=== PATIENT | male | born 1950 | race Caucasian/White ===

== ENCOUNTER 2017-09-24 10:00 | Outpatient (RCR) | payer MEDICARE, OTHER, SELFPAY ==
--- NOTE | 2017-08-26 12:49 | HP.PTEVAL_ITS ---
Patient's Visit Information AMAYA OSULLIVAN is a 67 year old M referred to Physical Therapy by DO SHAYNE Mart with a diagnosis of R TKA. Date of Evaluation: 08/25/17 Physical Therapist: John Paz - Visit Plan Frequency: 2-3x /Week Duration: 12 weeks Plan: Start with quad control, R knee ROM, pain control modalities including ice /vaso, glute strengthening and HS strengthening. Progress to functional strengthening and gait progression. - Subjective Subjective: Pt. is here today for his initial evaluation with diagnosis of R TKA. Pt. has his surgery on 08/17/17. Pt. is known to this PT as he had his L knee replaced last year. Pt. reports that he is doing okay and is doing his HEP as prescribed by physician. He lives at home with his . Pt. reports having increased R knee pain, currently 8/10. pt. has incerased pain with attempts to bend and straighten his knee. Pt. reports difficulty with walking, but has been getting up every hour to walk in the house. Pt. is also icing as prescribed. He denies N/T in either LE. Pt. does have pain in upper thigh close to where torniquete was placed. Prior to surgery pt. was ambulating without issues, but was having some R knee pain limiting overall mobility. Pt. is hopeful to get back to all recreational activities without issues. - Pain R knee Pain Intensity (Out of 10): 8 Pain Intensity Range: 5, 9 - Objective POSTURE: Pt. has increased L wt. shift in stance, flexed posture with lacking R TKE during stance. Pt. uses FWW for stability. Pt. is able to increase posture, but has difficulty achieving TKE on RLE. PALPATION: Pt. has increased redness around patella and close to incision. Pt. has no seeping/drainage and incision does appear to be intact (no signs of dehiscence), but has increased redness. His knee is warm to the touch and brawny like edema. Pt. has negative homans signs bilaterally and is wearing bilateral knee TEDs. NEUROLOGICAL: Pt. has normal sensation to light and sharp touch of bilateral LEs. Pt. has bilateral 2 + achilles DTR. Pt. is able to rise on heels and toes without visible weakness , but does use AD for stability. ROM: L knee 0-0-124deg. R knee 0-10-73deg in supine. Pt. has increased pain with end ranges of motions. Pt. has normal bilateral hip ROM, tight HS bilaterally. MMT- LLE- ankle 5/5 throughout; knee- ext 5-/5, flexion 5-/5; hip- flexion 4+/5, and 4+/5, ext 4+/5. RLE- ankle 5/5 throughout; knee- ext 3+/5 (no over pressure added), flexion 3+/5; hip- flexion 3/5, abd 4-/5, ext 4/5. GAIT: Pt. was able to ambulate 259ft. with FWW, but has increased use of AD, decreased TKE on R side, decreased R step length and lacks heel strike with initial contact. STAIRS: Pt. was able to negotiate 5 steps with 2HR with step to pattern laoding LLE throughout. - Goals Goal 1:: Pt. to be I with HEP. Goal Time Frame: 8-12 Weeks Goal 2:: Pt. to have increased R knee ROM to 0-0-120deg allowing for increased ability to complete al functional mobility. Goal Time Frame: 4-6 Weeks Goal 3:: Pt. to ambulate without AD with normal gait pattern for 1000+ feet with 0-1/10 pain allowing for increased independence in community. Goal Time Frame: 4-6 Weeks Goal 4:: Pt. to have increased RLE strength by 1/2 grade of all effected musculature. Goal Time Frame: 4-6 Weeks Goal 5:: Pt. to negotiate steps with 1 HR with reciprocal pattern with 0-1/10 pain. Goal Time Frame: 6-8 Weeks Goal 6:: Pt. to sleep throughout the night with 0-1/10 pain allowing for increased quality of life. Goal Time Frame: 4-6 Weeks - Rehabilitation Potential Physical Therapy Diagnosis: Pt. has hypombility, difficulty walking, RLE weakness and increased pain S/P R total knee arthroplasty. Pt. does have increased redness at his anterior knee and was pretty sensitive to light touch. He had negative homans sign. I did recommend that he follow up with his physician soon to rule out an infection. I went and talk to his physician office and was able to get him in this week. Rehabilitation Potential: Excellent - Anticipated Interventions Patient/Client Instruction: Educate patient on: Condition, Plan of Care, Risk Factors, Benefits of Fitness Program For the Purpose of:: To reduce risk of recurrence, To improve safety, To improve health and function, To foster healthy habits, To improve decision making, To facilitate caregiver knowledge, To improve self management, To prevent re-injury, To improve ability to perform tasks related to life management, To improve tolerance to ADL's Therapeutic Exercise to Include: Strength training, Power training, Endurance training, Balance training, Coordination, Agility training, Postural training, Flexibilty training, Gait and locomotor training, Passive ROM, Active ROM For the Purpose of:: To decrease pain, To decrease swelling/inflammation, To increase ROM, To improve nutrient delivery to tissue, To increase oxygenation perfusion, To improve muscle performance and motor function, To improve ability to perform ADL's, To improve ability of physical actions for home/community/work /leisure, To improve gait and locomotor functions, To improve health of tissue, To decrease soft tissue restriction, To increase flexibility/ROM, To improve endurance, To improve balance IF ES: Yes Cryotherapy (ice pack, ice massage): Yes Vasopneumatic device: Yes For the Purpose of:: To decrease pain, To decrease swelling/inflammation, To increase ROM Thank you for the opportunity to evaluate your patient. For Medicare and Medicare HMO plans, please review the plan of care and approve it. It will need to be FAXED BACK to us at [phone] for Medicare purposes. Please let me know if there are questions or concerns regarding this plan of care. Physician Signature: Date:
--- NOTE | 2017-09-28 07:49 | HP.PTREVAL_ITS ---
Sunny Henriquez DO, It has been my pleasure to treat AMAYA OSULLIVAN over the last 12 visits for R TKA. Please see the progress note below for an update on the physical therapy plan of care! Subjective: Pt. reports I am doing pretty well. He reports being 90% better overall. He is to follow up with physician later this date. Pt. is eager to get back to all exercises on own at this point in time. Objective/Function: ROM 0-0-117deg. Pt. reports increased discomfort with end range flexion. Pt. encouraged to increased ROM as tolerated. with strap and with rocking chair. MMT- 5/5 throughout- mild increase in symptoms with knee ext. Pt. is able to negotiate steps with reciprocal pattern without LOB mild increase in symptoms with descending, use of 1 HR. Pt. is able to ambulate unlimited distances but does have increased lateral sway and is methodical with pattern. Pt. is able to ambulate without AD, but does use walking stick on uneven surfaces and outdoors. Pt. reports no pain currently. Plan Plan: Pt. desires to continue on own at this point in time. I stressed to patient importance of increasing motion (maintaining knee ext and progressing flexion as able). Pt. to increase walking routine as tolerated. Pt. consents. Pt. to follow up with physician later this date. Pt. to trial on own at this point in time, but follow up with PT if needed at pt. request. Goals Goal 1:: Pt. to be I with HEP. Goal Time Frame: 8-12 Weeks Goal Progress: Goal Met Goal 2:: Pt. to have increased R knee ROM to 0-0-120deg allowing for increased ability to complete al functional mobility. Goal Time Frame: 4-6 Weeks Goal Progress: Progressing Goal 3:: Pt. to ambulate without AD with normal gait pattern for 1000+ feet with 0-1/10 pain allowing for increased independence in community. Goal Time Frame: 4-6 Weeks Goal Progress: Goal Met Goal 4:: Pt. to have increased RLE strength by 1/2 grade of all effected musculature. Goal Time Frame: 4-6 Weeks Goal Progress: Goal Met Goal 5:: Pt. to negotiate steps with 1 HR with reciprocal pattern with 0-1/10 pain. Goal Time Frame: 6-8 Weeks Goal Progress: Goal Met Goal 6:: Pt. to sleep throughout the night with 0-1/10 pain allowing for increased quality of life. Goal Time Frame: 4-6 Weeks Goal Progress: Goal Met Anticipated Interventions Patient/Client Instruction: Educate patient on: Condition, Plan of Care, Risk Factors, Benefits of Fitness Program For the Purpose of:: To reduce risk of recurrence, To improve safety, To improve health and function, To foster healthy habits, To improve decision making, To facilitate caregiver knowledge, To improve self management, To prevent re-injury, To improve ability to perform tasks related to life management, To improve tolerance to ADL's Therapeutic Exercise to Include: Strength training, Power training, Endurance training, Balance training, Coordination, Agility training, Postural training, Flexibilty training, Gait and locomotor training, Passive ROM, Active ROM For the Purpose of:: To decrease pain, To decrease swelling/inflammation, To increase ROM, To improve nutrient delivery to tissue, To increase oxygenation perfusion, To improve muscle performance and motor function, To improve ability to perform ADL's, To improve ability of physical actions for home/community/work /leisure, To improve gait and locomotor functions, To improve health of tissue, To decrease soft tissue restriction, To increase flexibility/ROM, To improve endurance, To improve balance IF ES: Yes Cryotherapy (ice pack, ice massage): Yes Vasopneumatic device: Yes For the Purpose of:: To decrease pain, To decrease swelling/inflammation, To increase ROM Please do not hesitate to contact me at [phone] by phone or Fax: if you have questions or concerns regarding this new plan of care! Sincerely, John Paz
--- NOTE | 2017-11-05 07:38 | HP.PTDCNRP_ITS ---
HP - Discharge Summary (1) - Patient Information AMAYA OSULLIVAN was seen in my office for initial evaluation on 08/25/17. The following Plan of Care was established for this patient: Initial Frequency: 2-3x /Week Initial Duration: 12 weeks - Anticipated Interventions Patient/Client Instruction: Educate patient on: Condition, Plan of Care, Risk Factors, Benefits of Fitness Program For the Purpose of:: To reduce risk of recurrence, To improve safety, To improve health and function, To foster healthy habits, To improve decision making, To facilitate caregiver knowledge, To improve self management, To prevent re-injury, To improve ability to perform tasks related to life management, To improve tolerance to ADL's Therapeutic Exercise to Include: Strength training, Power training, Endurance training, Balance training, Coordination, Agility training, Postural training, Flexibilty training, Gait and locomotor training, Passive ROM, Active ROM For the Purpose of:: To decrease pain, To decrease swelling/inflammation, To increase ROM, To improve nutrient delivery to tissue, To increase oxygenation perfusion, To improve muscle performance and motor function, To improve ability to perform ADL's, To improve ability of physical actions for home/community/work /leisure, To improve gait and locomotor functions, To improve health of tissue, To decrease soft tissue restriction, To increase flexibility/ROM, To improve endurance, To improve balance IF ES: Yes Cryotherapy (ice pack, ice massage): Yes Vasopneumatic device: Yes For the Purpose of:: To decrease pain, To decrease swelling/inflammation, To increase ROM This patient was last seen in our office 09/24/17. Pertinent comments regarding their Physical therapy will appear below: Pt. was seen for his last visit on 09/24/17 for his TKA. Pt. was progressing as expected at that point in time. He followed up with his physician and was cleared. Pt. has not been back to PT since. Pt. has not been seen in ~6 weeks and will be DC from PT at this point in time. At this point I will be discontinuing this patient from physical therapy. I would be happy to see this patient again in the future if found appropriate by the physician. Thank you! John Paz
== END 2017-09-24 19:00 | disposition home or self-care (01) ==
LOC: PT 10:00
PROVIDERS: Family Provider Family Medicine; PCP Family Medicine; Visit Provider Orthopaedic Surgery
DX: Z96.651 Presence of right artificial knee joint (principal)
CPT/HCPCS: 97016; 97110; 97140; 97161; 97530

== ENCOUNTER → 2017-09-24 13:03 | Outpatient (CLI) | payer MEDICARE, OTHER, SELFPAY ==
--- NOTE | 2017-09-24 13:06 | RAD_ITS ---
STUDY: X-RAY - RIGHT KNEE REASON FOR EXAM: Male, 67 years old. Postop TECHNIQUE: 4 view(s) of the knee. Weight-bearing COMPARISON: 08/27/2017 FINDINGS: Total knee arthroplasty in anatomic alignment with normal bone interface. Mild effusion. Resorption of previous soft postsurgical soft tissue changes. RAD/Knee 4 or More Views IMPRESSION: Total knee arthroplasty in anatomic alignment with residual effusion. Electronically Signed: Ciara Patel MD at 11:57 EST , Service support ,
== END ==
PROVIDERS: Family Provider Family Medicine; PCP Family Medicine; Visit Provider Orthopaedic Surgery
DX: M25.561 Pain in right knee (principal)
CPT/HCPCS: 73564

== ENCOUNTER → 2017-10-15 09:49 | Outpatient (CLI) | payer MEDICARE, OTHER, SELFPAY ==
[2017-10-15 13:04] LABS: PSA,Total - Annual Screen 7.64 ng/mL (0.00-4.00)
[2017-10-15 13:09] LABS: AST(SGOT) 15 U/L (15-37); Alanine Aminotransfer ALT/SGPT 15 U/L (16-61); Albumin, Serum 3.8 g/dL (3.2-5.0); Alkaline Phosphatase 153 U/L (45-117); Bilirubin, Direct 0.21 mg/dL (0.00-0.30); Cholesterol 163 mg/dL (200); Globulin 3.9 g/dL (2.2-4.2); High Density Lipoprotein 42 mg/dL; Protein, Total 7.7 g/dL (6.4-8.2); Triglycerides 105 mg/dL; Very Low Density Lipoprotein 21 mg/dL (5-40)
[2017-10-15 13:14] LABS: Hemoglobin A1c 5.4 % (4.2-6.3)
== END ==
PROVIDERS: Family Provider Family Medicine; PCP Family Medicine; Visit Provider Internal Medicine Cardiovascular Disease
DX: M10.9 Gout, unspecified (principal); R73.01 Impaired fasting glucose; E78.5 Hyperlipidemia, unspecified; Z12.5 Encounter for screening for malignant neoplasm of prostate; Z79.899 Other long term (current) drug therapy
CPT/HCPCS: 36415; 80061; 80076; 83036; 84153; 84550; G0103

== ENCOUNTER → 2017-11-05 12:49 | Outpatient (CLI) | payer MEDICARE, OTHER, SELFPAY ==
--- NOTE | 2017-11-05 12:53 | RAD_ITS ---
STUDY: X-RAY - LEFT KNEE REASON FOR EXAM: Male, 67 years old. Postop TECHNIQUE: 4 view(s) of the knee. COMPARISON: Prior study of 06/23/2017 FINDINGS: Status post total left knee replacement changes are seen with implants appearing in good position. There is no evidence of implant loosening or new associated fracture or dislocation. Findings are stable in the interval. RAD/Knee 4 or More Views IMPRESSION: Status post total left knee replacement changes seen with implants remaining in good position. There is no evidence of implant loosening or new associated fracture or dislocation. Electronically Signed: Keyshawn Méndez MD at 18:05 EDT , Service support ,
== END ==
PROVIDERS: Family Provider Family Medicine; PCP Family Medicine; Visit Provider Orthopaedic Surgery
DX: M17.0 Bilateral primary osteoarthritis of knee (principal)
CPT/HCPCS: 73564

== ENCOUNTER → 2017-11-08 15:19 | Outpatient (CLI) | payer MEDICARE, OTHER, SELFPAY ==
--- NOTE | 2017-11-08 15:23 | RAD_ITS ---
STUDY: X-RAY - LEFT FOOT CLINICAL: Male, 67 years old. Pain TECHNIQUE: Three view(s) of the foot were obtained. COMPARISON: October 30, 2013 FINDINGS: Bones: There are no acute osseous abnormalities. There is a small spur again seen off the inferior calcaneus. Spurring is again seen on the tarsal bones. Joints: There is moderate narrowing of the first through third TMT joints. Soft tissues: There is mild diffuse soft tissue swelling. Foreign body: None RAD/Foot min 3 Views IMPRESSION: There are stable degenerative changes in the midfoot. Electronically Signed: Alexandria Knox MD at 13:05 EDT Tel Direct: [phone], Service support ,
--- NOTE | 2017-11-08 15:23 | RAD_ITS ---
STUDY: X-RAY - RIGHT HAND REASON FOR EXAM: Male, 67 years old. Pain TECHNIQUE: Three view(s) of the hand were obtained. COMPARISON: None. FINDINGS: Bones: There is flattening of the scaphoid. There are minimal subchondral lucencies in the scaphoid and a few carpal bones. There are subchondral lucencies in the ulnar styloid. There is minimal sclerosis along the distal radius. Joints: There is widening of the scapholunate joint. There is mild narrowing of the interphalangeal joints. Soft tissues: There is mild diffuse soft tissue swelling. 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 There are mild degenerative changes in the interphalangeal joints. Electronically Signed: Alexandria Knox MD at 13:01 EDT Tel Direct: [phone], Service support ,
--- NOTE | 2017-11-08 15:23 | RAD_ITS ---
STUDY: X-RAY - LEFT HAND REASON FOR EXAM: Male, 67 years old. Pain. TECHNIQUE: Three view(s) of the hand were obtained. COMPARISON: None. FINDINGS: Bones: There are no acute osseous abnormalities. There are subchondral lucencies scattered in the distal radius and carpal bones, most pronounced in the scaphoid. Joints: There is narrowing of the radiocarpal joint. There is widening of the scapholunate joint. There is mild narrowing of the interphalangeal joints. Soft tissues: There is mild diffuse soft tissue swelling. Foreign body: There is a small radiopaque foreign body in the thenar eminence, likely old. 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 There are mild degenerative changes in the interphalangeal joints. Electronically Signed: Alexandria Knox MD at 12:59 EDT Tel Direct: [phone], Service support ,
--- NOTE | 2017-11-08 15:23 | RAD_ITS ---
STUDY: X-RAY - RIGHT FOOT CLINICAL: Male, 67 years old. Chronic foot pain, which is worse today. TECHNIQUE: 3 view(s) of the foot. COMPARISON: None. FINDINGS: There is a plantar calcaneal spur and there is a posterior calcaneal enthesophyte at the insertion site of the Achilles' tendon. Otherwise normal talus, calcaneus, and tarsal bones. There is degenerative arthrosis of the talonavicular and navicular-medial cuneiform articulations. There is questionably degenerative arthrosis of the second and third tarsal-metatarsal articulations as well. Otherwise normal visualized subtalar, calcaneocuboid, tarsal and tarsometatarsal articulations. Normal metatarsi. Normal metatarsophalangeal joint of the great toe. Normal tibial and fibular sesamoid bones. Normal interphalangeal joint of the great toe. Normal phalanges of the great toe. Normal second through fifth metatarsophalangeal joints. Normal interphalangeal joints and phalanges of the lesser toes. The soft tissue structures are unremarkable. RAD/Foot min 3 Views IMPRESSION: Degenerative changes, as above. No demonstrated fracture, dislocation, or destructive osseous lesion. Electronically Signed: Zak Lopez MD at 7:49 EDT , Service support ,
== END ==
PROVIDERS: Family Provider Family Medicine; PCP Family Medicine; Visit Provider Family Medicine
DX: M79.641 Pain in right hand (principal); M79.642 Pain in left hand; M79.671 Pain in right foot; M79.672 Pain in left foot
CPT/HCPCS: 73130; 73630

== ENCOUNTER → 2018-01-24 08:52 | Outpatient (CLI) | payer MEDICARE, OTHER, SELFPAY ==
--- NOTE | 2018-01-24 08:55 | RAD_ITS ---
STUDY: X-RAY - RIGHT KNEE REASON FOR EXAM: Male, 67 years old. Pain TECHNIQUE: 4 view(s) of the knee. COMPARISON: Right knee 09/24/2017 and 08/17/2017. FINDINGS: Total knee arthroplasty. The prosthetic components appear to be normally seated and articulated. Generalized osteopenia. Osseous structures acutely intact. There is evidence of a small to moderate suprapatellar knee joint effusion. RAD/Knee 4 or More Views IMPRESSION: Knee joint effusion. Appropriately articulated arthroplasty components. Intact bones. Electronically Signed: Aki Duffy, at 9:51 EDT Tel , Service support ,
== END ==
PROVIDERS: Family Provider Family Medicine; PCP Family Medicine; Visit Provider Orthopaedic Surgery
DX: M25.561 Pain in right knee (principal)
CPT/HCPCS: 73564

== ENCOUNTER → 2018-05-17 08:47 | Outpatient (CLI) | payer MEDICARE, OTHER, SELFPAY ==
--- NOTE | 2018-05-17 08:48 | RAD_ITS ---
STUDY: X-RAY - RIGHT WRIST REASON FOR EXAM: Chronic pain. TECHNIQUE: 3 view(s) of the wrist were obtained. COMPARISON: Radiographs 11/08/2017. FINDINGS: Normal visualized distal radius. There are ossicles at the ulnar styloid process and mild cystic change of the ulnar styloid process. Normal distal radioulnar articulation. 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 There is also mild widening of the scapholunate interval. There is moderate joint space narrowing of the triscaphe articulation. Normal carpometacarpal articulation of the thumb. Normal second through fifth carpometacarpal articulations. Normal visualized metacarpal bones. There is joint space narrowing of the first and third metacarpophalangeal joints. The soft tissue structures are unremarkable. RAD/Wrist min 3 Views IMPRESSION: VISI deformity. Mild widening of the scapholunate interval. 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 Electronically Signed: Eyal Souza MD at 9:12 EDT Tel , Service support ,
== END ==
PROVIDERS: Family Provider Family Medicine; PCP Family Medicine; Referring Provider Orthopaedic Surgery; Visit Provider Orthopaedic Surgery
DX: M25.531 Pain in right wrist (principal)
CPT/HCPCS: 73110

== ENCOUNTER → 2018-07-08 09:17 | Outpatient (CLI) | payer MEDICARE, OTHER, SELFPAY ==
[2018-07-08 09:17] VITALS: BMI 32.1
[2018-07-08 11:23] LABS: AST(SGOT) 17 U/L (15-37); Alanine Aminotransfer ALT/SGPT 17 U/L (16-61); Albumin, Serum 3.6 g/dL (3.2-5.0); Alkaline Phosphatase 124 U/L (45-117); Bilirubin, Direct 0.13 mg/dL (0.00-0.30); Cholesterol 180 mg/dL (200); Globulin 3.9 g/dL (2.2-4.2); High Density Lipoprotein 42 mg/dL; Protein, Total 7.5 g/dL (6.4-8.2); Triglycerides 140 mg/dL; Very Low Density Lipoprotein 28 mg/dL (5-40)
--- OUTSIDE RECORDS SUMMARY | 2018-09-02 04:12 | XMS RPT_ITS ---
:1950 Author Organization [place] Support Name Relationship Address Phone R Unavailable Unavailable Unavailable SHIPMICHELE LUZ Unavailable [address] + [place] [address] R Unavailable Unavailable Unavailable SHIPLETT LUZ Unavailable [address] + [place] [address] R Unavailable Unavailable Unavailable SHIPLETTCHARLOTTEA Unavailable [address] + [place] [address] R Unavailable Unavailable Unavailable ABRAN LUZ Unavailable [address] [phone]~330-4 [place] [address] R Unavailable Unavailable Unavailable CHARLOTTE OSULLIVANA Unavailable [address] [phone]~330-4 [place] [address] R Unavailable Unavailable Unavailable JONOLETTCHARLOTTEA Unavailable [address] [phone]~330-4 [place] [address] R Unavailable Unavailable Unavailable CHARLOTTE OSULLIVANA Unavailable [address] [phone]~330-4 [place] [address] R Unavailable Unavailable Unavailable CHARLOTTE OSULLIVANA Unavailable [address] [phone]~330-4 [place] [address] R Unavailable Unavailable Unavailable JONOLETTCHARLOTTEA Unavailable [address] [phone]~330-4 [place] [address] R Unavailable Unavailable Unavailable CHARLOTTE OSULLIVANA Unavailable [address] [phone]~330-4 [place] [address] R Unavailable Unavailable Unavailable JONOLETTCHARLOTTEA Unavailable [address] [phone]~330-4 [place] [address] R Unavailable Unavailable Unavailable CHARLOTTE OSULLIVANA Unavailable [address] [phone]~330-4 [place] [address] R Unavailable Unavailable Unavailable SHIPLETTLUZ Unavailable [address] [phone]~330-4 [place] [address] R Unavailable Unavailable Unavailable SHIPLETTCHARLOTTEA Unavailable [address] [phone]~330-4 [place] [address] R Unavailable Unavailable Unavailable SHIPLETTLUZ Unavailable [address] [phone]~330-4 [place] [address] R Unavailable Unavailable Unavailable SHIPLETT LUZ Unavailable [address] [phone]~330-4 [place] [address] R Unavailable Unavailable Unavailable SHIPLETTCHARLOTTEA Unavailable [address] [phone]~330-4 [place] [address] R Unavailable Unavailable Unavailable SHIPLETTCHARLOTTEA Unavailable [address] [phone]~330-4 [place] [address] R Unavailable Unavailable Unavailable SHIPLETTCHARLOTTEA Unavailable [address] [phone]~330-4 [place] [address] R Unavailable Unavailable Unavailable SHIPLETTCHARLOTTEA Unavailable [address] [phone]~330-4 [place] [address] R Unavailable Unavailable Unavailable SHIPLETTCHARLOTTEA Unavailable [address] [phone]~330-4 [place] [address] Care Team Providers Name Role Phone Sunny Henriquez Attending Unavailable Benjamin Prado Referring Unavailable JohanBenjamin hannon Primary Care Unavailable Sunny Henriquez Admitting Unavailable Sunny Henriquez Attending Unavailable Benjamin Prado Primary Care Unavailable Sunny Henriquez Referring Unavailable Sunny Henriquez Attending Unavailable Sunny Henriquez Attending Unavailable Sunny Henriquez Admitting Unavailable Sunny Henriquez Attending Unavailable Sunny Henriquez Referring Unavailable Benjamin Prado Primary Care Unavailable Sunny Henriquez Consulting Unavailable Sunny Henriquez Attending Unavailable Sunny Henriquez Referring Unavailable Benjamin Prado Primary Care Unavailable Sunny Henriquez Attending Unavailable JohanBenjamin hannon Referring Unavailable JohanBenjamin ivan Primary Care Unavailable Iam Moya Attending Unavailable Johan, Benjamin Referring Unavailable Johan, Benjamin Primary Care Unavailable Sunny Henriquez Attending Unavailable Johan, Benjamin Referring Unavailable Johan, Benjamin Primary Care Unavailable Martinez, Sunny Attending Unavailable Johan, Benjamin Primary Care Unavailable Moodispacandy, Baljinder Attending Unavailable Johan, Benjamin Primary Care Unavailable Awilda Heard Attending Unavailable Martinez, Sunny Attending Unavailable Johan, Benjamin Referring Unavailable Johan, Benjamin Primary Care Unavailable Martinez, Sunny Attending Unavailable Martinez, Sunny Referring Unavailable Johan, Benjamin Primary Care Unavailable Johan, Benjamin Attending Unavailable Johan, Benjamin Referring Unavailable Johan, Benjamin Primary Care Unavailable Moodispacandy, Baljinder Attending Unavailable Johan, Benjamin Referring Unavailable Johan, Benjamin Primary Care Unavailable Martinez, Sunny Attending Unavailable Johan, Benjamin Referring Unavailable Johan, Benjamin Primary Care Unavailable Martinez, Sunny Attending Unavailable Martinez, Sunny Referring Unavailable Johan, Benjamin Primary Care Unavailable Chicjesse, Elyse Attending Unavailable Johan, Benjamin Referring Unavailable Chicorelelana, Elyse Attending Unavailable Chicorelli, Elyse Referring Unavailable Johan, Benjamin Primary Care Unavailable Moodispacandy, Baljinder Attending Unavailable Moodispaw, Baljinder Referring Unavailable Johan, Benjamin Primary Care Unavailable PROBLEMS PROBLEMS DATE TYPE CONDITION / CODE ATTENDING STATUS SOURCE 07/08/2018 Unknown E78.5 - Baljinder Meneses Active [place] Hyperlipidemia, Community unspecified / Hospital E78.5(ICD-10) Repository 07/08/2018 Unknown I25.10 - Baljinder Meneses Active [place] Atherosclerotic heart Community disease of [facility] coronary artery Repository without angina pectoris / I25.10(ICD-10) 05/17/2018 Unknown M25.531 - Pain in Annyrocaelelana, Active [facility] right wrist / [place] Community M25.531(ICD-10) Hospital Repository 01/24/2018 Unknown M25.561 - Pain in Martinez Sunny Active [facility] right knee / Community M25.561(ICD-10) Hospital Repository 11/08/2017 Unknown M79.641 - Pain in Johan, Benjamin Active [place] right hand / Community M79.641(ICD-10) Hospital Repository 11/08/2017 Unknown M79.642 - Pain in Johan, Benjamin Active [place] left hand / Community M79.642(ICD-10) Hospital Repository 11/08/2017 Unknown M79.671 - Pain in Johan, Benjamin Active [facility] right foot / Community M79.671(ICD-10) Hospital Repository 11/08/2017 Unknown M79.672 - Pain in Benjamin Prado Active [facility] left foot / Community M79.672(ICD-10) Hospital Repository 11/05/2017 Unknown M17.0 - Bilateral Sunny Henriquez Active [facility] primary Community osteoarthritis of Hospital knee / M17.0(ICD-10) Repository 10/15/2017 Unknown M10.9 - Gout, Baljinder Meneses Active [place] unspecified / Community M10.9(ICD-10) Hospital Repository 10/15/2017 Unknown R73.01 - Impaired MoodisBaljinder calvert Active [place] fasting glucose / Community R73.01(ICD-10) Hospital Repository 10/15/2017 Unknown Z12.5 - Encounter for Baljinder Meneses Active [place] screening for [facility] malignant neoplasm of Hospital prostate / Repository Z12.5(ICD-10) 10/15/2017 Unknown Z79.899 - Other long Baljinder eMneses Active [place] term (current) drug [facility] therapy / Hospital Z79.899(ICD-10) Repository 11/05/2017 Unknown Z96.651 - Presence of Sunny Henriquez Active [place] right artificial knee [facility] joint / Hospital Z96.651(ICD-10) Repository 08/20/2017 Unknown G89.29 - Other Sunny Henriquez Active [place] chronic pain / Community G89.29(ICD-10) Hospital Repository PROCEDURES PROCEDURES No Procedure Records FoundRESULTS RESULTS LIVER PROFILE Collected: 07/08/2018 Status: F Source: [place] [facility] TYPE CODE TESTS RESULT OUT OF RANGE REFERENCE UNITS LAB L501.1500 6.4-8.2 g/dL Normal T PROT 7.5 LAB L501.1800 3.2-5.0 g/dL Normal ALB 3.6 LAB L501.1950 2.2-4.2 g/dL Normal GLOB 3.9 LAB L501.4100 15-37 U/L Normal AST 17 LAB L501.4305 45-117 U/L High ALK P 124 LAB L501.4405 16-61 U/L Normal ALT 17 LAB L501.4600 0.20-1.00 mg/dL Normal T BILI 0.50 LAB L501.4700 0.00-0.30 mg/dL Normal D BILI 0.13 Performed By: #### L500.3400, L500.4100 #### [facility] [address] [place], [address] LIPID PROFILE Collected: 07/08/2018 Status: F Source: [place] 9:30 AM [facility] TYPE CODE TESTS RESULT OUT OF RANGE REFERENCE UNITS LAB L501.4900 200 mg/dL Normal CHOL 180 Result Comment: <200 mg/dL Desirable 200-240 mg/dL Borderline >240 mg/dL High Risk LAB L501.5000 mg/dL Normal TRIG 140 Result Comment: The drugs N-Acetylcysteine and Metamizole may falsely depress this assay. Serum Triglycerides Reference Interval Normal <150 mg/dL Borderline high 150 - 199 mg/dL High 200 - 499 mg/dL Very High > or = 500 mg/dL LAB L501.6400 mg/dL Normal HDL 42 Result Comment: The drugs N-Acetylcysteine and Metamizole may falsely depress this assay. Reference Range HDL <40 mg/dL Low HDL Cholesterol HDL >or= 60 mg/dL High HDL Cholesterol LAB L501.6500 0-130 mg/dL Normal LDL 110 LAB L501.6600 5-40 mg/dL Normal VLDL 28 Performed By: #### L500.3400, L500.4100 #### [facility] [address] [place], [address] ORTHOPEDIC VISIT Observed: 05/17/2018 Status: F Source: [place] REPORT 5:00 PM [facility] Orthopaedics AND Sports Medicine [address] [place] [address] 5 [place] [address] OFFICE VISIT Date of Service: 05/17/18 MR#: [id number] Acct: [id number] Name: AMAYA OSULLIVAN Rep #: [id number] : 1950 Provider: Elyse Krueger DO Age/Sex: 67/M Location: [place] Status: Signed Intake Intake Visit Reasons: RIGHT WRIST Is patient in pain?: Yes Pain scale (1-10): 5 Allergies acetaminophen [From Percocet] Allergy (Mild, Verified 12/06/17 09:18) hallunications atorvastatin [From Lipitor] Allergy (Mild, Verified 12/06/17 09:18) unknown lovastatin [From Mevacor] Allergy (Mild, Verified 12/06/17 09:18) unknown oxycodone [From Percocet] Allergy (Mild, Verified 12/06/17 09:18) hallunications pravastatin [From Pravachol] Allergy (Mild, Verified 12/06/17 09:18) unknown morphine Allergy (Verified 12/06/17 09:18) Hives hydromorphone [From Dilaudid] Adverse Reaction (Verified 12/06/17 09:18) Itching Medications Niacin SA [Niaspan] 2,000 mg PO QHS 05/18/13 [History Confirmed 12/06/17] Allopurinol [Zyloprim] 300 mg PO DAILY 05/04/17 [History Confirmed 12/06/17] Amlodipine [Norvasc] 5 mg PO DAILY 08/06/17 [History Confirmed 12/06/17] aspirin 325 mg tablet 325 mg PO QDAY 09/16/17 [History Confirmed 12/06/17] ezetimibe 10 mg tablet 10 mg PO DAILY #30 tab 09/27/17 [Rx Confirmed 12/06/17] colchicine 0.6 mg tablet 0.6 mg PO QDAY PRN 10/22/17 [History Confirmed 12/06/17] lisinopril 20 mg tablet 20 mg PO QDAY 10/22/17 [History Confirmed 12/06/17] meloxicam 15 mg tablet 15 mg PO QDAY 10/22/17 [History Confirmed 12/06/17] nitroglycerin 0.4 mg sublingual tablet 0.4 mg SUBLINGUAL Q5M PRN 10/22/17 [History Confirmed 12/06/17] acetaminophen 500 mg capsule 500 mg PO Q6H PRN 12/06/17 [History Confirmed 12/06/17] gemfibrozil 600 mg tablet 600 mg PO BIDAC #180 tab 04/14/18 [Rx] PFSH Medical History Old myocardial infarction (Acute) Bilateral carotid bruits (Chronic) 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) Hyperlipidemia (Chronic) Hypertension (Chronic) Arthritis (Chronic) Gout (Chronic) Osteoarthritis of knees, bilateral (Chronic) Myocardial infarction (Inactive) Surgical History Presence of stent in coronary artery (Chronic) Postsurgical percutaneous transluminal coronary angioplasty (PTCA) status (Chronic) History of arthroplasty of right knee (Acute) History of carpal tunnel surgery (Chronic) History of total left knee replacement (Chronic) History of arthroscopy of right knee (Resolved) Carpal tunnel syndrome (Inactive) S/P coronary artery stent placement (Inactive) S/P right knee arthroscopy (Inactive) S/P total knee arthroplasty (Inactive) Trigger finger (Inactive) Family History Father COPD (chronic obstructive pulmonary disease) Mother Cancer Brother Myocardial infarction CVA (cerebral vascular accident) CAD (coronary artery disease) Diabetes Hyperlipidemia Sister COPD (chronic obstructive pulmonary disease) Ovarian cancer Social History Smoking Status: Former smoker alcohol intake: never substance use type: does not use HPI RIGHT WRIST: Details: AMAYA OSULLIVAN is a 67 year old M here today for right wrist pain in the ulnar aspect with all rom. He denies any injury and Denies numbness, tingling or other associated symptoms. He has pain to touch as well. Minimal swelling and no deformity. Denies any bracing. 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 Ortho Exam Right Wrist/Hand Skin/Wound: Yes CDI Contralateral Normal: Yes Right Wrist: Yes ROM-Pronation 0-80, ROM-Supination 0-90, ROM-Extension 0-60 (40) and ROM-Flexion 0-80 (40) Sensation: Radial: I, Ulnar: I, Median: I Office Procedures Ortho Injections Injections Details: Obtained consent for injection. Under sterile conditions, injected the patients right ECU/TFCC area with 1cc bupivacaine and 1/2 cc kenalog. The patient tolerated the injection well without any noted complication. Patient should call our office if redness develops, pain worsens or if they have any concerns. Office Meds Kenalog Performing Provider: Elyse Krueger DO Administered by: Elyse Krueger DO on 05/17/18 09:07 Dose Route Admin Location Lot Number Expiration DateNDC [employer] Operator 20 mg Tendon Sheath IECU [id number] 07/09/19 7659-7616-25 [facility]. SQUIBB Assessment AND Plan 1. Right wrist pain M25.531 Plan xrays reviewed which show what appears to be chronic VISI deformity with ulna shortening. patient had difficult but pos clunk on shucking of lunate ulnar sided pain worse with pronation and ulnar deviation discussed treatment option of LT fusion by hand surgeon and patient given hand surgeon info for further evaluation/treatment. patient elected to proceed with injection into ulna tfcc region. Discussed with patient options for bracing etc. to decrease pain. Patient will purchase an [id number] wrist brace. Again discussed that this needs to be further evaluated by hand surgeon but patient deferred single at this time but we did give him information of hand surgeons in the area Dr. Iverson and Dr. Mann. X-rays were reviewed. There is no obvious fracture, dislocation, or lucency noted. Explained that he has ulnar shortening with a visi deformity, volar intercalated segmental instability. He is tender at the wrist and palpable shift with rom, and explained there are surgeries by hand specialist he can try or we can do an injection today for relief. He ca try an otc brace as well. Follow up or sooner if pain, swelling, numbness or associated symptoms, or concerns develop. All questions answered. Patient in agreement of plan. Orders Orders: Medications Discontinued: Kenalog (triamcinolone acetonide) [id number] mg (0.5 mL) Tendon Sheath Inj. ONCE 0.5 mL nued Reason: Office Medication has been Docu 0RF NS mented as given 2. 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 Laterality: right 05/17/18 1700 <Electronically signed by Elyse Krueger DO> Date Elyse Krueger DO Cosignfannie Signature: Date (if applicable) CC: WRIST MIN 3 VIEWS Observed: 05/17/2018 Status: F Source: [place] 8:48 AM [facility] Imaging Services [address] [place] [address] Wrist min 3 Views MR#: [id number] Acct: [id number] Name: AMAYA OSULLIVAN Rep #: [id number] : 1950 M 67 From: Eyal Souza MD PCP: Benjamin Prado DO Status: REG CLI Study: Wrist min 3 Views Date of Exam: 05/17/18 Exam# [id number] Ordering Dr: Elyse Krueger DO STUDY: X-RAY - RIGHT WRIST REASON FOR EXAM: Chronic pain. TECHNIQUE: 3 view(s) of the wrist were obtained. COMPARISON: Radiographs 11/08/2017. FINDINGS: Normal visualized distal radius. There are ossicles at the ulnar styloid process and mild cystic change of the ulnar styloid process. Normal distal radioulnar articulation. 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 There is also mild widening of the scapholunate interval. There is moderate joint space narrowing of the triscaphe articulation. Normal carpometacarpal articulation of the thumb. Normal second through fifth carpometacarpal articulations. Normal visualized metacarpal bones. There is joint space narrowing of the first and third metacarpophalangeal joints. The soft tissue structures are unremarkable. RAD/Wrist min 3 Views IMPRESSION: VISI deformity. Mild widening of the scapholunate interval. 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 Electronically Signed: Eyal Souza MD at 9:12 EDT Tel , Service support , CC: Elyse Krueger DO; Benjamin Prado DO Manager Game: Signed ORTHOPEDIC VISIT Observed: 02/03/2018 Status: F Source: [place] REPORT 10:01 AM [facility] Orthopaedics AND Sports Medicine [address] [place] [address] OFFICE VISIT Date of Service: 01/24/18 MR#: [id number] Acct: [id number] Name: AMAYA OSULLIVAN Rep #: [id number] : 1950 Provider: Sunny Henriquez DO Age/Sex: 67/M Location: [facility] Status: Signed Intake Intake Visit Reasons: RIGHT KNEE Is patient in pain?: Yes Pain scale (1-10): 3 Allergies acetaminophen [From Percocet] Allergy (Mild, Verified 12/06/17 09:18) hallunications atorvastatin [From Lipitor] Allergy (Mild, Verified 12/06/17 09:18) unknown lovastatin [From Mevacor] Allergy (Mild, Verified 12/06/17 09:18) unknown oxycodone [From Percocet] Allergy (Mild, Verified 12/06/17 09:18) hallunications pravastatin [From Pravachol] Allergy (Mild, Verified 12/06/17 09:18) unknown morphine Allergy (Verified 12/06/17 09:18) Hives hydromorphone [From Dilaudid] Adverse Reaction (Verified 12/06/17 09:18) Itching Medications Gemfibrozil [Lopid] 600 mg PO BIDAC 05/18/13 [History Confirmed 12/06/17] Niacin SA [Niaspan] 2,000 mg PO QHS 05/18/13 [History Confirmed 12/06/17] Allopurinol [Zyloprim] 300 mg PO DAILY 05/04/17 [History Confirmed 12/06/17] Amlodipine [Norvasc] 5 mg PO DAILY 08/06/17 [History Confirmed 12/06/17] aspirin 325 mg tablet 325 mg PO QDAY 09/16/17 [History Confirmed 12/06/17] ezetimibe 10 mg tablet 10 mg PO DAILY #30 tab 09/27/17 [Rx Confirmed 12/06/17] colchicine 0.6 mg tablet 0.6 mg PO QDAY PRN 10/22/17 [History Confirmed 12/06/17] lisinopril 20 mg tablet 20 mg PO QDAY 10/22/17 [History Confirmed 12/06/17] meloxicam 15 mg tablet 15 mg PO QDAY 10/22/17 [History Confirmed 12/06/17] nitroglycerin 0.4 mg sublingual tablet 0.4 mg SUBLINGUAL Q5M PRN 10/22/17 [History Confirmed 12/06/17] acetaminophen 500 mg capsule 500 mg PO Q6H PRN 12/06/17 [History Confirmed 12/06/17] PFSH Medical History Presence of stent in coronary artery (Chronic) Old myocardial infarction (Acute) Bilateral carotid bruits (Chronic) 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) Hyperlipidemia (Chronic) Hypertension (Chronic) Arthritis (Chronic) Gout (Chronic) Osteoarthritis of knees, bilateral (Chronic) Myocardial infarction (Inactive) Surgical History Postsurgical percutaneous transluminal coronary angioplasty (PTCA) status (Chronic) History of arthroplasty of right knee (Acute) History of carpal tunnel surgery (Chronic) History of total left knee replacement (Chronic) History of arthroscopy of right knee (Resolved) Carpal tunnel syndrome (Inactive) S/P coronary artery stent placement (Inactive) S/P right knee arthroscopy (Inactive) S/P total knee arthroplasty (Inactive) Trigger finger (Inactive) Family History Father COPD (chronic obstructive pulmonary disease) Mother Cancer Brother Myocardial infarction CVA (cerebral vascular accident) CAD (coronary artery disease) Diabetes Hyperlipidemia Sister COPD (chronic obstructive pulmonary disease) Ovarian cancer Social History Smoking Status: Former smoker alcohol intake: never substance use type: does not use HPI RIGHT KNEE: Details: AMAYA OSULLIVAN is a 67 year old M here today for right knee f/u on 08/2017 TKA, he has no complaints of pain and has full ROM. He does complain of left knee pain, with a palable knot just above the patella. He has pain with flexion, with palpation and has changed his gait to make the right knee his lead leg due to the pain associated with those activities on the left side. He has intermittent swelling of bilateral knees. Rarely using tylenol for pain relief. He is also having increased stiffness in the mornings. Normal lateral knee/lower leg sensation changes from surgery. ROS Musc Reports joint pain, Reports muscle weakness, Reports stiffness, Reports limited joint movement, Reports as per HPI Ortho Exam Right Knee Contralateral Normal: Yes Swelling: No Homans Sign: No Stability: NML: Posterior Drawer, NML: Valgus 0, NML: Valgus 30, NML: Varus 0, NML: Varus 30, NML: Dial 90, NML: Dial 30 Popliteal Adenopathy: No Patella Translation: 1 Apprehension with Lateral Translation: No Patellar Tilt Normal: Yes Patella Grind: No KNEE: Patient is alert oriented 3 no acute distress. Appropriate eye contact and affect. Walks a nonantalgic gait. Remains intact from L1-S1 distributions. He has positive pulses. Gross motor strength 5 out of 5 in all planes. Perform straight leg raise without lag. Right knee examination shows range of motion from 0-130. His incision clean dry and intact he is ligamentously stable all planes. No calf pain negative Homans no adenopathy. Left knee examination shows equivalent range of motion he is a bit tender palpation across the dorsal aspect of the incision where appears to be either a suture versus a possibility of a small pieces cement and or small avulsion fracture off the superior pole the patella was identified on this plain films. Otherwise no effusion range of motion looks very good on aspirin which is point tenderness on that left side really equivalent to the right knee. X-rays: Evaluated by myself patient of the right knee-hardware otherwise well-seated well-placed status post right total knee arthroplasty press fit. Left Knee Patella Translation: 1 Assessment AND Plan Problems 1. History of total bilateral knee replacement Z96.653 2. Primary osteoarthritis of both knees M17.0 Plan Assessment: Bilateral osteoarthritis of the knees status post bilateral total knee arthroplasties doing well. Plan: At this point time patient's range of motion of bilateral knees is really doing very well. Patient is pleased overall symptoms and continues to make progress. He does have an issue on the left side where again it may be either a small piece of cement from a small avulsion type fracture of the superior pole patella for symptomatic suture. I discussed with the patient surgical options for that would be to be opening the wound up which never really my favorite thing to do with a total knee in place especially if there may be a small amount of extensor mechanism disruption which are probably just be a delayed closure. However I would recommend follow-up with Dr. Hart at [facility] if this remains symptomatic. For now just continued observation and follow-up in 6 months for bilateral radiographs for serial follow-up. Patient can follow-up here for those radiographs but is aware if there is any technical issues wrong with the prosthesis he will be referred out to my partner does not do knee replacements. Patient family agrees with plan. Any major issues return. Orders Orders: Coding Level of Care Code Off vis,est,level 4 Diagnoses History of total bilateral knee replacement Z96.653 Primary osteoarthritis of both knees M17.0 Osteoarthritis type: primary 02/03/18 1001 <Electronically signed by Sunny Henriquez DO> Date Sunny Henriquez DO Cosigner Signature: Date (if applicable) CC: KNEE 4 OR MORE Observed: 01/24/2018 Status: F Source: [facility] 8:56 AM [facility] [facility] [address] [facility] [place] [address] Knee 4 or More Views MR#: [id number] Acct: [id number] Name: AMAYA OSULLIVAN Rep #: [id number] : 1950 M 67 From: Aki Duffy MD PCP: Benjamin Prado DO Status: REG CLI Study: Knee 4 or More Views Date of Exam: 01/24/18 Exam# [id number] Ordering Dr: Sunny Henriquez DO STUDY: X-RAY - RIGHT KNEE REASON FOR EXAM: Male, 67 years old. Pain TECHNIQUE: 4 view(s) of the knee. COMPARISON: Right knee 09/24/2017 and 08/17/2017. FINDINGS: Total knee arthroplasty. The prosthetic components appear to be normally seated and articulated. Generalized osteopenia. Osseous structures acutely intact. There is evidence of a small to moderate suprapatellar knee joint effusion. RAD/Knee 4 or More Views IMPRESSION: Knee joint effusion. Appropriately articulated arthroplasty components. Intact bones. Electronically Signed: Aki Duffy, at 9:51 EDT Tel , Service support , CC: Benjamin Prado DO; Sunny Henriquez DO Manager Game: Signed CARDIOLOGY VISIT Observed: 12/06/2017 Status: F Source: [place] REPORT 10:05 AM [facility] [address] [place] [address] OFFICE VISIT Date of Service: 12/06/17 MR#: [id number] Acct: [id number] Name: AMAYA OSULLIVAN Rep #: [id number] : 1950 Provider: Baljinder Meneses MD Age/Sex: 67/M Location: [facility] Status: Signed HPI HPI Details: AMAYA OSULLIVAN, is a 67 M who presents to the office today for for outpatient cardiovascular follow-up. Since his last visit of April 132016 he states overall he has been doing well from a cardiac standpoint. He has had no ongoing issues with classic angina pectoris nor has he had use nitroglycerin sublingual. There has been no issues with CHF or pulmonary edema. There has been no near syncope or syncope. He has not required any additional cardiovascular testing other than his lipid profile which was performed on 10/15/2017. At that time his total cholesterol was 163 with an LDL of 100 and an HDL of 42 and a triglyceride level of 105. His AST and ALT were within acceptable limits. Intake Vital Signs12/06/17 Height 5 ft 7 in 12/06/17 Weight: 212 lb 12/06/17 Body Mass Index (BMI) 33.2 12/06/17 Blood Pressure 148/70 Intake Visit Reasons: 6 M FU Allergies acetaminophen [From Percocet] Allergy (Mild, Verified 12/06/17 09:18) hallunications atorvastatin [From Lipitor] Allergy (Mild, Verified 12/06/17 09:18) unknown lovastatin [From Mevacor] Allergy (Mild, Verified 12/06/17 09:18) unknown oxycodone [From Percocet] Allergy (Mild, Verified 12/06/17 09:18) hallunications pravastatin [From Pravachol] Allergy (Mild, Verified 12/06/17 09:18) unknown morphine Allergy (Verified 12/06/17 09:18) Hives hydromorphone [From Dilaudid] Adverse Reaction (Verified 12/06/17 09:18) Itching Medications Gemfibrozil [Lopid] 600 mg PO BIDAC 05/18/13 [History Confirmed 12/06/17] Niacin SA [Niaspan] 2,000 mg PO QHS 05/18/13 [History Confirmed 12/06/17] Allopurinol [Zyloprim] 300 mg PO DAILY 05/04/17 [History Confirmed 12/06/17] Amlodipine [Norvasc] 5 mg PO DAILY 08/06/17 [History Confirmed 12/06/17] aspirin 325 mg tablet 325 mg PO QDAY 09/16/17 [History Confirmed 12/06/17] ezetimibe 10 mg tablet 10 mg PO DAILY #30 tab 09/27/17 [Rx Confirmed 12/06/17] colchicine 0.6 mg tablet 0.6 mg PO QDAY PRN 10/22/17 [History Confirmed 12/06/17] lisinopril 20 mg tablet 20 mg PO QDAY 10/22/17 [History Confirmed 12/06/17] meloxicam 15 mg tablet 15 mg PO QDAY 10/22/17 [History Confirmed 12/06/17] nitroglycerin 0.4 mg sublingual tablet 0.4 mg SUBLINGUAL Q5M PRN 10/22/17 [History Confirmed 12/06/17] acetaminophen 500 mg capsule 500 mg PO Q6H PRN 12/06/17 [History Confirmed 12/06/17] PFSH Medical History Presence of stent in coronary artery (Chronic) Old myocardial infarction (Acute) Bilateral carotid bruits (Chronic) 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) Hyperlipidemia (Chronic) Hypertension (Chronic) Arthritis (Chronic) Gout (Chronic) Osteoarthritis of knees, bilateral (Chronic) Myocardial infarction (Inactive) Surgical History Postsurgical percutaneous transluminal coronary angioplasty (PTCA) status (Chronic) History of arthroplasty of right knee (Acute) History of carpal tunnel surgery (Chronic) History of total left knee replacement (Chronic) History of arthroscopy of right knee (Resolved) Carpal tunnel syndrome (Inactive) S/P coronary artery stent placement (Inactive) S/P right knee arthroscopy (Inactive) S/P total knee arthroplasty (Inactive) Trigger finger (Inactive) Family History Father COPD (chronic obstructive pulmonary disease) Mother Cancer Brother Myocardial infarction CVA (cerebral vascular accident) CAD (coronary artery disease) Diabetes Hyperlipidemia Sister COPD (chronic obstructive pulmonary disease) Ovarian cancer Social History Smoking Status: Former smoker alcohol intake: never substance use type: does not use ROS Const Const: Negative for fatigue, weakness, weight gain, weight loss, frequent falls or excessive sweating Eyes Eyes: Negative for change in vision, blurry vision or transient loss of vision ENT ENT: Negative for dizziness or balance problems Cardio Chest Pain: No Edema: None Muscle aches with walking: None Resp Respiratory: Positive for SOB with activity (slight); negative for SOB at rest GI GI: Negative vomiting or vomiting blood/hematemesis : Negative for hematuria Musc Musc: Positive for muscle aches/ myalgia (bilateral knee pain) and joint pain (HX osteoarthritis); negative for balance problems or muscle weakness Skin Skin: Negative non-healing lesions or rash Neuro Neuro: Negative for weakness, blurry vision, dizziness, lightheadedness, frequent falls or orthostatic symptoms Mitch Hematologic/Lymphatic: Negative for easy bleeding Endo Endo: Negative for fatigue or excessive sweating Psych Psych: Negative for anxiety or depression Allergy Allergy/Immunology: Negative for hives, Negative for rash Supplemental Info He had a transthoracic echocardiogram performed on 06/28/2004 at [facility]. The results are as noted below. FINDINGS: Normal mitral valve Normal aortic \alve Aortic root size upper normal Normal tricuspid valve Normal pulmonic Normal left ventricular systolic function EF 60-65% Mildly dilated left ventricle Normal left atrium Normal right ventricle Normal right atrium Normal pericardium AORTIC VALVE: -- MITRAL VALVE Grade of mitral regurgitation Trace PULMOMC VALVE: Grade of PI: Trace TRICUSPID VALVE Grade of tricuspid valve regurgitation Trace DOPPLER CONCLUSIONS: Trace mitral, tricuspid and pulmonic regurgitation Pharmacologic stress nuclear study was performed on 04/20/2017. The results are as noted below. Impression: 1. Rest and stress SPECT Cardiolite nuclear imaging demonstrating relative uniform tracer uptake and myocardial perfusion appearing within normal limits. 2. The gated Cardiolite study reports an LVEF of 70%. A diagnostic cardiac catheterization was performed at [facility] on 12/28/2006. The results are as noted below. CONCLUSIONS: Normal filling pressures Normaal LV Function. Nonobstructive coronary artery disease Patent Stent distal RCA His previous PCI was performed on 06/28/2004 at [facility]. The results are as noted below. CONCLUSIONS Good overall LV function with EF of 55% and mild inferior hypokinesis Two vessel coronary artery disease Sucuessful bare metal stealing of the distal RCA. Successful drug eluting stenting of the ostial first obtuse marginal coronary artery Assessment AND Plan 1. Atherosclerosis of barrow coronary artery of barrow heart without angina pectoris I25.10 PTCA of Lt CX 1996; PTCA/FIZT to OM and PTCA/BMS 06/12 Plan At the present time he appears to be doing well with no ongoing concerning symptoms or adverse events. He will continue risk factor modification and medical management. Orders Orders: 2. S/P PTCA (percutaneous transluminal coronary angioplasty) Z98.61 PTCA of Lt CX 1996; PTCA/FITZ to OM and PTCA/BMS 06/12 Plan His previous PCI procedure is as noted above. Again he will continue medical management and follow-up. 3. Bilateral carotid bruits R09.89 Plan He does have a history of carotid artery disease. Her his carotid artery duplex study performed in April 2017 he was reported as having moderate stenosis on the right and mild stenosis on the left. He will need to continue to follow peripheral vascular surgery as deemed appropriate. 4. Hyperlipidemia, unspecified hyperlipidemia type E78.5 Plan His lipid profile is as noted above. He will be scheduled for future outpatient fasting lipid and hepatic profile as deemed appropriate. Orders Orders: 5. Essential hypertension I10 Plan His systolic blood pressure is mildly elevated today. However his overall trends have been acceptable. He will continue to monitor his blood pressures for any significant change in his trends that would warrant further evaluation and care. Plan Detail Additional Comments Otherwise he will be scheduled for future outpatient cardiovascular follow-up reassessment as needed in the interim. Thank you for allowing me to participate in the care of your patient. Please don't hesitate to call if any issues arise. This note was generated using a voice recognition system and there may be incorrect words, spelling or punctuation that were not noted when reviewing the office note prior to saving. Follow Up 9 Months (PFM) Coding Level of Care Code Off vis,est,level 4 Diagnoses Atherosclerosis of barrow coronary artery of barrow heart without angina pectoris I25.10 [place] vs. transplanted heart: barrow heart S/P PTCA (percutaneous transluminal coronary angioplasty) Z98.61 Bilateral carotid bruits R09.89 Hyperlipidemia, unspecified hyperlipidemia type E78.5 Hyperlipidemia type: unspecified Essential hypertension I10 Hypertension type: essential hypertension Coding Level of Care Code Off vis,est,level 4 Diagnoses Atherosclerosis of barrow coronary artery of barrow heart without angina pectoris I25.10 [place] vs. transplanted heart: barrow heart S/P PTCA (percutaneous transluminal coronary angioplasty) Z98.61 Bilateral carotid bruits R09.89 Hyperlipidemia, unspecified hyperlipidemia type E78.5 Hyperlipidemia type: unspecified Essential hypertension I10 Hypertension type: essential hypertension 12/06/17 1005 <Electronically signed by Baljinder Meneses MD> Date Baljinder Meneses MD Cosigner Signature: Date (if applicable) CC: Benjamin Prado DO FOOT MIN 3 VIEWS Observed: 11/08/2017 Status: F Source: [place] 3:23 PM [facility] [address] [place] [id number] Foot min 3 Views MR#: [id number] Acct: [id number] Name: AMAYA OSULLIVAN Rep #: [id number] : 1950 M 67 From: Zak Lopez MD PCP: Benjamin Prado DO Status: REG CLI Study: Foot min 3 Views Date of Exam: 11/08/17 Exam# [id number] Ordering Dr: Benjamin Prado DO STUDY: X-RAY - RIGHT FOOT CLINICAL: Male, 67 years old. Chronic foot pain, which is worse today. TECHNIQUE: 3 view(s) of the foot. COMPARISON: None. FINDINGS: There is a plantar calcaneal spur and there is a posterior calcaneal enthesophyte at the insertion site of the Achilles' tendon. Otherwise normal talus, calcaneus, and tarsal bones. There is degenerative arthrosis of the talonavicular and navicular-medial cuneiform articulations. There is questionably degenerative arthrosis of the second and third tarsal-metatarsal articulations as well. Otherwise normal visualized subtalar, calcaneocuboid, tarsal and tarsometatarsal articulations. Normal metatarsi. Normal metatarsophalangeal joint of the great toe. Normal tibial and fibular sesamoid bones. Normal interphalangeal joint of the great toe. Normal phalanges of the great toe. Normal second through fifth metatarsophalangeal joints. Normal interphalangeal joints and phalanges of the lesser toes. The soft tissue structures are unremarkable. RAD/Foot min 3 Views IMPRESSION: Degenerative changes, as above. No demonstrated fracture, dislocation, or destructive osseous lesion. Electronically Signed: Zak Lopez MD at 7:49 EDT , Service support , CC: Benjamin Prado DO Manager Game: Signed HAND MIN 3 VIEWS Observed: 11/08/2017 Status: F Source: [place] 3:23 PM [facility] [address] [place] [address] Hand Min 3 Views MR#: [id number] Acct: [id number] Name: AMAYA OSULLIVAN Rep #: [id number] : 1950 M 67 From: Alexandria Knox MD PCP: Benjamin Prado DO Status: REG CLI Study: Hand Min 3 Views Date of Exam: 11/08/17 Exam# [id number] Ordering Dr: Benjamin Prado DO STUDY: X-RAY - LEFT HAND REASON FOR EXAM: Male, 67 years old. Pain. TECHNIQUE: Three view(s) of the hand were obtained. COMPARISON: None. FINDINGS: Bones: There are no acute osseous abnormalities. There are subchondral lucencies scattered in the distal radius and carpal bones, most pronounced in the scaphoid. Joints: There is narrowing of the radiocarpal joint. There is widening of the scapholunate joint. There is mild narrowing of the interphalangeal joints. Soft tissues: There is mild diffuse soft tissue swelling. Foreign body: There is a small radiopaque foreign body in the thenar eminence, likely old. 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 There are mild degenerative changes in the interphalangeal joints. Electronically Signed: Alexandria Knox MD at 12:59 EDT Tel Direct: [phone], Service support , CC: Benjamin Prado DO Manager Game: Signed HAND MIN 3 VIEWS Observed: 11/08/2017 Status: F Source: [place] 3:23 PM [facility] [address] [place] [address] Hand Min 3 Views MR#: [id number] Acct: [id number] Name: AMAYA OSULLIVAN Rep #: [id number] : 1950 M 67 From: Alexandria Knox MD PCP: Benjamin Prado DO Status: REG CLI Study: Hand Min 3 Views Date of Exam: 11/08/17 Exam# [id number] Ordering Dr: Benjamin Prado DO STUDY: X-RAY - RIGHT HAND REASON FOR EXAM: Male, 67 years old. Pain TECHNIQUE: Three view(s) of the hand were obtained. COMPARISON: None. FINDINGS: Bones: There is flattening of the scaphoid. There are minimal subchondral lucencies in the scaphoid and a few carpal bones. There are subchondral lucencies in the ulnar styloid. There is minimal sclerosis along the distal radius. Joints: There is widening of the scapholunate joint. There is mild narrowing of the interphalangeal joints. Soft tissues: There is mild diffuse soft tissue swelling. 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 There are mild degenerative changes in the interphalangeal joints. Electronically Signed: Alexandria Knox MD at 13:01 EDT Tel Direct: [phone], Service support , CC: Benjamin Prado DO Manager Game: Signed FOOT MIN 3 VIEWS Observed: 11/08/2017 Status: F Source: [place] 3:23 PM [facility] [address] [place] [address] Foot min 3 Views MR#: [id number] Acct: [id number] Name: AMAYA OSULLIVAN Rep #: [id number] : 1950 M 67 From: Alexandria Knox MD PCP: Benjamin Prado DO Status: REG CLI Study: Foot min 3 Views Date of Exam: 11/08/17 Exam# [id number] Ordering Dr: Benjamin Prado DO STUDY: X-RAY - LEFT FOOT CLINICAL: Male, 67 years old. Pain TECHNIQUE: Three view(s) of the foot were obtained. COMPARISON: October 30, 2013 FINDINGS: Bones: There are no acute osseous abnormalities. There is a small spur again seen off the inferior calcaneus. Spurring is again seen on the tarsal bones. Joints: There is moderate narrowing of the first through third TMT joints. Soft tissues: There is mild diffuse soft tissue swelling. Foreign body: None RAD/Foot min 3 Views IMPRESSION: There are stable degenerative changes in the midfoot. Electronically Signed: Alexandria Knox MD at 13:05 EDT Tel Direct: [phone], Service support , CC: Benjamin Prado DO Manager Game: Signed ORTHOPEDIC VISIT Observed: 11/08/2017 Status: F Source: [place] REPORT 8:07 AM [facility] [address] [place] [address] OFFICE VISIT Date of Service: 11/05/17 MR#: [id number] Acct: [id number] Name: AMAYA OSULLIVAN Rep #: [id number] : 1950 Provider: Sunny Henriquez DO Age/Sex: 67/M Location: [facility] [place] [place] Status: Signed Intake Intake Visit Reasons: RIGHT KNEE Chief Complaint: Nasal congestion and cough Allergies acetaminophen [From Percocet] Allergy (Mild, Verified 09/24/17 13:21) hallunications atorvastatin [From Lipitor] Allergy (Mild, Verified 09/24/17 13:21) unknown lovastatin [From Mevacor] Allergy (Mild, Verified 09/24/17 13:21) unknown oxycodone [From Percocet] Allergy (Mild, Verified 09/24/17 13:21) hallunications pravastatin [From Pravachol] Allergy (Mild, Verified 09/24/17 13:21) unknown morphine Allergy (Verified 09/24/17 13:21) Hives hydromorphone [From Dilaudid] Adverse Reaction (Verified 09/24/17 13:21) Itching Medications Gemfibrozil [Lopid] 600 mg PO BIDAC 05/18/13 [History Confirmed 10/22/17] Niacin SA [Niaspan] 2,000 mg PO QHS 05/18/13 [History Confirmed 10/22/17] Allopurinol [Zyloprim] 300 mg PO DAILY 05/04/17 [History Confirmed 10/22/17] Amlodipine [Norvasc] 5 mg PO DAILY 08/06/17 [History Confirmed 10/22/17] aspirin 325 mg tablet 325 mg PO QDAY 09/16/17 [History Confirmed 10/22/17] ezetimibe 10 mg tablet 10 mg PO DAILY #30 tab 09/27/17 [Rx Confirmed 10/22/17] albuterol sulfate HFA 90 mcg/actuation aerosol inhaler 1 puff INHALATION Q6H 10/22/17 [History Confirmed 10/22/17] colchicine 0.6 mg tablet 0.6 mg PO QDAY PRN 10/22/17 [History Confirmed 10/22/17] lisinopril 20 mg tablet 20 mg PO QDAY 10/22/17 [History Confirmed 10/22/17] meloxicam 15 mg tablet 15 mg PO QDAY 10/22/17 [History Confirmed 10/22/17] nitroglycerin 0.4 mg sublingual tablet 0.4 mg SUBLINGUAL Q5M PRN 10/22/17 [History Confirmed 10/22/17] PFSH Medical History Presence of stent in coronary artery (Chronic) Old myocardial infarction (Acute) Bilateral carotid bruits (Chronic) 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) Hyperlipidemia (Chronic) Hypertension (Chronic) Arthritis (Chronic) Gout (Chronic) Osteoarthritis of knees, bilateral (Chronic) Myocardial infarction (Inactive) Surgical History Postsurgical percutaneous transluminal coronary angioplasty (PTCA) status (Chronic) History of arthroplasty of right knee (Acute) History of carpal tunnel surgery (Chronic) History of total left knee replacement (Chronic) History of arthroscopy of right knee (Resolved) Carpal tunnel syndrome (Inactive) S/P coronary artery stent placement (Inactive) S/P right knee arthroscopy (Inactive) S/P total knee arthroplasty (Inactive) Trigger finger (Inactive) Family History Father COPD (chronic obstructive pulmonary disease) Mother Cancer Brother Myocardial infarction CVA (cerebral vascular accident) CAD (coronary artery disease) Diabetes Hyperlipidemia Sister COPD (chronic obstructive pulmonary disease) Ovarian cancer Social History Smoking Status: Former smoker alcohol intake: never substance use type: does not use HPI RIGHT KNEE: Details: AMAYA OSULLIVAN is a 67 year old M here today for Ortho Exam Right Knee Skin/Wound: Yes CDI, Yes healed Contralateral Normal: No Swelling: No Homans Sign: No Knee ROM: Yes ROM-Flexion 0-140 (0 115) Examination: No Med jt line tenderness, No Lat jt line tenderness, No TTP inf pole patella, No Crepitus, No Pain with flexion, No Pain with extention, No Ilana's Test, No Dial at 90, No Dial at 60, No Duck Walk Quad Atrophy: No Stability: NML: Posterior Drawer, NML: Valgus 0, NML: Valgus 30, NML: Varus 0, NML: Varus 30, NML: Dial 90, NML: Dial 30 Popliteal Adenopathy: No Patella Translation: 1 Apprehension with Lateral Translation: No Patellar Tilt Normal: Yes Patella Grind: No KNEE: Alert oriented 3 no acute distress. I contact affect. Otherwise intact from L1-S1 distributions. He has positive pulses. He has no calf pain negative Homans. Incision is clean dry and intact no signs of erythema able straight leg raise bilaterally without lag. Strength 5 out of 5. X-rays:-Left knee-no signs of any radiographic loosening to the left knee which the patient is roughly 6 months out from his total knee arthroplasty. Left Knee Skin/Wound: Yes CDI Contralateral Normal: No Swelling: No Homans Sign: No 1+: Effusion Knee ROM: Yes ROM-Flexion 0-140 (0 120) Examination: No med jt line tenderness, No Lat jt line tenderness, No TTP inf pole patella, No Crepitus, No Pain with flexion, No Ilana's Test, No Dial at 90, No Dial at 60, No Duck Walk Quad Atrophy: No Stability: NML: Posterior Drawer, NML: Valgus 0, NML: Valgus 30, NML: Varus 0, NML: Varus 30, NML: Dial 90, NML: Dial 30 Popliteal Adenopathy: No Patella Translation: 1 Apprehension with Lateral Translation: No Patellar Tilt Normal: Yes Patella Grind: No Assessment AND Plan Problems 1. Orthopedic aftercare Z47.89 Plan Assessment: After orthopedics for his right knee when she is roughly 3 months out from a total knee, patient is 6 months out from his left knee both knees are doing well. Plan: This point time patient continues to do well. I informed the patient I will be leaving the practice in February and I will see him one additional time for his right knee to get him roughly to the six-month benjamin postop. At which point time we will get new radiographs of the right knee no x-rays of the left. Patient has any issues with his knees at that point time I will refer him over to the [facility] and Dr. Hart Orders Orders: Coding Level of Care Code Global Post Op Diagnoses Orthopedic aftercare Z47.89 11/08/17 0807 <Electronically signed by Sunny Henriquez DO> Date Sunny Henriquez DO Cosigner Signature: Date (if applicable) CC: KNEE 4 OR MORE Observed: 11/05/2017 Status: F Source: [place] [employer] 12:53 PM [facility] Imaging Services [address] [place] [id number] Knee 4 or More Views MR#: [id number] Acct: [id number] Name: AMAYA OSULLIVAN Konrad Rep #: [id number] : 1950 M 67 From: Keyshawn Méndez MD PCP: Benjamin Prado DO Status: REG CLI Study: Knee 4 or More Views Date of Exam: 11/05/17 Exam# [id number] Ordering Dr: Sunny Henriquez DO STUDY: X-RAY - LEFT KNEE REASON FOR EXAM: Male, 67 years old. Postop TECHNIQUE: 4 view(s) of the knee. COMPARISON: Prior study of 06/23/2017 FINDINGS: Status post total left knee replacement changes are seen with implants appearing in good position. There is no evidence of implant loosening or new associated fracture or dislocation. Findings are stable in the interval. RAD/Knee 4 or More Views IMPRESSION: Status post total left knee replacement changes seen with implants remaining in good position. There is no evidence of implant loosening or new associated fracture or dislocation. Electronically Signed: Keyshawn Méndez MD at 18:05 EDT , Service support , CC: Benjamin Prado DO; Sunny Henriquez DO Manager Game: Signed URIC ACID Collected: 10/15/2017 Status: F Source: [place] 9:50 AM [facility] Order Comment: DR. PRADO ORDERED URIC ACID, PSA, A1C. DR. MENESES ORDERED LIVER AND LIPID TYPE CODE TESTS RESULT OUT OF RANGE REFERENCE UNITS LAB L501.1400 3.5-7.2 mg/dL Normal URIC 6.0 Result Comment: The drugs N-Acetylcysteine and Metamizole may falsely depress this assay. Performed By: #### L501.1400, L501.9910 #### [facility] [address] [place], [address] PSA,TOTAL - ANNUAL Collected: 10/15/2017 Status: F Source: [place] SCREEN 9:50 AM [facility] Order Comment: DR. PRADO ORDERED URIC ACID, PSA, A1C. DR. MENESES ORDERED LIVER AND LIPID TYPE CODE TESTS RESULT OUT OF REFERENCE UNITS RANGE LAB L501.9910 0.00-4.00 ng/mL High PSA,TOT 7.64 SCREEN Result Comment: This test was performed using the TPSA assay method for the [employer] chemistry system. Values obtained with different assay methods cannot be used interchangably. When changing PSA assays in the course of monitoring a patient, additional sequential testing should be carried out to confirm baseline values. Performed By: #### L501.1400, L501.9910 #### [facility] [address] [place], [place], [address] LIVER PROFILE Collected: 10/15/2017 Status: F Source: [place] 9:50 AM [facility] Order Comment: Order Date: 04/09/17 Order Info: [id number] - *Hepatic Function Panel Order Info: [id number] - *Lipid Profile CC PCP Comments: 12 hours fasting, may have water. TYPE CODE TESTS RESULT OUT OF RANGE REFERENCE UNITS LAB L501.1500 6.4-8.2 g/dL Normal T PROT 7.7 LAB L501.1800 3.2-5.0 g/dL Normal ALB 3.8 LAB L501.1950 2.2-4.2 g/dL Normal GLOB 3.9 LAB L501.4100 15-37 U/L Normal AST 15 LAB L501.4305 45-117 U/L High ALK P 153 LAB L501.4405 16-61 U/L Low ALT 15 Result Comment: Please note revised ALT reference range effective 2017. LAB L501.4600 0.20-1.00 mg/dL High T BILI 1.20 LAB L501.4700 0.00-0.30 mg/dL Normal D BILI 0.21 Performed By: #### L500.3400 #### [facility] [address] [place], [place], [address] LIPID PROFILE Collected: 10/15/2017 Status: F Source: [place] 9:50 AM [facility] Order Comment: Order Date: 04/09/17 Order Info: [id number] - *Hepatic Function Panel Order Info: [id number] - *Lipid Profile CC PCP Comments: 12 hours fasting, may have water. TYPE CODE TESTS RESULT OUT OF RANGE REFERENCE UNITS LAB L501.4900 200 mg/dL Normal CHOL 163 Result Comment: <200 mg/dL Desirable 200-240 mg/dL Borderline >240 mg/dL High Risk LAB L501.5000 mg/dL Normal TRIG 105 Result Comment: The drugs N-Acetylcysteine and Metamizole may falsely depress this assay. Serum Triglycerides Reference Interval Normal <150 mg/dL Borderline high 150 - 199 mg/dL High 200 - 499 mg/dL Very High > or = 500 mg/dL LAB L501.6400 mg/dL Normal HDL 42 Result Comment: The drugs N-Acetylcysteine and Metamizole may falsely depress this assay. Reference Range HDL <40 mg/dL Low HDL Cholesterol HDL >or= 60 mg/dL High HDL Cholesterol LAB L501.6500 0-130 mg/dL Normal LDL 100 LAB L501.6600 5-40 mg/dL Normal VLDL 21 Performed By: #### L500.4100 #### [facility] [address] [place], [address] HEMOGLOBIN A1C Collected: 10/15/2017 Status: F Source: [place] 9:50 AM [facility] Order Comment: DR. PRADO ORDERED URIC ACID, PSA, A1C. DR. MENESES ORDERED LIVER AND LIPID TYPE CODE TESTS RESULT OUT OF RANGE REFERENCE UNITS LAB L501.9985 4.2-6.3 % Normal HGB A1C 5.4 Performed By: #### L501.9985 #### [facility] [address] [place], [address] RE-EVALUATION - PT (1) Observed: 09/28/2017 Status: F Source: [place] 7:49 AM [facility] [address] [place] [address]. [address] [place] [address] Fax REEVALUATION / MEDICARE RECERTIFICATION PHYSICAL THERAPY MR#: [id number] Acct: [id number] Name: AMAYA OSULLIVAN Rep #: [id number] : 1950 67 From: John Paz DPT Referring DrLuciana: Sunny Henriquez DO Status: REG RCR Insurance: MEDICARE PART A B AARP Sunny Henriquez DO, It has been my pleasure to treat AMAYA OSULLIVAN over the last 12 visits for R TKA. Please see the progress note below for an update on the physical therapy plan of care! Subjective: Pt. reports I am doing pretty well. He reports being 90% better overall. He is to follow up with physician later this date. Pt. is eager to get back to all exercises on own at this point in time. Objective/Function: ROM 0-0-117deg. Pt. reports increased discomfort with end range flexion. Pt. encouraged to increased ROM as tolerated. with strap and with rocking chair. MMT- 5/5 throughout- mild increase in symptoms with knee ext. Pt. is able to negotiate steps with reciprocal pattern without LOB mild increase in symptoms with descending, use of 1 HR. Pt. is able to ambulate unlimited distances but does have increased lateral sway and is methodical with pattern. Pt. is able to ambulate without AD, but does use walking stick on uneven surfaces and outdoors. Pt. reports no pain currently. Plan Plan: Pt. desires to continue on own at this point in time. I stressed to patient importance of increasing motion (maintaining knee ext and progressing flexion as able). Pt. to increase walking routine as tolerated. Pt. consents. Pt. to follow up with physician later this date. Pt. to trial on own at this point in time, but follow up with PT if needed at pt. request. Goals Goal 1:: Pt. to be I with HEP. Goal Time Frame: 8-12 Weeks Goal Progress: Goal Met Goal 2:: Pt. to have increased R knee ROM to 0-0-120deg allowing for increased ability to complete al functional mobility. Goal Time Frame: 4-6 Weeks Goal Progress: Progressing Goal 3:: Pt. to ambulate without AD with normal gait pattern for 1000+ feet with 0-1/10 pain allowing for increased independence in community. Goal Time Frame: 4-6 Weeks Goal Progress: Goal Met Goal 4:: Pt. to have increased RLE strength by 1/2 grade of all effected musculature. Goal Time Frame: 4-6 Weeks Goal Progress: Goal Met Goal 5:: Pt. to negotiate steps with 1 HR with reciprocal pattern with 0-1/10 pain. Goal Time Frame: 6-8 Weeks Goal Progress: Goal Met Goal 6:: Pt. to sleep throughout the night with 0-1/10 pain allowing for increased quality of life. Goal Time Frame: 4-6 Weeks Goal Progress: Goal Met Anticipated Interventions Patient/Client Instruction: Educate patient on: Condition, Plan of Care, Risk Factors, Benefits of Fitness Program For the Purpose of:: To reduce risk of recurrence, To improve safety, To improve health and function, To foster healthy habits, To improve decision making, To facilitate caregiver knowledge, To improve self management, To prevent re-injury, To improve ability to perform tasks related to life management, To improve tolerance to ADL's Therapeutic Exercise to Include: Strength training, Power training, Endurance training, Balance training, Coordination, Agility training, Postural training, Flexibilty training, Gait and locomotor training, Passive ROM, Active ROM For the Purpose of:: To decrease pain, To decrease swelling/inflammation, To increase ROM, To improve nutrient delivery to tissue, To increase oxygenation perfusion, To improve muscle performance and motor function, To improve ability to perform ADL's, To improve ability of physical actions for home/community/work/leisure, To improve gait and locomotor functions, To improve health of tissue, To decrease soft tissue restriction, To increase flexibility/ROM, To improve endurance, To improve balance IF ES: Yes Cryotherapy (ice pack, ice massage): Yes Vasopneumatic device: Yes For the Purpose of:: To decrease pain, To decrease swelling/inflammation, To increase ROM Please do not hesitate to contact me at [phone] by phone or if you have questions or concerns regarding this new plan of care! Sincerely, John Paz <Electronically signed by John Paz DPT> 09/28/17 0749 CC: Benjamin Prado DO; Sunny Henriquez DO CLS Signed For Medicare only, by signing this I certify the plan of care. Physicians Signature Date ORTHOPEDIC VISIT Observed: 09/24/2017 Status: F Source: [place] REPORT 2:39 PM [facility] Orthopaedics AND Sports Medicine [address] [place] [address] OFFICE VISIT Date of Service: 09/24/17 MR#: [id number] Acct: [id number] Name: AMAYA OSULLIVAN Rep #: [id number] : 1950 Provider: Sunny Henriquez DO Age/Sex: 67/M Location: [facility] Status: Signed Intake Intake Visit Reasons: RIGHT KNEE Chief Complaint: Nasal congestion and cough Accompanied by: Is patient in pain?: Yes Allergies acetaminophen [From Percocet] Allergy (Mild, Verified 09/24/17 13:21) hallunications atorvastatin [From Lipitor] Allergy (Mild, Verified 09/24/17 13:21) unknown lovastatin [From Mevacor] Allergy (Mild, Verified 09/24/17 13:21) unknown oxycodone [From Percocet] Allergy (Mild, Verified 09/24/17 13:21) hallunications pravastatin [From Pravachol] Allergy (Mild, Verified 09/24/17 13:21) unknown morphine Allergy (Verified 09/24/17 13:21) Hives hydromorphone [From Dilaudid] Adverse Reaction (Verified 09/24/17 13:21) Itching Medications Colcrys 0.6 mg PO PRN PRN 05/18/13 [History Confirmed 09/24/17] Ezetimibe [Zetia] 10 mg PO DAILY 05/18/13 [History Confirmed 09/24/17] Gemfibrozil [Lopid] 600 mg PO BIDAC 05/18/13 [History Confirmed 09/24/17] Lisinopril [Zestril] 20 mg PO DAILY 05/18/13 [History Confirmed 09/24/17] Niacin SA [Niaspan] 2,000 mg PO QHS 05/18/13 [History Confirmed 09/24/17] Allopurinol [Zyloprim] 300 mg PO DAILY 05/04/17 [History Confirmed 09/24/17] Amlodipine [Norvasc] 5 mg PO DAILY 08/06/17 [History Confirmed 09/24/17] aspirin 325 mg tablet 325 mg PO QDAY 09/16/17 [History Confirmed 09/24/17] [facility] Medical History Arthritis (Chronic) Coronary artery disease (Chronic) Gout (Chronic) Hyperlipidemia (Chronic) Hypertension (Chronic) Myocardial infarction (Inactive) Surgical History History of arthroplasty of right knee (Acute) Carpal tunnel syndrome (Inactive) S/P coronary artery stent placement (Inactive) S/P right knee arthroscopy (Inactive) S/P total knee arthroplasty (Inactive) Trigger finger (Inactive) Family History Father COPD (chronic obstructive pulmonary disease) Mother Cancer Brother Myocardial infarction CVA (cerebral vascular accident) CAD (coronary artery disease) Diabetes Hyperlipidemia Sister COPD (chronic obstructive pulmonary disease) Ovarian cancer Social History Smoking Status: Never smoker HPI RIGHT KNEE: Details: AMAYA OSULLIVAN is a 67 year old M here today s/p right knee TKA DOS 08/17/17. He complains of minimal intermittent anterior knee pain. Minimal swelling. Tingling/numbness laterally and medially. No radiation. ROS Const Reports system reviewed and no additional complaints, except as docu Eyes Reports system reviewed and no additional complaints, except as docu ENT Reports system reviewed and no additional complaints, except as docu Card Reports system reviewed and no additional complaints, except as docu Resp Reports system reviewed and no additional complaints, except as docu GI Reports system reviewed and no additional complaints, except as docu Reports system reviewed and no additional complaints, except as docu Musc Reports joint pain, Reports joint swelling, Reports tingling, Reports numbness Skin/Breast Reports system reviewed and no additional complaints, except as docu Neuro Yes tingling, Yes numbness Psych Reports system reviewed and no additional complaints, except as docu Endo Reports system reviewed and no additional complaints, except as docu Mitch/Lymph Reports system reviewed and no additional complaints, except as docu Aller/Immun Reports system reviewed and no additional complaints, except as docu Ortho Exam Right Knee Swelling: No Homans Sign: No KNEE: Alert and oriented 3 in no acute distress. From an eye contact and affect. Otherwise intact from L1 S1 distributions. He has +2 pulses. Negative Homans no calf pain. Range of motion 0-115. X-rays: Evaluated myself patient-hardware well seated and well placed again centered patella status post press-fit total knee arthroplasty Assessment AND Plan Problems 1. Orthopedic aftercare Z47.89 Plan a/p: Patient will follow up with me in 6 weeks for range of motion check to his right knee at which point time we will get left knee x-rays as he will be 6 months out from that total knee. Any issues return. Patient agrees with plan. Orders Orders: Coding Level of Care Code Global Post Op Diagnoses Orthopedic aftercare Z47.89 09/24/17 1439 <Electronically signed by Sunny Henriquez DO> Date Sunny Henriquez DO Cosigner Signature: Date (if applicable) CC: KNEE 4 OR MORE Observed: 09/24/2017 Status: F Source: [place] VIEWS 1:06 PM [facility] Imaging Services [address] [place] [address] Knee 4 or More Views MR#: [id number] Acct: [id number] Name: AMAYA OSULLIVAN Rep #: [id number] : 1950 M 67 From: Ciara Patel MD PCP: Benjamin Prado DO Status: REG CLI Study: Knee 4 or More Views Date of Exam: 09/24/17 Exam# [id number] Ordering Dr: Sunny Henriquez DO STUDY: X-RAY - RIGHT KNEE REASON FOR EXAM: Male, 67 years old. Postop TECHNIQUE: 4 view(s) of the knee. Weight-bearing COMPARISON: 08/27/2017 FINDINGS: Total knee arthroplasty in anatomic alignment with normal bone interface. Mild effusion. Resorption of previous soft postsurgical soft tissue changes. RAD/Knee 4 or More Views IMPRESSION: Total knee arthroplasty in anatomic alignment with residual effusion. Electronically Signed: Ciara Patel MD at 11:57 EST , Service support , CC: Benjamin Prado DO; Sunny Henriquez DO Manager Game: Signed URGENT CARE VISIT Observed: 09/16/2017 Status: F Source: [place] REPORT 9:52 AM [facility] [address] [place] [address] [address] [place] [address] OFFICE VISIT Date of Service: 09/16/17 MR#: [id number] Acct: [id number] Name: AMAYA OSULLIVAN Rep #: [id number] : 1950 Provider: Iam SY Age/Sex: 67/M Location: [facility] [place] Status: Signed Intake Vital Signs09/16/17 Height 5 ft 7 in 09/16/17 Weight: 205 lb 09/16/17 Body Mass Index (BMI) 32.1 09/16/17 Blood Pressure 134/74 09/16/17 Blood Pressure Location Lt brachial 09/16/17 Blood Pressure Position Sitting Intake Visit Reasons: CONGESTION/URI Chief Complaint: Nasal congestion and cough Allergies acetaminophen [From Percocet] Allergy (Mild, Verified 08/27/17 13:39) hallunications atorvastatin [From Lipitor] Allergy (Mild, Verified 08/27/17 13:39) unknown lovastatin [From Mevacor] Allergy (Mild, Verified 08/27/17 13:39) unknown oxycodone [From Percocet] Allergy (Mild, Verified 08/27/17 13:39) hallunications pravastatin [From Pravachol] Allergy (Mild, Verified 08/27/17 13:39) unknown morphine Allergy (Verified 08/27/17 13:39) Hives hydromorphone [From Dilaudid] Adverse Reaction (Verified 08/27/17 13:39) Itching Medications Colcrys 0.6 mg PO PRN PRN 05/18/13 [History Confirmed 09/16/17] Ezetimibe [Zetia] 10 mg PO DAILY 05/18/13 [History Confirmed 09/16/17] Gemfibrozil [Lopid] 600 mg PO BIDAC 05/18/13 [History Confirmed 09/16/17] Lisinopril [Zestril] 20 mg PO DAILY 05/18/13 [History Confirmed 09/16/17] Niacin SA [Niaspan] 2,000 mg PO QHS 10/10/13 [History Confirmed 09/16/17] Allopurinol [Zyloprim] 300 mg PO DAILY 05/04/17 [History Confirmed 09/16/17] Amlodipine [Norvasc] 5 mg PO DAILY 08/06/17 [History Confirmed 09/16/17] Docusate Sodium [Colace] 100 mg PO BID PRN PRN 7 Days #20 cap 08/19/17 [Rx Confirmed 09/16/17] Enoxaparin [Lovenox] 30 mg SC DAILY@0600 #12 syringe 08/19/17 [Rx Confirmed 09/16/17] ProMETHAzine [Phenergan] 25 mg PO Q4H PRN PRN 5 Days #10 tab 08/19/17 [Rx Confirmed 09/16/17] aspirin 325 mg tablet 325 mg PO QDAY 09/16/17 [History Confirmed 09/16/17] PFSH Medical History Arthritis (Chronic) Coronary artery disease (Chronic) Gout (Chronic) Hyperlipidemia (Chronic) Hypertension (Chronic) Myocardial infarction (Inactive) Surgical History History of arthroplasty of right knee (Acute) Carpal tunnel syndrome (Inactive) S/P coronary artery stent placement (Inactive) S/P right knee arthroscopy (Inactive) S/P total knee arthroplasty (Inactive) Trigger finger (Inactive) Family History Father COPD (chronic obstructive pulmonary disease) Mother Cancer Brother Myocardial infarction CVA (cerebral vascular accident) CAD (coronary artery disease) Diabetes Hyperlipidemia Sister COPD (chronic obstructive pulmonary disease) Ovarian cancer Social History Smoking Status: Never smoker HPI HPI Chief Complaint: Nasal congestion and cough Details: AMAYA OSULLIVAN, is a 67 M who presents to the office today for 3 day history of nasal congestion and cough and sneezing, requesting influenza screen. Patient has no complaints of fever, chills, sweats, rash, chest pain/shortness of breath. He is a non-smoker. No other associated symptoms no other alleviating or aggravating factors. ROS Const Constitutional: No excessive sweating, abnormal sleep pattern, fever(s), night sweats, chills or body ache Eyes Eyes: No change in vision ENT ENT: Positive for nasal congestion; no abnormal hearing, ear pain, ear discharge, ear pressure, hearing loss, post nasal drip, sinus pressure or sore throat Resp Respiratory: Positive for cough; no chest congestion Cardio Cardiology: No excessive sweating, chest pain at rest, chest pain with exertion, shortness of breath, dyspnea on exertion, irregular heart rhythm, generalized swelling or leg pain with exertion Gastro GI: No abdominal pain, change in stool character or change in bowel habits Musc Musculoskeletal: No joint pain, back pain or limited range of motion Skin Skin: No change in hair, sores or rash Neuro Neurology: No abnormal hearing, abnormal speech or abnormal movements Psych Psychiatric: No abnormal sleep pattern Endo Endocrine: No excessive sweating, change in body appearance, cold intolerance or heat intolerance Aller/Imm Allergy/Immunologic: No food intolerance Mitch/Lymp Hematologic/Lymphatic: No easy bruising Exam Const General: cooperative, healthy appearing, no acute distress, comfortable Nutritional Appearance: average body habitus Orientation: alert, awake, oriented x3 HENMT Head: normal to inspection Ears: hearing grossly normal bilaterally, external ears normal, TM's normal bilaterally, EAC's normal Nose: external nose normal, nares normal, septum normal, nasal discharge clear Face and sinus: normal facial exam, sinuses nontender, face symmetric Mouth: oral mucosae normal, lip normal, oropharynx normal, tongue normal Teeth and gingiva: dentition normal, gingiva normal Throat: posterior oropharynx normal, tonsils normal, uvula midline Eyes General: appearance normal, both eyes and all related structures Neck Neck: normal visual inspection, full ROM, no lymphadenopathy, no meningeal signs, supple Neck mass: No Thyroid: thyroid normal Lymphatic: no lymphadenopathy noted Chest Chest palpation AND inspection: normal inspection of the chest Resp Effort AND Inspection: normal respiratory effort, able to speak in complete sentences, cough Quality of cough: dry, symmetric chest movement Auscultation: Bilateral: Clear to Auscultation Cardio Palpation: normal PMI Rate: regular rate Rhythm: regular rhythm Heart Sounds: S1 normal, S2 normal, no gallops, no murmurs, no rubs Pulses: radial pulses present GI Inspection: normal to inspection Palpation: soft, no hepatosplenomegaly Skin General: no rashes or lesions noted Neuro General: alert, awake, oriented x3, gait normal Cognition: normal cognition Speech: speech normal Gait: normal gait Motor: muscle tone normal throughout Sensory Exam: no sensory deficits noted Extrem General: normal to inspection Psych Appearance: grossly normal Mental Status: mental status grossly normal Mood: congruent mood Affect: normal affect Speech and Movement: speech and movement normal Attitude: cooperative Thought Process: normal Thought Content: normal Judgment: judgment good Assessment AND Plan Problems 1. URI (upper respiratory infection) J06.9 Plan Patient aware today's rapid flu test was negative therefore clear fluids, rest, Tylenol Robitussin, as needed for symptomatic relief. Patient refused benzonatate prescription upon offering. Follow-up with PCP in 5-7 days should symptoms not improve, sooner should symptoms worsen or any other concerns develop. Patient states knowledge and understanding all the above. This note was generated with [employer] software. It may contain incorrect words, spelling, and punctuation that were not noted in checking the note before signing. Coding Level of Care Code Off vis,est,level 3 Diagnoses URI (upper respiratory infection) J06.9 09/16/17 0952 <Electronically signed by Iam SY> Date [facility] Signature: Date (if applicable) CC: ORTHOPEDIC VISIT Observed: 08/29/2017 Status: F Source: [place] REPORT 8:46 AM [facility] Orthopaedics AND Sports Medicine [address] [place] [address] OFFICE VISIT Date of Service: 08/27/17 MR#: [id number] Acct: [id number] Name: AMAYA OSULLIVAN Konrad Rep #: [id number] : 1950 Provider: Sunny Henriquez DO Age/Sex: 67/M Location: [facility] [place] Status: Signed Intake Intake Visit Reasons: RIGHT KNEE Accompanied by: Is patient in pain?: Yes Pain scale (1-10): 7 Allergies acetaminophen [From Percocet] Allergy (Mild, Verified 08/27/17 13:39) hallunications atorvastatin [From Lipitor] Allergy (Mild, Verified 08/27/17 13:39) unknown lovastatin [From Mevacor] Allergy (Mild, Verified 08/27/17 13:39) unknown oxycodone [From Percocet] Allergy (Mild, Verified 08/27/17 13:39) hallunications pravastatin [From Pravachol] Allergy (Mild, Verified 08/27/17 13:39) unknown morphine Allergy (Verified 08/27/17 13:39) Hives hydromorphone [From Dilaudid] Adverse Reaction (Verified 08/27/17 13:39) Itching Medications Colcrys 0.6 mg PO PRN PRN 05/18/13 [History Confirmed 08/27/17] Ezetimibe [Zetia] 10 mg PO DAILY 05/18/13 [History Confirmed 08/27/17] Gemfibrozil [Lopid] 600 mg PO BIDAC 05/18/13 [History Confirmed 08/27/17] Lisinopril [Zestril] 20 mg PO DAILY 05/18/13 [History Confirmed 08/27/17] Niacin SA [Niaspan] 2,000 mg PO QHS 05/18/13 [History Confirmed 08/27/17] Allopurinol [Zyloprim] 300 mg PO DAILY 05/04/17 [History Confirmed 08/27/17] Amlodipine [Norvasc] 5 mg PO DAILY 08/06/17 [History Confirmed 08/27/17] Docusate Sodium [Colace] 100 mg PO BID PRN PRN 7 Days #20 cap 08/19/17 [Rx Confirmed 08/27/17] Enoxaparin [Lovenox] 30 mg SC DAILY@0600 #12 syringe 08/19/17 [Rx Confirmed 08/27/17] ProMETHAzine [Phenergan] 25 mg PO Q4H PRN PRN 5 Days #10 tab 08/19/17 [Rx Confirmed 08/27/17] PFSH Medical History Arthritis (Chronic) Coronary artery disease (Chronic) Gout (Chronic) Hyperlipidemia (Chronic) Hypertension (Chronic) Myocardial infarction (Inactive) Surgical History History of arthroplasty of right knee (Acute) Carpal tunnel syndrome (Inactive) S/P coronary artery stent placement (Inactive) S/P right knee arthroscopy (Inactive) S/P total knee arthroplasty (Inactive) Trigger finger (Inactive) Family History Father COPD (chronic obstructive pulmonary disease) Mother Cancer Brother Myocardial infarction CVA (cerebral vascular accident) CAD (coronary artery disease) Diabetes Hyperlipidemia Sister COPD (chronic obstructive pulmonary disease) Ovarian cancer Social History Smoking Status: Never smoker HPI RIGHT KNEE: Details: AMAYA OSULLIVAN is a 67 year old M here today s/p right knee replacement DOS 08/17/17. He complains of anterior knee pain that radiates down his barragan. He denies calf pain. Patient has been going to PT and PT recommended patient follow-up today. The anterior knee is red and very warm to the touch. He has checked his temperature which has reached to 99.4. He does have swelling at the knee and ankle. No tingling/numbness. He continues to take [place] for pain which does help. He ambulates today with a walker. ROS Const Reports system reviewed and no additional complaints, except as docu Eyes Reports system reviewed and no additional complaints, except as docu ENT Reports system reviewed and no additional complaints, except as docu Card Reports system reviewed and no additional complaints, except as docu Resp Reports system reviewed and no additional complaints, except as docu GI Reports system reviewed and no additional complaints, except as docu Reports system reviewed and no additional complaints, except as docu Musc Reports joint pain, Reports joint swelling Skin/Breast Reports system reviewed and no additional complaints, except as docu Neuro Yes system reviewed and no additional complaints, except as docu Psych Reports system reviewed and no additional complaints, except as docu Endo Reports system reviewed and no additional complaints, except as docu Mitch/Lymph Reports system reviewed and no additional complaints, except as docu Aller/Immun Reports system reviewed and no additional complaints, except as docu Ortho Exam Right Knee Skin/Wound: Yes CDI Contralateral Normal: Yes Swelling: Yes Homans Sign: No 1+: Effusion Quad Atrophy: No Popliteal Adenopathy: No KNEE: Distally neurovascular intact. Incision clean dry and intact. No signs of erythema. Simple ecchymosis. Range of motion 0-90. Assessment AND Plan Problems 1. Orthopedic aftercare Z47.89 Plan Assessment: After orthopedic status post right total knee arthroplasty. Doing well. Plan: At this point I would have the patient stop his Lovenox think is probably contributing to it he can just use some aspirin for the next couple of weeks. Continue work on aggressive range of motion. There is any new changes to return. We will see how he does once he is finished or stops taking his Lovenox. By now simple postoperative changes in my opinion. But will follow. Coding Level of Care Code Global Post Op Diagnoses Orthopedic aftercare Z47.89 08/29/17 0846 <Electronically signed by Sunny Henriquez DO> Date Sunny Henriquez DO Cosigner Signature: Date (if applicable) CC: INITAL EVALUATION (1) Observed: 08/26/2017 Status: F Source: [place] - PT 12:49 PM [facility] [place] [address] [place] [address]. [address] [place] [address] Fax REHABILITATION SERVICES INITIAL EVALUATION MR#: [id number] Acct: [id number] Name: AMAYA OSULLIVAN Rep #: [id number] : 1950 67 From: John Paz DPT Referring Dr.: Sunny Henriquez DO Status: REG RCR Insurance: MEDICARE PART A B AARP Patient's Visit Information AMAYA OSULLIVAN is a 67 year old M referred to Physical Therapy by Sunny Henriquez DO DR.MTODD with a diagnosis of R TKA. Date of Evaluation: 08/25/17 Physical Therapist: John Paz - Visit Plan Frequency: 2-3x /Week Duration: 12 weeks Plan: Start with quad control, R knee ROM, pain control modalities including ice/vaso, glute strengthening and HS strengthening. Progress to functional strengthening and gait progression. - Subjective Subjective: Pt. is here today for his initial evaluation with diagnosis of R TKA. Pt. has his surgery on 08/17/17. Pt. is known to this PT as he had his L knee replaced last year. Pt. reports that he is doing okay and is doing his HEP as prescribed by physician. He lives at home with his . Pt. reports having increased R knee pain, currently 03/18. pt. has incerased pain with attempts to bend and straighten his knee. Pt. reports difficulty with walking, but has been getting up every hour to walk in the house. Pt. is also icing as prescribed. He denies N/T in either LE. Pt. does have pain in upper thigh close to where torniquete was placed. Prior to surgery pt. was ambulating without issues, but was having some R knee pain limiting overall mobility. Pt. is hopeful to get back to all recreational activities without issues. - Pain R knee Pain Intensity (Out of 10): 8 Pain Intensity Range: 5, 9 - Objective POSTURE: Pt. has increased L wt. shift in stance, flexed posture with lacking R TKE during stance. Pt. uses FWW for stability. Pt. is able to increase posture, but has difficulty achieving TKE on RLE. PALPATION: Pt. has increased redness around patella and close to incision. Pt. has no seeping/drainage and incision does appear to be intact (no signs of dehiscence), but has increased redness. His knee is warm to the touch and brawny like edema. Pt. has negative homans signs bilaterally and is wearing bilateral knee TEDs. NEUROLOGICAL: Pt. has normal sensation to light and sharp touch of bilateral LEs. Pt. has bilateral 2+ achilles DTR. Pt. is able to rise on heels and toes without visible weakness, but does use AD for stability. ROM: L knee 0-0-124deg. R knee 0-10-73deg in supine. Pt. has increased pain with end ranges of motions. Pt. has normal bilateral hip ROM, tight HS bilaterally. MMT- LLE- ankle 5/5 throughout; knee- ext 5-/5, flexion 5-/5; hip- flexion 4+/5, and 4+/5, ext 4+/5. RLE- ankle 5/5 throughout; knee- ext 3+/5 (no over pressure added), flexion 3+/5; hip- flexion 3/5, abd 4-/5, ext 4/5. GAIT: Pt. was able to ambulate 259ft. with FWW, but has increased use of AD, decreased TKE on R side, decreased R step length and lacks heel strike with initial contact. STAIRS: Pt. was able to negotiate 5 steps with 2HR with step to pattern laoding LLE throughout. - Goals Goal 1:: Pt. to be I with HEP. Goal Time Frame: 8-12 Weeks Goal 2:: Pt. to have increased R knee ROM to 0-0-120deg allowing for increased ability to complete al functional mobility. Goal Time Frame: 4-6 Weeks Goal 3:: Pt. to ambulate without AD with normal gait pattern for 1000+ feet with 0-1/10 pain allowing for increased independence in community. Goal Time Frame: 4-6 Weeks Goal 4:: Pt. to have increased RLE strength by 1/2 grade of all effected musculature. Goal Time Frame: 4-6 Weeks Goal 5:: Pt. to negotiate steps with 1 HR with reciprocal pattern with 0-1/10 pain. Goal Time Frame: 6-8 Weeks Goal 6:: Pt. to sleep throughout the night with 0-1/10 pain allowing for increased quality of life. Goal Time Frame: 4-6 Weeks - Rehabilitation Potential Physical Therapy Diagnosis: Pt. has hypombility, difficulty walking, RLE weakness and increased pain S/P R total knee arthroplasty. Pt. does have increased redness at his anterior knee and was pretty sensitive to light touch. He had negative homans sign. I did recommend that he follow up with his physician soon to rule out an infection. I went and talk to his physician office and was able to get him in this week. Rehabilitation Potential: Excellent - Anticipated Interventions Patient/Client Instruction: Educate patient on: Condition, Plan of Care, Risk Factors, Benefits of Fitness Program For the Purpose of:: To reduce risk of recurrence, To improve safety, To improve health and function, To foster healthy habits, To improve decision making, To facilitate caregiver knowledge, To improve self management, To prevent re-injury, To improve ability to perform tasks related to life management, To improve tolerance to ADL's Therapeutic Exercise to Include: Strength training, Power training, Endurance training, Balance training, Coordination, Agility training, Postural training, Flexibilty training, Gait and locomotor training, Passive ROM, Active ROM For the Purpose of:: To decrease pain, To decrease swelling/inflammation, To increase ROM, To improve nutrient delivery to tissue, To increase oxygenation perfusion, To improve muscle performance and motor function, To improve ability to perform ADL's, To improve ability of physical actions for home/community/work/leisure, To improve gait and locomotor functions, To improve health of tissue, To decrease soft tissue restriction, To increase flexibility/ROM, To improve endurance, To improve balance IF ES: Yes Cryotherapy (ice pack, ice massage): Yes Vasopneumatic device: Yes For the Purpose of:: To decrease pain, To decrease swelling/inflammation, To increase ROM Thank you for the opportunity to evaluate your patient. For Medicare and Medicare HMO plans, please review the plan of care and approve it. It will need to be FAXED BACK to us at [phone] for Medicare purposes. Please let me know if there are questions or concerns regarding this plan of care. Physician Signature: Date: <Electronically signed by John Paz DPT> 08/26/17 1249 CC: Benjamin Prado DO; Sunny Henriquez DO CLS Signed For Medicare only, by signing this I certify the plan of care. Physicians Signature Date DISCHARGE SUMMARY Observed: 08/19/2017 Status: F Source: [place] 7:40 AM [facility] [place] [place] Medical Records Department [address] [place] [address] Discharge Summary 08/19/17 0739 MR#: [id number] Acct: [id number] Name: AMAYA OSULLIVAN Rep #: [id number] : 1950 66 From: Sunny Henriquez DO PCP: Benjamin Prado DO Status: ADM IN Y Location: WI3 [id number] Discharge Summary Date of Admission: 08/17/17 Date of Discharge: 08/19/17 Summary: 66-year-old male postop day 2 status post right total knee arthroplasty. No major issues overnight. Patient admitted to floor for 24 hours of IV antibiotics appropriate IV and p.o. pain medication DVT prophylaxis to include SCDs teds and 30 mg subcu Lovenox daily. Patient at this time is been amatory physical therapy. Patient tolerated regular diet. Pain is controlled p.o. pain medication. Patient be safely discharged home later today when meets criteria start outpatient physical therapy as he did with his left total knee arthroplasty. Assessment: Aftercare orthopedics status post right total knee arthroplasty for bilateral osteoarthritis. Plan: Discharge home. Medications have been sent electronically. Patient will start outpatient physical therapy. Continue with DVT prophylaxis to include early aggressive range of motion, VANESSA hose and 30 mg subcu Lovenox for the next 12 days. Patient will follow-up with me in 2 weeks. Any major issues return. Patient may shower at this time. 08/19/17 0740 <Electronically signed by Sunny Henriquez DO> Date Sunny Henriquez DO Cosigner Signature (if applicable): Date CC: Benjamin Prado DO; Sunny Henriquez DO Signed DISCHARGE INSTRUCTION Observed: 08/19/2017 Status: F Source: [place] 7:33 AM [facility] [place] Medical Records Department [address] [place] [address] Instructions for Home/Discharge Instructions 08/19/17 0731 MR#: [id number] Acct: [id number] Name: AMAYA OSULLIVAN Konrad Rep #: [id number] : 1950 66 From: Sunny Henriquez DO PCP: Benjamin Prado DO Status: ADM IN Discharge Activity: Return to Normal Activity, May not drive while taking narcotic pain medications., May Shower, Use Walker May shower in (days): 1 May resume sexual activity in: 6 weeks Ice area for (Minutes): 20 Weight Bearing Status: Weight bearing as tolerated Elevate: Right Leg Call your doctor if your incision/area has: Continuous Slow Oozing, Sudden Increased Bleeding, Increased Pain/ Swelling, Increased Redness, Foul Smelling Discharge, Swelling at the incision site Call your doctor if you observe: Fever of 101 or Higher, Coldness, Increased Pain, Numbness or Tingling, Change in Color, Inability to urinate, Inability to have a bowel movement, Using more than one pad per hour, Shortness of breath, Dizziness, Fainting spells, Swelling in the ankles, Chest pain, Prolonged hiccoughing, Increased palpitations (irregular heartbeat), Calf discomfort, Uncontrolled pain Suture Line Care: Avoid Pulling/Pushing, Avoid Pinching/Bending Change Dressing in (Days):: 2 Remove Dressing in (days):: 2 Cleanse incision/area with: Soap AND Water Additional Dressing/Incision Instructions:: Keep wound covered at all time. May shower. Do not touch wound unless you have wash her hands. Allergies/Adverse Reactions: Allergies atorvastatin [From Lipitor] Allergy (Mild, Verified 08/06/17 10:07) unknown lovastatin [From Mevacor] Allergy (Mild, Verified 08/06/17 10:07) unknown pravastatin [From Pravachol] Allergy (Mild, Verified 08/06/17 10:07) unknown morphine Allergy (Verified 08/06/17 10:07) Hives hydromorphone [From Dilaudid] Adverse Reaction (Verified 08/06/17 10:07) Itching Medications to take at Discharge Aspirin 325 mg PO DAILY@0800 05/18/13 Colcrys 0.6 mg PO PRN PRN 05/18/13 Ezetimibe [Zetia] 10 mg PO DAILY 05/18/13 Gemfibrozil [Lopid] 600 mg PO BIDAC 05/18/13 Lisinopril [Zestril] 20 mg PO DAILY 05/18/13 Niacin SA [Niaspan] 2,000 mg PO QHS 05/18/13 Acetaminophen [Tylenol Extra Strength] 500 mg PO Q6H PRN PRN 05/04/17 Allopurinol [Zyloprim] 300 mg PO DAILY 05/04/17 Meloxicam [Mobic] 15 mg PO DAILY 05/04/17 Amlodipine [Norvasc] 5 mg PO DAILY 08/06/17 Docusate Sodium [Colace] 100 mg PO BID PRN PRN 7 Days #20 cap 08/19/17 Oxycodone HCl/Acetaminophen [Percocet 5/325] 1 - 2 tablet PO Q4H PRN PRN 5 Days #60 tablet 08/19/17 ProMETHAzine [Phenergan] 25 mg PO Q4H PRN PRN 5 Days #10 tab 08/19/17 The following prescriptions were given: Oxycodone HCl/Acetaminophen [Percocet 5/325] 1 - 2 tablet PO Q4H PRN PRN 5 Days #60 tablet PRN Reason: Pain ProMETHAzine [Phenergan] 25 mg PO Q4H PRN PRN 5 Days #10 tab PRN Reason: Nausea Docusate Sodium [Colace] 100 mg PO BID PRN PRN 7 Days #20 cap PRN Reason: Constipation Primary Care Physician: Benjamin Prado DO [Primary Care Provider] - Please Follow Up With: Sunny Henriquez DO When: call [facility] for appt for 2 weeks Proposed Discharge Date: 08/19/17 08/19/17 0733 <Electronically signed by Sunny Henriquez DO> Date Sunny Henriquez DO CC: Benjamin Prado DO BASIC METABOLIC Collected: 08/19/2017 Status: F Source: [place] PROFILE ([facility]) 6:04 AM [facility] [place] TYPE CODE TESTS RESULT OUT OF RANGE REFERENCE UNITS LAB L501.0100 70-110 mg/dL High GLU 125 Result Comment: Fasting Glucose result from 110 to <126 mg/dL suggests IMPAIRED HOMEOSTASIS per A.D.A. criteria. LAB L501.1000 7-18 mg/dL Normal BUN 15 LAB L501.1100 0.70-1.30 mg/dL Normal CREAT,SERUM 1.09 Result Comment: The validity of the calculated GFR AND GFRAA in patients over 70 years has not been determined. Clinical correlation is essential. LAB L501.1110 >60 mL/min Normal EST GFR 71 Result Comment: Non- GFR Calc LAB L501.1115 >60 mL/min Normal EST GFR - AA 86 Result Comment: GFR Calc LAB L501.1255 ml/min Normal Estimated CRCL 58.53 LAB L501.1300 10-20 RATIO Normal BUN/CRE 13.8 LAB L501.2200 8.5-10 mg/dL Normal .1 CA 9.3 LAB L501.5300 136-14 mmol/L Low 5 NA 134 LAB L501.5600 3.5-5. mmol/L Normal 1 K 3.8 LAB L501.5900 98-107 mmol/L Normal CL 99 LAB L501.6100 21.0-3 mmol/L Normal 2.0 CO2 26.0 LAB L501.6200 5-15 Normal GAP 9 Performed By: #### L500.2500 #### [facility] [address] [place], [place], [id number] CBC-COMPLETE BLOOD CNT Collected: 08/19/2017 Status: F Source: [place] NO DIFF 6:04 AM [facility] [place] TYPE CODE TESTS RESULT OUT OF RANGE REFERENCE UNITS LAB L100.1000 4.4-11.0 K/mm3 High WBC 12.0 LAB L100.1200 4.6-6.2 M/mm3 Low RBC 3.96 LAB L100.1300 13.0-16.5 g/dl Low HGB 11.9 LAB L100.1400 40-54 % Low HCT 35.5 LAB L100.1500 80-94 fL Normal MCV 89.6 LAB L100.1600 27.0-32.0 pg Normal MCH 30.1 LAB L100.1700 32-36 g/gl Normal MCHC 33.5 LAB L100.1810 11.6-14.6 % High RDW CV 15.0 LAB L100.1820 35.1-43.9 fl High RDW SD 48.7 LAB L100.1900 150-450 K/mm3 Normal PLT 170 LAB L100.2000 6.2-12.0 fl Normal MPV 10.0 Performed By: #### L100.0500 #### [facility] [address] [place], [place], [address] CBC-COMPLETE BLOOD CNT Collected: 08/18/2017 Status: F Source: [place] NO DIFF 5:44 AM [facility] [place] TYPE CODE TESTS RESULT OUT OF RANGE REFERENCE UNITS LAB L100.1000 4.4-11.0 K/mm3 Normal WBC 10.1 LAB L100.1200 4.6-6.2 M/mm3 Low RBC 3.65 LAB L100.1300 13.0-16.5 g/dl Low HGB 11.2 LAB L100.1400 40-54 % Low HCT 33.2 LAB L100.1500 80-94 fL Normal MCV 91.0 LAB L100.1600 27.0-32.0 pg Normal MCH 30.7 LAB L100.1700 32-36 g/gl Normal MCHC 33.7 LAB L100.1810 11.6-14.6 % High RDW CV 15.4 LAB L100.1820 35.1-43.9 fl High RDW SD 49.5 LAB L100.1900 150-450 K/mm3 Low PLT 148 LAB L100.2000 6.2-12.0 fl Normal MPV 10.3 Performed By: #### L100.0500 #### [facility] [address] [place], [address] BASIC METABOLIC Collected: 08/18/2017 Status: F Source: [place] PROFILE ([facility]) 5:44 AM [facility] [place] [place] TYPE CODE TESTS RESULT OUT OF RANGE REFERENCE UNITS LAB L501.0100 70-110 mg/dL High GLU 127 Result Comment: Fasting Glucose result greater than or equal to 126 mg/dL suggests DIABETES MELLITUS per A.D.A. criteria. LAB L501.1000 7-18 mg/dL Normal BUN 18 LAB L501.1100 0.70-1.30 mg/dL High CREAT,SERUM 1.35 Result Comment: The validity of the calculated GFR AND GFRAA in patients over 70 years has not been determined. Clinical correlation is essential. LAB L501.1110 >60 mL/min Low EST GFR 56 Result Comment: Non- GFR Calc LAB L501.1115 >60 mL/min Normal EST GFR - AA 67 Result Comment: GFR Calc LAB L501.1255 ml/min Normal Estimated CRCL 47.26 LAB L501.1300 10-20 RATIO Normal BUN/CRE 13.3 LAB L501.2200 8.5-10 mg/dL Normal .1 CA 8.6 LAB L501.5300 136-14 mmol/L Normal 5 NA 136 LAB L501.5600 3.5-5. mmol/L Normal 1 K 4.1 LAB L501.5900 98-107 mmol/L Normal CL 102 LAB L501.6100 21.0-3 mmol/L Normal 2.0 CO2 25.0 LAB L501.6200 5-15 Normal GAP 9 Performed By: #### L500.2500 #### [facility] [address] [place], [address] OPERATIVE REPORT Observed: 08/17/2017 Status: F Source: [place] 12:12 PM [facility] [place] Medical Records Department [address] [place] [address] Operative Report 08/17/17 1207 MR#: [id number] Acct: [id number] Name: AMAYA OSULLIVAN Rep #: [id number] : 1950 66 From: Sunny Henriquez DO PCP: Benjamin Prado DO Status: ADM IN Y Location: [facility] [id number]-[id number] Report of Operation Date of Procedure: 08/17/17 Pre-Operative Diagnosis: right knee osteoarthritis Post-Operative Diagnosis: Same as above Surgery/Procedure Performed:: Right total knee arthroplasty using the Clear [employer] system Description of Surgical Findings:: 66-year-old male with bilateral osteoarthritis status post left total knee arthroplasty requested right total knee arthroplasty. Patient failed conservative measures to include NSAIDs and modifications physical therapy and injections. Patient felt his activities of daily living continue to be difficult due to his right knee pain. Having failed conservative measures patient was counseled and consented for the aforementioned procedure. Patient was met in the holding area where his right lower extremity was marked and identified by the with surgeon. Taken to the operating room in satisfactory condition with somewhat to place to identify patient operative procedure and limb. Patient received 2 g Ancef and 1 g of TXA. He underwent a successful spinal anesthesia and then had a well- placed tourniquet the right proximal thigh. He was then prepped and draped in usual fashion. Right lower extremity was elevated Esmarch used for exsanguination and tourniquet was increased to 250 mmHg for roughly 60 minutes. Patient had a standard midline incision made 2 fingerbreadths above the patella down to the tibial tubercle. He then underwent a standard medial parapatellar approach. Patient had a large return effusion as expected. Patient had global tricompartmental arthrosis. At that point time standard anterior fat pad resection was undertaken and a posterior medial release. We then placed our reamer guide just above the PCL placed our intramedullary guide for our distal femoral cut. We did 6 of valgus and an 8 mm resection. This was done using standard technique. We subsequently sized up to a size 3 femur. Standard cutting block was placed and the cuts were performed using standard technique. We then turned our attention to the tibia tibial guide was placed using standard technique for a CR component. We took off 4 mm from the medial side. This was done using standard technique. Popliteus and PCL were preserved. At that point time remnant menisci were removed and the posterior medial and posterior lateral corners were cauterized. Trial components were placed to include a 3 femur and a 3 tibial tray and a 9 mm spacer which gave us good mechanical alignment of both 0 30 and 90 of varus valgus load. We had no flexion extension gaps. Trial femur was removed and the tibia was then prepared for a press- fit tibial component. Keel holes been placed for the femoral component as well. We then turned our attention to the patella. Patella measured roughly 35 in overall diameter. It was 22 mm in overall thickness we took off 10. Again a 35-sized button was prepared using standard technique. Wound was then copiously irrigated remove the excess debris and any synovitis. Components then were brought from the back table tibial press-fit component was then impacted again a size 3. 3 femoral component was impacted again press-fit. In the 35 patellar button seated. With excellent patellar tracking no lateral release was needed. The wounds then copious irrigated and we tried retrial. I elected to go up to a 11 mm CS Brenda. Final CS Brenda was impacted. With excellent flexion-extension gaps and stability. His wound was then copiously irrigated and he was injected with roughly 60 cc of the Hailey cocktail around the soft tissues. Wound was then closed using #1 Vicryl in [id number] technique. 2-0 Vicryl running subicular Monocryl. Patient was then dressed with Xeroform 4 x 4's ABDs and compressive wrap from his toes up. Chart was let down during final closure of roughly 60 minutes. Please note the Dermabond was applied to the incisional site. I was scrubbed and available time during our procedure. There is no drains or complications. Implants included the Liz triathlon press-fit 3 femur 3 tibia and a 35 patella button with a 11 mm CS Brenda. She will be admitted to floor for 24 hours of IV antibiotics appropriate IV and p.o. pain medication and DVT prophylaxis to include early aggressive range of motion SCDs teds and 30 mg subcu Lovenox next 14 days. baby nurse: Pavan Matthew Type of Anesthesia:: Spinal Specimen's removed: Bone cuts Estimated Blood Loss (mL): 50 Grafts/Implants Used: Striker triathlon press-fit 3, 3, 11 CS, 35 patella button - Complications None - Admit VTE Documentation VTE Present on Admission: No VTE Mechan Device Prophylaxis: SCD's, Knee High VANESSA Hose VTE Pharm Prophylaxis ordered?: Yes 08/17/17 1212 <Electronically signed by Sunny Henriquez DO> Date Sunny Henriquez DO CC: Benjamin Prado DO; Sunny Henriquez DO Signed KNEE 1 OR 2 VIEWS Observed: 08/17/2017 Status: F Source: [place] 9:34 AM [facility] [place] [place] Imaging Services [address] [place] [id number] Knee 1 or 2 Views MR#: [id number] Acct: [id number] Name: AMAYA OSULLIVAN Rep #: [id number] : 1950 M 66 From: Taurus Davis MD PCP: Benjamin Prado DO Status: ADM IN Study: Knee 1 or 2 Views Date of Exam: 08/17/17 Exam# [id number] Ordering Dr: Sunny Henriquez DO STUDY: X-RAY - RIGHT KNEE REASON FOR EXAM: Male, 66 years old. Total knee replacement. TECHNIQUE: AP and lateral view(s) of the knee. COMPARISON: Comparison is made with prior study dated April 08, 2017. FINDINGS: Normal visualized distal femur. Normal visualized proximal tibia and fibula. Normal proximal tibiofibular articulation. The patient is status post total knee replacement. There is good alignment. Postoperative soft tissue changes. RAD/Knee 1 or 2 Views IMPRESSION: Status post total knee replacement. There is good alignment. Electronically Signed: Taurus Davis MD at 13:06 EST Tel [phone], Service support , CC: Benjamin Prado DO; Sunny Henriquez DO Manager Game: Signed TOTAL KNEE REPLACEMENT Observed: 08/17/2017 Status: F Source: [place] 12:00 AM [facility] [place] Patient: AMAYA OSULLIVAN : 1950 (66/M) Acct Num: [id number] Phys: Sunny Henriquez DO Unit Num: [id number] Loc: MS3 [id number] Specimen: [id number] Received: 08/17/171421 Spec Type: TOTAL KNEE TISSUES TISSUES: Knee, NOS GROSS DESCRIPTION Received is one container designated bone and soft tissue right knee. The specimen consists of multiple fragments of ma-yellow bone measuring in aggregate 11 x 8 x 3 cm. Also in the specimen container are multiple fragments of yellow-white soft tissue measuring in aggregate 8 x 5 x 3 cm. A number of bony fragments contain articular surfaces consistent with tibial plateau and femoral condyle and displaying prominent osteophyte formation, eburnation, and bone erosion. Counseling Aide sections are submitted in two cassettes as follows : 1 - soft tissue, 2 - bone after decalcification. / SJ:suhas 08/17/17 TC:5 CPT: 92612, 32861 HEADER OPERATION: Total knee replacement PRE-OP DIAGNOSIS: Osteoarthritis and chronic pain of right knee TISSUE SUBMITTED: Right knee bone and soft tissue MICROSCOPIC DESCRIPTION Slides are reviewed. MICROSCOPIC DIAGNOSIS Bone and soft tissue of right knee, total knee resection: Severe degenerative joint disease. AM:suhas 08/23/17 Signed Salomón Rhonda 08/23/17 <signature on file> Performed By: #### PKNEE #### [facility] [address] [place], [address] ORTHOPEDIC VISIT Observed: 08/08/2017 Status: F Source: [place] REPORT 11:09 AM [facility] [address] [place] [address] 5 [place] [address] OFFICE VISIT Date of Service: 08/04/17 MR#: [id number] Acct: [id number] Name: AMAYA OSULLIVAN Rep #: [id number] : 1950 Provider: Sunny Henriquez DO Age/Sex: 66/M Location: [facility] [place] [place] Status: Signed Intake Intake Visit Reasons: RIGHT KNEE Accompanied by: Is patient in pain?: Yes Pain scale (1-10): 8 Allergies atorvastatin [From Lipitor] Allergy (Mild, Verified 08/06/17 10:07) unknown lovastatin [From Mevacor] Allergy (Mild, Verified 08/06/17 10:07) unknown pravastatin [From Pravachol] Allergy (Mild, Verified 08/06/17 10:07) unknown morphine Allergy (Verified 08/06/17 10:07) Hives hydromorphone [From Dilaudid] Adverse Reaction (Verified 08/06/17 10:07) Itching Medications Aspirin 325 mg PO DAILY@0800 05/18/13 [History Confirmed 08/06/17] Colcrys 0.6 mg PO PRN PRN 05/18/13 [History Confirmed 08/06/17] Ezetimibe [Zetia] 10 mg PO DAILY 05/18/13 [History Confirmed 08/06/17] Gemfibrozil [Lopid] 600 mg PO BIDAC 05/18/13 [History Confirmed 08/06/17] Lisinopril [Zestril] 20 mg PO DAILY 05/18/13 [History Confirmed 08/06/17] Niacin SA [Niaspan] 2,000 mg PO QHS 05/18/13 [History Confirmed 08/06/17] Acetaminophen [Tylenol Extra Strength] 500 mg PO Q6H PRN PRN 05/04/17 [History Confirmed 08/06/17] Allopurinol [Zyloprim] 300 mg PO DAILY 05/04/17 [History Confirmed 08/06/17] Meloxicam [Mobic] 15 mg PO DAILY 05/04/17 [History Confirmed 08/06/17] Amlodipine [Norvasc] 5 mg PO DAILY 08/06/17 [History Confirmed 08/06/17] [facility] Medical History Osteoarthritis of knees, bilateral (Acute) Arthritis (Chronic) Coronary artery disease (Chronic) Gout (Chronic) Hyperlipidemia (Chronic) Hypertension (Chronic) Myocardial infarction (Inactive) Surgical History Carpal tunnel syndrome (Inactive) S/P coronary artery stent placement (Inactive) S/P right knee arthroscopy (Inactive) S/P total knee arthroplasty (Inactive) Trigger finger (Inactive) Family History Father COPD (chronic obstructive pulmonary disease) Mother Cancer Brother Myocardial infarction CVA (cerebral vascular accident) CAD (coronary artery disease) Diabetes Hyperlipidemia Sister COPD (chronic obstructive pulmonary disease) Ovarian cancer Social History Smoking Status: Never smoker HPI RIGHT KNEE: Details: AMAYA OSULLIVAN is a 66 year old M here today for increased right knee pain. He states that he has sharp locking pain with uneven surfaces and it aches all day long. Stair are difficult, though since the left knee TKA has improved the function and pain of left knee he can use that one more with stairs than before. He is ambulating with no assistive device today. He has some lateral numbness on the left but none on the right. ROS Const Reports system reviewed and no additional complaints, except as docu Eyes Reports system reviewed and no additional complaints, except as docu ENT Reports system reviewed and no additional complaints, except as docu Card Reports system reviewed and no additional complaints, except as docu Resp Reports system reviewed and no additional complaints, except as docu GI Reports system reviewed and no additional complaints, except as docu Musc Reports joint pain, Reports limited joint movement, Reports stiffness, Reports abnormal walking Skin/Breast Reports system reviewed and no additional complaints, except as docu Neuro Yes system reviewed and no additional complaints, except as docu, Yes abnormal walking Psych Reports system reviewed and no additional complaints, except as docu Endo Reports system reviewed and no additional complaints, except as docu Ortho Exam Right Knee Contralateral Normal: Yes Swelling: Yes Homans Sign: No 1+: Effusion Knee ROM: Yes ROM-Extension -20 to 0, Yes ROM-Flexion 0-140 (125) Quad Atrophy: No Examination: Med jt line tenderness, Lat jt line tenderness, Pain with flexion, Pain with extension, Crepitus, Duck Walk Stability: NML: Anterior Drawer, NML: Perla, NML: Posterior Drawer, NML: Valgus 0, NML: Valgus 30, NML: Varus 0, NML: Varus 30, NML: Dial 90, NML: Dial 30 Popliteal Adenopathy: No Patella Translation: 1 Apprehension with Lateral Translation: No Patellar Tilt Normal: Yes Patella Grind: Yes KNEE: Patient is alert and oriented 3 no distress with eye contact affect. Otherwise intact from L1 S1 distributions. He has +2 pulses. His right knee examination shows varus deformity tenderness palpation across the medial lateral joint line. Positive Apley's and Ilana's maneuver. Compression pain with patellofemoral joint compression no adenopathy. Range of motion 0-125 with pain. Ligamentously stable. General: well developed, well nourished in no acute distress. Head: normocephalic and atraumatic Pulses: pulses normal in all 4 extremities. Neurologic: no focal deficits, cranial nerves II-XII grossly intact with normal sensation, reflexed, coordination, muscle strength and tone. Axillary Nodes: no significant adenopathy. Psych: alert and cooperative, normal mood and affect, normal attention span and concentration. Heart regular with S1-S2 lungs clear to auscultation bilaterally abdomen soft nontender nondistended. In no adenopathy. X-rays of the knees had previously performed shows tricompartmental arthrosis greatest cross patellofemoral joint and medial compartment. Left Knee Patella Translation: 1 Assessment AND Plan Problems 1. Primary osteoarthritis of both knees M17.0; M17.0 2. Chronic pain of right knee M25.561; M25.561; G89.29; G89.29 Plan Assessment: Bilateral osteoarthritis bilateral knee pain. History of left total knee arthroplasty. Plan: At this point time the patient is roughly 3 months status post his left total knee arthroplasty and doing very well. The patient at this point time would like to proceed with his right total knee arthroplasty as he feels his left knee is doing well enough for him to be able to tolerate loading onto that side while he is protected weightbearing until he gains better motion. Again patient feels that his knee pain is affecting his activities of daily living to include sleep requiring pain medications at time and limited distance. Patient would like to proceed with intervention. Reviewed the pre-operative plans with the patient. Risks and benefits of the procedure were fully explained, including but not limited to infection, neurovascular injury, continued pain, arthritis, stiffness, need for further surgery, re-injury, DVT, PE, general risks of anesthesia, and loss of limb or life. The patient understands all the risks and does wish to proceed with written consent. Going to get him scheduled for right total knee arthroplasty. Any major issues please contact me. Medications Discontinued: amlodipine Discontinued Reason: Order edited - Discontinuing original o5 mg PO DAILY rder 08/08/17 1109 <Electronically signed by Sunny Henriquez DO> Date Sunny Henriquez DO Cosigner Signature: Date (if applicable) CC: CBC-COMPLETE BLOOD CNT Collected: 08/06/2017 Status: F Source: [place] NO DIFF 11:00 AM [facility] TYPE CODE TESTS RESULT OUT OF RANGE REFERENCE UNITS LAB L100.1000 4.4-11.0 K/mm3 Normal WBC 6.7 LAB L100.1200 4.6-6.2 M/mm3 Low RBC 4.17 LAB L100.1300 13.0-16.5 g/dl Low HGB 12.6 LAB L100.1400 40-54 % Low HCT 37.6 LAB L100.1500 80-94 fL Normal MCV 90.2 LAB L100.1600 27.0-32.0 pg Normal MCH 30.2 LAB L100.1700 32-36 g/gl Normal MCHC 33.5 LAB L100.1810 11.6-14.6 % High RDW CV 15.9 LAB L100.1820 35.1-43.9 fl High RDW SD 51.4 LAB L100.1900 150-450 K/mm3 Normal PLT 165 LAB L100.2000 6.2-12.0 fl Normal MPV 9.6 Performed By: #### L100.0500 #### [facility] [address] [place], [address] BASIC METABOLIC Collected: 08/06/2017 Status: F Source: [place] PROFILE (BMP) 11:00 AM [facility] TYPE CODE TESTS RESULT OUT OF RANGE REFERENCE UNITS LAB L501.0100 70-110 mg/dL High GLU 157 Result Comment: Fasting Glucose result greater than or equal to 126 mg/dL suggests DIABETES MELLITUS per A.D.A. criteria. LAB L501.1000 7-18 mg/dL High BUN 20 LAB L501.1100 0.70-1.30 mg/dL Normal CREAT,SERUM 1.12 Result Comment: The validity of the calculated GFR AND GFRAA in patients over 70 years has not been determined. Clinical correlation is essential. LAB L501.1110 >60 mL/min Normal EST GFR 69 Result Comment: Non- GFR Calc LAB L501.1115 >60 mL/min Normal EST GFR - AA 84 Result Comment: GFR Calc LAB L501.1255 ml/min Normal Estimated CRCL 59.02 LAB L501.1300 10-20 RATIO Normal BUN/CRE 17.9 LAB L501.2200 8.5-10 mg/dL Normal .1 CA 9.3 LAB L501.5300 136-14 mmol/L Normal 5 NA 141 LAB L501.5600 3.5-5. mmol/L Normal 1 K 3.7 LAB L501.5900 98-107 mmol/L High CL 108 LAB L501.6100 21.0-3 mmol/L Normal 2.0 CO2 24.0 LAB L501.6200 5-15 Normal GAP 9 Performed By: #### L500.2500 #### [facility] [address] [place], [address] Observed: 08/06/2017 Status: F Source: [place] MRSA/SAID SCREEN 11:00 AM [facility] MRSA/SAID SCRN S. AUREUS S. aureus Negative MRSA MRSA Negative Performed By: #### M100.651 #### [facility] [address] [place], [address] ALLERGIES ALLERGIES DATE TYPE / CODE NAME / CODE REACTION SEVERITY SOURCE 12/06/2017 Drug morphine/F0 Hives Unknown [place] Allergy/416 [id number](RX [facility] 884600([facility] ED CT) Repository 12/06/2017 Drug lovastatin/ Unknown [place] Allergy/416 [id number]( [facility] 579789([facility] Repository 12/06/2017 Drug pravastatin Unknown [place] Allergy/416 /[id number] [facility] 797765([facility] ([facility]) Repository 12/06/2017 Drug hydromorpho Itching Unknown [place] Allergy/416 ne/[id number] [facility] 271034([facility] 22([facility]) Repository 12/06/2017 Drug atorvastati Unknown [place] Allergy/416 n/[id number] [facility] 534740([facility] 1([facility]) Repository 12/06/2017 Drug oxycodone/F hallunications [place] Allergy/416 [id number](R Community 862113([facility] Repository 12/06/2017 Drug acetaminoph hallunications [place] Allergy/416 en/[id number] Community 715517([facility] 05([facility]) Repository ENCOUNTERS ENCOUNTERS ADMIT/DISCHARGE ACCOUNT ADMITTING ENCOUNTER LOCATION SOURCE NUMBER CLASS 07/08/2018 [id number] Ambulatory [place] [facility] ing:LAB Repository 05/17/2018 [id number] Amb[place] [facility] ing:HPRAD Repository 05/17/2018/ [id number] Ambulatory BMS[facility]:B [place] 8 [facility] 01/24/2018 [id number] [facility] [place] [facility]HPRAD Repository 01/24/2018/ [id number] Ambulatory BMSBuilding:B [place] 8 4 [place] Repository 12/06/2017/ [id number] Ambulatory BMSBuilding:B [place] 8 9 [facility] Repository 11/08/2017 [id number] [facility]ulatory [place] 6 [facility] ing:MTRAD Repository 11/05/2017 [id number] Ambulatory [place] 5 [facility] ing:HPRAD Repository 11/05/2017/ [id number] Ambulatory BMSBuilding:B [place] 8 0 [facility] Repository 10/22/2017 [id number] Ambulatory BMSBuilding:B [place] 1 [place].[facility] Repository 10/15/2017 [id number] Ambulatory [place] 9 [facility] ing:BFHLAB Repository 09/24/2017 [id number] Ambulatory [place] 8 [facility] ing:HPRAD Repository 09/24/2017/ [id number] Ambulatory BMSBuilding:B [place] 8 7 [facility] Repository 09/24/2017/ [id number] Ambulatory [place] 8 0 [facility] ing:PT Repository 09/16/2017/ [id number] Ambulatory BMSBuilding:B [place] 8 2 [facility] Repository 08/27/2017/ [id number] Ambulatory BMSBuilding:B [place] 8 2 [facility] Repository 08/17/2017/ [id number] Sunny Henriquez Inpatient [place] 8 5 [facility] Hospital ing:LF6Uwec: Repository LV838Tdf: 1 08/17/2017 [id number] Ambulatory BMSBuilding:W [place] 9 [facility] Repository 08/17/2017 [id number] Ambulatory BMSBuilding:W [place] 8 [facility] Repository 08/17/2017 [id number] Sunny Henriquez Ambulatory BMSBuilding:W [place] 6 [facility] Repository 08/04/2017/ [id number] Ambulatory BMSBuilding:B [place] 7 3 [facility] Repository PAYERS PAYERS ENCOUNTER GUARANTOR PAYER SUBSCRIBER SOURCE 07/08/2018 AMAYA Silvestre Primary AMAYA Whit[place]oster [id number] Insurance:MEDICARE SHIPLETTDOB: Community [place] PART A [facility] [id number] Number: Repository [address]Hbm: [phone] [id number] [phone] () Date:2018-07-08 07/08/2018 Secondary AMAYA L [place] Insurance:AARPPolicy SHIPLETTDOB: [facility] Number: [id number] Hospital [id number] Repository Date:2092-73-40[address], [place] [address]YU: 07/08/2018 Tertiary NOT GIVENUNK [place] Insurance:SELF PAY [facility] Number: Effective Repository Date:2018-07-08 05/17/2018 AMAYA Silvestre Primary AMAYA L [place] [id number] Insurance:MEDICARE SHIPLETTDOB: Community CROSSWIND PART A [facility] [id number], [place] Number: Repository [address]Ojh: 330 [id number] [phone] () Date:2018-05-17 05/17/2018 Secondary AMAYA Konrad [place] Insurance:AARPPolicy SHIPLETTDOB: [facility] Number: [id number] Hospital [id number] Repository Date:5438-96-37[address], [place] [address]OT: 05/17/2018 Tertiary NOT GIVENUNK [place] Insurance:SELF PAY [facility] Number: Effective Repository Date:2018-05-17 05/17/2018 AMAYA L Primary AMAYA L [place] [id number] Insurance:MEDICARE SHIPLETTDOB: Community [place] PART A [facility] [id number], [place] Number: Repository [address]Jpk: [phone] [id number] [phone] () Date:2018-05-12 05/17/2018 Secondary AMAYA L [place] Insurance:AARPPolicy SHIPLETTDOB: Community Number: [id number] Hospital [id number] Repository Date:3585-72-56KQ [facility] [address]FV[place]BP, [place] [address]ND: 05/17/2018 Tertiary NOT GIVENUNK [place] Insurance:SELF PAY [facility] Number: Effective Repository Date:2018-05-17 01/24/2018 AMAYA L Primary AMAYA L [place] [id number] Insurance:MEDICARE SHIPLETTDOB: Community [place] PART A [facility] [id number], [place] Number: Repository [address]Nqg: [phone] [id number] [phone] () Date:2018-01-24 01/24/2018 Secondary AMAYA L [place] Insurance:AARPPolicy SHIPLETTDOB: Community Number: [id number] Hospital [id number] Repository Date:4010-53-53[address]PGTVF, [place] [address]MC: 01/24/2018 Tertiary NOT GIVENUNK [place] Insurance:SELF PAY [facility] Number: Effective Repository Date:2018-01-24 01/24/2018 AMAYA L Primary AMAYA L [place] [id number] Insurance:MEDICARE SHIPLETTDOB: Community [place] PART A [facility] [id number], [place] Number: Repository 85[address]Xvt: [phone] [id number] [phone] () Date:2017-11-05 01/24/2018 Secondary AMAYA L [place] Insurance:AARPPolicy SHIPLETTDOB: Community Number: [id number] [facility] [id number] Repository Date:1085-24-66YI [facility] [address]WBK[place], [place] [address]TL: 01/24/2018 Tertiary NOT GIVENUNK [place] Insurance:SELF PAY [facility] Number: Effective Repository Date:2018-01-24 12/06/2017 AMAYA L Primary AMAYA L [place] [id number] Insurance:MEDICARE SHIPLETTDOB: Community [place] PART A [facility] [id number], [place] Number: Repository [address]Bzq: 330 [id number] [phone] (HP) Date:2017-07-27 12/06/2017 Secondary AMAYA L [place] Insurance:AARPPolicy SHIPLETTDOB: Community Number: [id number] [place] [address] [id number] Repository Date:9943-37-92VQ [address]XFT[address], [place] [address]EP: 12/06/2017 Tertiary NOT GIVENUNK [place] Insurance:SELF PAY [facility] Number: Effective Repository Date:2017-12-06 11/08/2017 AMAYA L Primary AMAYA L [place] [id number] Insurance:MEDICARE SHIPLETTDOB: Community [place] PART A [id number] [place] Number[facility] Repository [address]Eso: 330 [id number] [phone] (HP) Date:2017-11-08 11/08/2017 Secondary AMAYA L [place] Insurance:AARPPolicy SHIPLETTDOB: Community Number: [id number] Hospital [id number] Repository Date:7426-36-86[address], [place] [address]SO: 11/08/2017 Tertiary NOT GIVENUNK [place] Insurance:SELF PAY [facility] Number: Effective Repository Date:2017-11-08 11/05/2017 AMAYA L Primary AMAYA L [place] [id number] Insurance:MEDICARE SHIPLETTDOB: Community [place] PART A [facility] [id number], [place] Number: Repository [address]Yst: 330 [id number] [phone] (HP) Date:2017-11-05 11/05/2017 Secondary AMAYA L [place] Insurance:AARPPolicy SHIPLETTDOB: Community Number: [id number] [place] [address] [id number] Repository Date:1504-98-93EI [address]CG, [place] [address]EQ: 11/05/2017 Tertiary NOT GIVENUNK [place] Insurance:SELF PAY [facility] Number: Effective Repository Date:2017-11-05 11/05/2017 AMAYA L Primary AMAYA L [place] [id number] Insurance:MEDICARE SHIPLETTDOB: Community [place]IND PART A [facility] [id number] [place] Number: Repository [address]Yzl: (365) [id number] [phone] () Date:2017-09-24 11/05/2017 Secondary AMAYA L [place] Insurance:AARPPolicy SHIPLETTDOB: Community Number: [id number] Hospital [id number] Repository Date:1166-15-70[address]SAAN, [place] [address]NJ: 11/05/2017 Tertiary NOT GIVENUNK [place] Insurance:SELF PAY [facility] Number: Effective Repository Date:2017-11-05 10/22/2017 AMAYA L Primary AMAYA L [place] [id number] Insurance:MEDICARE SHIPLETTDOB: Community [place] PART A [facility] [id number] [place] Number: Repository [address]Xpf: [phone]) [id number] [phone] () Date:2017-10-22 10/22/2017 Secondary AMAYA L [place] Insurance:AARPPolicy SHIPLETTDOB: Community Number: [id number] [id number] Repository Date:6084-46-70[address]NXFLSGC, [place] [address]RX: 10/22/2017 Tertiary NOT GIVENUNK [place] Insurance:SELF PAY [facility] Number: Effective Repository Date:2017-10-22 10/15/2017 AMAYA L Primary AMAYA L [place] [id number] Insurance:MEDICARE SHIPLETTDOB: Community [place] PART A [facility] [id number] [facility] [place] Number: Repository [address]Uct: 330 [id number] [phone] (HP) Date:2017-10-15 10/15/2017 Secondary AMAYA L [place] Insurance:AARPPolicy SHIPLETTDOB: Community Number: [id number] Hospital [id number] Repository Date:1360-03-05VH [address]VWGQV, [place] [address]AE: 10/15/2017 Tertiary NOT GIVENUNK [place] Insurance:SELF PAY Community [facility] Number: Effective Repository Date:2017-10-15 09/24/2017 AMAYA L Primary AMAYA L [place] [id number] Insurance:MEDICARE SHIPLETTDOB: Community CROSSWIND PART A [facility] [id number], [place] Number: Repository [address]Kgh: 330 [id number] [phone] () Date:2017-09-24 09/24/2017 Secondary AMAYA L [place] Insurance:AARPPolicy SHIPLETTDOB: Community Number: [id number] Hospital [id number] Repository Date:3729-58-73QN [address]YFDAVHE, [place] [address]UD: 09/24/2017 Tertiary NOT GIVENUNK [place] Insurance:SELF PAY [facility] Number: Effective Repository Date:2017-09-24 09/24/2017 AMAYA L Primary AMAYA L [place] [id number] Insurance:MEDICARE SHIPLETTDOB: Community [place]OSSWIND PART A [facility] [id number], [place] Number: Repository [address]Tvj: 330 [id number] [phone] (HP) Date:2017-08-10 09/24/2017 Secondary AMAYA L [place] Insurance:AARPPolicy SHIPLETTDOB: Community Number: [id number] Hospital [id number] Repository Date:3918-60-46FS [address]ZWUWL[place], [place] [address]ME: 09/24/2017 Tertiary NOT GIVENUNK [place] Insurance:SELF PAY Community [facility] Number: Effective Repository Date:2017-08-10 09/24/2017 AMAYA L Primary AMAYA L [place] [id number] Insurance:MEDICARE SHIPLETTDOB: Community CROSSWIND PART A [facility] [id number], [place] Number: Repository [address]Lzo: 330 [id number] [phone] (HP) Date:2013-08-09 09/24/2017 Secondary AMAYA L [place] Insurance:AARPPolicy SHIPLETTDOB: Community Number: [id number] Hospital [id number] Repository Date:3919-64-37[address]HMLGTUA, [place] [address]DR: 09/24/2017 Tertiary NOT GIVENUNK [place] Insurance:SELF PAY [facility] Number: Effective Repository Date:2017-08-23 09/16/2017 AMAYA L Primary AMAYA L [place] [id number] Insurance:MEDICARE SHIPLETTDOB: Community CROSSWIND PART A [facility] [id number] Number: Repository [address]Nez: 330 [id number] [phone] (HP) Date:2017-09-16 09/16/2017 Secondary AMAYA L [place] Insurance:AARPPolicy SHIPLETTDOB: Community Number: [id number] Hospital [id number] Repository Date:6490-66-92CT [address]GBHVLLS, [place] [address]XP: 09/16/2017 Tertiary NOT GIVENUNK [place] Insurance:SELF PAY [facility] Number: Effective Repository Date:2017-09-16 08/27/2017 AMAYA L Primary AMAYA L [place] [id number] Insurance:MEDICARE SHIPLETTDOB: Community CROSSWIND PART A [facility] [id number] [place] Number: Repository [address]Qkk: 330 [id number] [phone] (HP) Date:2017 08/27/2017 Secondary AMAYA L [place] Insurance:AARPPolicy SHIPLETTDOB: Community Number: [id number] [facility] [id number] Repository Date:8439-67-51[address], [place] [address]FE: 08/27/2017 Tertiary NOT GIVENUNK [place] Insurance:SELF PAY [facility] Number: Effective Repository Date:2017 08/17/2017 AMAYA L Primary AMAYA L [place] [id number] Insurance:MEDICARE SHIPLETTDOB: Community CROSSWIND PART A [facility] [id number] Number: Repository [address]Iyw: [phone] [id number] [phone] () Date:2017-08-04 08/17/2017 Secondary AMAYA L [place] Insurance:AARPPolicy SHIPLETTDOB: Community Number: [id number] [facility] [id number] Repository Date:8999-04-67[address]HJCKMD, [place] [address]VZ: 08/17/2017 Tertiary NOT GIVENUNK [place] Insurance:SELF PAY [facility] Number: Effective Repository Date:2017-08-04 08/17/2017 AMAYA L Primary AMAYA L [place] [id number] Insurance:MEDICARE SHIPLETTDOB: Community CROSSWIND PART A [facility] [id number] Number: Repository [id number]: [phone] [id number] [phone] () Date:2017-08-04 08/17/2017 Secondary AMAYA L [place] Insurance:AARPPolicy SHIPLETTDOB: Community Number: [id number] [facility] [id number] Repository Date:6551-25-76[address]JQXSVWF, [place] [address]WE: 08/17/2017 Tertiary NOT GIVENUNK [place] Insurance:SELF PAY [facility] Number: Effective Repository Date:2017-08-17 08/17/2017 AMAYA L Primary AMAYA L [place] [id number] Insurance:MEDICARE SHIPLETTDOB: Community CROSSWIND PART A [facility] [id number] Number: Repository [id number]: 330 [id number] [phone] () Date:2017-08-04 08/17/2017 Secondary AMAYA L [place] Insurance:AARPPolicy SHIPLETTDOB: Community Number: [id number] Hospital [id number] Repository Date:6204-12-68[address]U [address], [place] [address]ZM: 08/17/2017 Tertiary NOT GIVENUNK [place] Insurance:SELF PAY [facility] Number: Effective Repository Date:2017-08-17 08/17/2017 AMAYA L Primary AMAYA L [place] [id number] Insurance:MEDICARE SHIPLETTDOB: Community CROSSWIND PART A [id number] Number[place] Repository [address]Lkn: 330 [id number] [phone] () Date:2017-08-04 08/17/2017 Secondary AMAYA L [place] Insurance:AARPPolicy SHIPLETTDOB: Community Number: [id number] Hospital [id number] Repository Date:2729-45-51CZ [address]OF[place], [place] [address]WC: 08/17/2017 Tertiary NOT GIVENUNK [place] Insurance:SELF PAY [facility] Number: Effective Repository Date:2017-08-17 08/04/2017 AMAYA L Primary AMAYA L [place] [id number] Insurance:MEDICARE SHIPLETTDOB: Community CROSSWIND PART A [id number] [place] [facility] Repository [address]Nof: [phone] [id number] [phone] () Date:2017-07-12 08/04/2017 Secondary AMAYA L [place] Insurance:AARPPolicy SHIPLETTDOB: Community Number: [id number] [facility] [id number] Repository Date:7840-85-48KF [address]PBWUQSM, [place] [address]IC: 08/04/2017 Tertiary NOT GIVENUNK [place] Insurance:SELF PAY [facility] Number: Effective Repository Date:2017-07-12
== END ==
PROVIDERS: Family Provider Family Medicine; PCP Family Medicine; Referring Provider Internal Medicine Cardiovascular Disease; Visit Provider Internal Medicine Cardiovascular Disease
DX: E78.5 Hyperlipidemia, unspecified (principal); I25.10 Atherosclerotic heart disease of native coronary artery without angina pectoris
CPT/HCPCS: 36415; 80061; 80076

== ENCOUNTER → 2018-08-18 11:07 | Outpatient (CLI) | payer MEDICARE, OTHER, SELFPAY ==
[2018-08-18 11:04] VITALS: BMI 33.8
--- NOTE | 2018-08-18 11:10 | RAD_ITS ---
STUDY: X-RAY CHEST REASON FOR EXAM: Male, 67 years old. Cough. TECHNIQUE: PA and lateral views of the chest. COMPARISON: Comparison is made with prior study dated December 25, 2006. FINDINGS: The lungs are clear and expanded. There is no demonstrated pleural abnormality. Normal size heart. Normal mediastinum and yahaira. Normal visualized pulmonary arteries. Normal visualized aortic arch and descending thoracic aorta. There are degenerative changes of the visualized thoracic spine. Normal visualized ribs, clavicles, and shoulders. There is no demonstrated abnormality of the visualized soft tissue structures of the upper abdomen. RAD/Chest PA and Lateral IMPRESSION: Normal x-ray examination of the chest. Electronically Signed: Taurus Davis MD at 11:28 EST Tel [phone], Service support ,
== END ==
PROVIDERS: Family Provider Family Medicine; PCP Family Medicine; Referring Provider Physician Assistant; Visit Provider Physician Assistant
DX: R05 Cough (principal); R53.83 Other fatigue
CPT/HCPCS: 71046

== ENCOUNTER → 2018-09-01 13:43 | Outpatient (CLI) | payer MEDICARE, OTHER, SELFPAY ==
[2018-08-27 08:54] VITALS: BMI 33.8
--- NOTE | 2018-09-01 13:45 | RAD_ITS ---
STUDY: X-RAY - LEFT KNEE REASON FOR EXAM: Male, 68 years old. Pain TECHNIQUE: 4 view(s) of the knee. COMPARISON: None. FINDINGS: There is a total left knee replacement with a metallic hardware in good position. The quadriceps and patellar tendons are normal. There is no knee joint effusion. Small areas of heterotopic ossifications are seen superior to the patella. RAD/Knee 4 or More Views IMPRESSION: The total left knee replacement with a metallic hardware in good position. Electronically Signed: Zhen Wilkes MD at 4:45 EST Tel , Service support ,
--- NOTE | 2018-09-01 13:45 | RAD_ITS ---
STUDY: X-RAY - RIGHT KNEE REASON FOR EXAM: Male, 68 years old. Pain TECHNIQUE: 4 view(s) of the knee. COMPARISON: January 24, 2018 FINDINGS: There is evidence of a total right knee replacement with a metallic hardware in good position. The quadriceps and patellar normal. There is no knee joint effusion. There are no acute fractures or dislocations. RAD/Knee 4 or More Views IMPRESSION: A total knee replacement with the metallic hardware in good position. Electronically Signed: Zhen Wilkes MD at 5:38 EST Tel , Service support ,
== END ==
PROVIDERS: Family Provider Family Medicine; PCP Family Medicine; Referring Provider Orthopaedic Surgery; Visit Provider Orthopaedic Surgery
DX: M25.561 Pain in right knee (principal); M25.562 Pain in left knee
CPT/HCPCS: 73564

== ENCOUNTER → 2018-12-16 09:52 | Outpatient (CLI) | payer MEDICARE, OTHER, SELFPAY ==
[2018-12-05 14:43] VITALS: BMI 35.2
[2018-12-16 12:15] LABS: Absolute Lymphocyte Count 1.24 X10^3/ul (0.83-4.51); Absolute Neutrophil Count 5.5 X10^3/uL (2.0-7.7); Basophil# 0.02 X10^3/uL; Basophil% 0.3 % (0-1); Eosinophil# 0.55 X10^3/uL; Hematocrit 37.8 % (40-54); Lymphocyte # 1.24 X10^3/ul (4.0); Lymphocyte % 15.7 % (19-41); Mean Corp Hgb Conc 34.4 g/gl (32-36); Mean Corpuscular Hgb 32.3 pg (27.0-32.0); Mean Platelet Vol. 10.6 fl (6.2-12.0); Monocyte% 7.6 % (0-10); Neutrophil # 5.47 X10^3/uL (2.7-7.7); Neutrophil % 69.3 % (47-70); Platelet Count 162 K/mm3 (150-450); RBC Distribution Width CV 14.1 % (11.6-14.6); RBC Distribution Width SD 48.1 fl (35.1-43.9); Red Blood Count 4.02 M/mm3 (4.6-6.2); White Blood Count 7.9 K/mm3 (4.4-11.0)
[2018-12-16 12:16] LABS: POSITIVE COUNT NO; POSITIVE DIFFERENTIAL NO; POSITIVE MORPHOLOGY NO
[2018-12-16 13:19] LABS: AST(SGOT) 18 U/L (15-37); Alanine Aminotransfer ALT/SGPT 23 U/L (16-61); Albumin, Serum 3.8 g/dL (3.2-5.0); Alkaline Phosphatase 124 U/L (45-117); Anion Gap 11 (5-15); BUN 23 mg/dL (7-18); BUN/Creat Ratio 18.5 RATIO (10-20); Calcium,Total 9.3 mg/dL (8.5-10.1); Chloride 113 mmol/L (98-107); Cholesterol 160 mg/dL (200); Creatinine, Serum 1.24 mg/dL (0.70-1.30); EST Glomerular Filtration Rate 61 mL/min (>60); Est Glom Filt Rate - Afr Amer 74 mL/min (>60); Globulin 3.8 g/dL (2.2-4.2); Glucose 112 mg/dL (74-106); High Density Lipoprotein 44 mg/dL; PSA,Total - Annual Screen 9.37 ng/mL (0.00-4.00); Potassium 3.9 mmol/L (3.5-5.1); Protein, Total 7.6 g/dL (6.4-8.2); Sodium Level 145 mmol/L (136-145); Triglycerides 122 mg/dL; Uric Acid 5.7 mg/dL (3.5-7.2); Very Low Density Lipoprotein 24 mg/dL (5-40)
== END ==
PROVIDERS: Family Provider Family Medicine; PCP Family Medicine; Visit Provider Internal Medicine Cardiovascular Disease
DX: I25.10 Atherosclerotic heart disease of native coronary artery without angina pectoris (principal); I77.9 Disorder of arteries and arterioles, unspecified; I10 Essential (primary) hypertension; E78.5 Hyperlipidemia, unspecified; M10.9 Gout, unspecified; Z12.5 Encounter for screening for malignant neoplasm of prostate
CPT/HCPCS: 36415; 80053; 80061; 84153; 84550; 85025; G0103

== ENCOUNTER → 2019-02-21 16:57 | Outpatient (CLI) | payer MEDICARE, OTHER, SELFPAY ==
[2018-12-05 14:43] VITALS: BMI 35.2
--- NOTE | 2019-02-21 | IMM_PTH ---
PATIENT: AMAYA OSULLIVAN LOC: [facility] U#:[id number] AGE/SX: 74/M ROOM: RE02/21/[address]: Dr. Mp Mtz MD : 1950 BED: DIS: SPEC #: [id number] RECD: 02/23/19 11:31 STATUS: ARY REFredy #: [id number] SARABJIT: 02/21/19 00:[address]: Mp Mtz DEPT: IMMUNOHISTOCHEMISTRY RECD BY: Mana Garcia ENTERED: 02/23/19 11:32 SP TYPE: IMMUNO OTHR DR: Dr. Benjamin Prado, Tissues: B - PROSTATE RIGHT Procedures: P40 (add) 34BE12 (initial) PHYSICIAN & [place] [id number] SPECIMEN INFORMATION: Tissue Source: B - Right prostate, mid, core biopsy Clinical Info: Elevated PSA Specimen Number: [id number] CPT code: 59829, 14600 METHODOLOGY: Deparaffinized sections of prefer/formalin-fixed tissue or PAP/DQ stained slides are incubated with monoclonal/polyclonal antibodies/oligonucleotide probes. Localization is made via biotin free immunoperoxidase method. Appropriate controls are performed and reacted as expected. Results on target cell population are indicated in the following table: RESULTS: ANTIBODY / CLONE RESULT Block B 34BE12 (34BE12) positive P40 (BC28) positive These tests were developed and their performance characteristics determined by [facility]. They may not have been cleared or approved by the U.S. Food and Drug Administration. The FDA has determined that such clearance or approval is not necessary. INTERPRETATION: B. Right prostate, mid, core biopsy: Negative for malignancy. KARMA:suhas 02/23/19
--- NOTE | 2019-02-21 08:00 | PROSBIL_PTH ---
PATIENT: AMAYA OSULLIVAN LOC: [facility] U#:[id number] AGE/SX: 74/M ROOM: RE02/21/[address]: Dr. Mp Mtz MD : 1950 BED: DIS: SPEC #: [id number] RECD: 02/21/19 16:30 STATUS: ARY TOMAS #: [id number] SARABJIT: 02/21/19 08:[address]: Mp Mtz DEPT: SURGICAL PATHOLOGY RECD BY: Buck Mcgill ENTERED: 02/22/19 10:56 SP TYPE: PROST BX LUCIANA DR: Dr. Benjamin Prado DO Tissues: A - PROSTATE RIGHT B - PROSTATE RIGHT C - PROSTATE RIGHT D - PROSTATE LEFT E - PROSTATE LEFT F - PROSTATE LEFT Procedures: PROSTATE BX HEADER OPERATION: Prostate biopsy PRE-OP DIAGNOSIS: Elevated PSA TISSUE SUBMITTED: A - Right apex, B - Right mid, C - Right base, D - Left apex, E - Left mid, F - Left base MICROSCOPIC DIAGNOSIS A. Right prostate, apex, core biopsy: Prostatic tissue, negative for malignancy. Focal chronic inflammation. B. Right prostate, mid, core biopsy: Prostatic tissue, negative for malignancy. See comment. C. Right prostate, base, core biopsy: Prostatic tissue, negative for malignancy. Focal atrophy and acute and chronic inflammation. D. Left prostate, apex, core biopsy: Prostatic tissue, negative for malignancy. E. Left prostate, mid, core biopsy: Prostatic tissue, negative for malignancy. F. Left prostate, base, core biopsy: Prostatic tissue, negative for malignancy. Focal atrophy and chronic inflammation. SJ:rg 02/23/19 COMMENT B. Immunohistochemistry ([id number]) supports the above diagnosis. MICROSCOPIC DESCRIPTION Slides are reviewed. GROSS DESCRIPTION A - Received is one container designated prostate, right apex. The specimen consists of two elongated fragments of light ma-white soft tissue measuring 0.6 and 1.5 cm in length and 0.1 cm in diameter. The specimen is totally submitted in one cassette. B - Received is one container designated prostate, right mid. The specimen consists of two elongated fragments of light ma-white soft tissue each measuring 1.5 cm in length and 0.1 cm in diameter. The specimen is totally submitted in one cassette. C - Received is one container designated prostate, right base. The specimen consists of two elongated fragments of light ma-white soft tissue measuring 1 and 2 cm in length and 0.1 cm in diameter. The specimen is totally submitted in one cassette. D - Received is one container designated prostate, left apex. The specimen consists of two elongated fragments of light ma-white soft tissue measuring 1 and 1.2 cm in length and 0.1 cm in diameter. The specimen is totally submitted in one cassette. E - Received is one container designated prostate, left mid. The specimen consists of two elongated fragments of light ma-white soft tissue each measuring 1.2 cm in length and 0.1 cm in diameter. The specimen is totally submitted in one cassette. F - Received is one container designated prostate, left base. The specimen consists of two elongated fragments of light ma-white soft tissue measuring 1.5 and 2 cm in length and 0.1 cm in diameter. The specimen is totally submitted in one cassette. / SJ:rg 02/22/19 TC:5 CPT: G0146
== END ==
PROVIDERS: Family Provider Family Medicine; PCP Family Medicine; Referring Provider Urology; Visit Provider Urology
DX: R97.20 Elevated prostate specific antigen [PSA] (principal)
CPT/HCPCS: 88305; 88341; 88342; G0416

== ENCOUNTER 2019-03-07 12:08 | Emergency (ER) | payer MEDICARE, OTHER, SELFPAY ==
[2018-12-05 14:43] VITALS: BMI 35.2
[2019-03-07 12:08] VITALS: BP 121/84; PULSE 89; RESP 13; TEMP 36.4; O2SAT 95; BMI 35.5
--- NOTE | 2019-03-07 12:53 | EKG12_ITS ---
Test Reason : CP Blood Pressure : / mmHG Vent. Rate : 078 BPM Atrial Rate : 078 BPM P-R Int : 156 ms QRS Dur : 088 ms QT Int : 366 ms P-R-T Axes : 044 -12 020 degrees QTc Int : 417 ms Normal sinus rhythm Possible Left atrial enlargement Inferior infarct (cited on or before 26-DEC-2015), age undetermined Abnormal ECG Confirmed by ZAIRA DILLARD, RAUL ([id number]), editorial manager VALERI HOANG ([id number]) on 03/09/2019 1:30:53 PM Referred By: YUNG/LARISA Confirmed By:RAUL MENESES MD
[2019-03-07 13:02] VITALS: O2SAT 95
[2019-03-07] MEDS: Aspirin 81 MG TAB.CHEW 324 MG PO (13:06)
[2019-03-07 13:07] VITALS: BP 142/73; PULSE 65; RESP 16; O2SAT 95
[2019-03-07] MEDS: Nitroglycerin SL (ED/IMG/CATH) 0.4 MG TABLET SUBLINGUAL ×3 (13:07→13:17)
--- NOTE | 2019-03-07 13:09 | ED.RN ---
PT ASKED PRIOR TO NITRO IF HE TAKES MEDICATIONS FOR ERECTILE DYSFUNCTION, PT DENIES ANY OF THOSE MEDICATIONS.
[2019-03-07 13:13] VITALS: BP 164/91; PULSE 73; O2SAT 94
[2019-03-07 13:15] VITALS: BP 142/83; PULSE 82; RESP 19; O2SAT 92
--- NOTE | 2019-03-07 13:20 | RAD_ITS ---
STUDY: X-RAY CHEST REASON FOR EXAM: Male, 68 years old. Severe heartburn. TECHNIQUE: PA and lateral views of the chest. COMPARISON: Comparison is made with prior study dated August 18, 2018. FINDINGS: EKG electrodes are seen. There is elevation of the right hemidiaphragm with right basilar atelectasis. There is no demonstrated pleural abnormality. Normal size heart. Normal mediastinum and yahaira. Normal visualized pulmonary arteries. There is atherosclerotic tortuosity of the aortic arch and descending thoracic aorta. There are diffuse degenerative changes of the visualized thoracic spine. Normal visualized ribs, clavicles, and shoulders. There is no demonstrated abnormality of the visualized soft tissue structures of the upper abdomen. RAD/Chest PA and Lateral IMPRESSION: Elevation of the right hemidiaphragm with right basilar atelectasis. Electronically Signed: Taurus Davis, at 13:43 EDT , Service support ,
[2019-03-07 13:26] LABS: Absolute Lymphocyte Count 1.22 X10^3/uL (0.83-4.51); Absolute Neutrophil Count 5.1 X10^3/uL (2.0-7.7); Basophil# 0.04 X10^3/uL; Basophil% 0.5 % (0-1); Eosinophil# 0.45 X10^3/uL; Eosinophils% 6.1 % (0-5); Hematocrit 41.6 % (40-54); Hemoglobin 14.7 g/dL (13.0-16.5); Lymphocyte # 1.22 X10^3/ul (4.0); Lymphocyte % 16.7 % (19-41); Mean Corp Hgb Conc 35.3 g/dL (32-36); Mean Corpuscular Hgb 33.3 pg (27.0-32.0); Mean Corpuscular Volume 94.1 fL (80-94); Mean Platelet Vol. 10.6 fl (6.2-12.0); Monocyte# 0.53 X10^3/uL; Monocyte% 7.2 % (0-10); NRBC Flagged by Analyzer 0 % (0-5); Neutrophil # 5.06 X10^3/uL (2.7-7.7); Neutrophil % 69.2 % (47-70); Platelet Count 154 K/mm3 (150-450); RBC Distribution Width CV 13.2 % (11.6-14.6); RBC Distribution Width SD 45.2 fl (35.1-43.9); Red Blood Count 4.42 M/mm3 (4.6-6.2); White Blood Count 7.3 K/mm3 (4.4-11.0)
[2019-03-07 13:33] LABS: Anion Gap 8 (5-15); BUN 21 mg/dL (7-18); BUN/Creat Ratio 16.2 RATIO (10-20); Calcium,Total 9.5 mg/dL (8.5-10.1); Chloride 108 mmol/L (98-107); EST Glomerular Filtration Rate 58 mL/min (>60); Est Glom Filt Rate - Afr Amer 70 mL/min (>60); Estimated Creatinine Clearance 49.43 ml/min; Glucose 149 mg/dL (74-106); Potassium 3.8 mmol/L (3.5-5.1); Sodium Level 141 mmol/L (136-145)
--- NOTE | 2019-03-07 14:13 | ED.VISSUMM ---
- ER Visit Summary Date of Service: 03/07/19 Chief Complaint: Chest pain History of Present Illness: The patient is a 68 M who presents with chest pain that began early this morning. Patient describes as a burning. Patient states he has been taking antacids with minimal relief. Patient states the pain is over the substernal area. Patient states nothing makes it better or worse. Patient denies any shortness of breath. Patient denies any diaphoresis. Patient denies any nausea or vomiting. Patient does have a history of coronary artery disease and hypertension. Physical Examination: Vital signs are stable. Patient is afebrile. Patient is in no acute distress. Oral mucosa is pink and moist. Neck is supple. Trachea is midline. There is no JVD noted. Heart was regular rate and rhythm. Lungs are clear and equal bilaterally. Abdomen is soft. Bowel sounds are normal. There is no tenderness. Cranial nerves II through XII are intact. There are no focal motor or sensory deficits noted. Extremities are intact. There is no peripheral edema or calf tenderness. Test Results: EKG showed normal sinus rhythm with a rate of 78. There are no acute ST or T wave changes. There is questionable prior inferior infarct. EKG was unchanged compared to previous EKG dated 05/04/2017. CBC, basic metabolic profile, troponin were obtained and were within normal limits. PA and lateral chest x-ray was obtained. There is no acute cardiopulmonary process. Emergency Department Course and Treatment: Patient was given aspirin here initially. Patient was given GI cocktail. Patient was advised of his test results. Given that his duration of symptoms is more than 12 hours and his troponin is normal, I do not feel this is cardiac related at this time. Patient was instructed to follow-up with his primary care physician in 3-5 days. Patient understood and was agreeable with the plan. All questions were answered. Disposition: Discharge home Impression: Chest pain This note was generated with [employer] dictation software. It may contain incorrect words, spelling, and punctuation that were not noted in review of the chart prior to signing ED Disposition - Plan for ED Patient: Referrals: Benjamin Prado DO [Primary Care Provider] -
[2019-03-07] MEDS: Mag Hydrox/Al Hydrox/Simeth 30 ML UDC PO (14:30)
[2019-03-07 14:36] VITALS: BP 164/81; PULSE 75; RESP 20; O2SAT 96
== END 2019-03-07 14:43 | disposition home or self-care (01) ==
PROVIDERS: Emergency Provider Emergency Medicine; Family Provider Family Medicine; PCP Family Medicine
DX: R07.9 Chest pain, unspecified (principal); I25.10 Atherosclerotic heart disease of native coronary artery without angina pectoris; I10 Essential (primary) hypertension; R31.9 Hematuria, unspecified; M10.9 Gout, unspecified; Z79.82 Long term (current) use of aspirin; Z79.899 Other long term (current) drug therapy; Z95.5 Presence of coronary angioplasty implant and graft
CPT/HCPCS: 71046; 80048; 84484; 85025; 93005; 99285; A4216

== ENCOUNTER → 2019-05-01 09:42 | Outpatient (CLI) | payer MEDICARE, OTHER, SELFPAY ==
[2019-05-01 12:46] LABS: Rheumatoid Factor < 10.0 IU/mL (<15)
[2019-05-01 13:30] LABS: Hepatitis C Antibody Non-Reactive (Nonreactive)
[2019-05-02 16:07] LABS: PROEL- A/G Ratio 1.3 (0.7-1.7); PROEL- Albumin 3.9 g/dL (2.9-4.4); PROEL- Alpha-1 Globulin 0.3 g/dL (0.0-0.4); PROEL- Alpha-2 Globulin 0.9 g/dL (0.4-1.0); PROEL- Beta Globulin 1.1 g/dL (0.7-1.3); PROEL- Gamma Globulin 0.8 g/dL (0.4-1.8); PROEL- Globulin, Total 3.1 g/dL (2.2-3.9)
[2019-05-03 12:46] LABS: ANTINUCLEAR ANTIBODIES DIRECT Negative (Negative)
== END ==
PROVIDERS: Family Provider Family Medicine; PCP Family Medicine; Visit Provider Family Medicine
DX: R23.3 Spontaneous ecchymoses (principal)
CPT/HCPCS: 36415; 84165; 86038; 86225; 86235; 86431; 86803

== ENCOUNTER → 2019-06-05 | Outpatient (CLI) | payer MEDICARE, OTHER, SELFPAY ==
[2019-06-05 11:20] LABS: AST(SGOT) 18 U/L (15-37); Alanine Aminotransfer ALT/SGPT 24 U/L (16-61); Albumin, Serum 4.1 g/dL (3.2-5.0); Alkaline Phosphatase 100 U/L (45-117); Bilirubin, Direct 0.13 mg/dL (0.00-0.30); Cholesterol 170 mg/dL (200); Globulin 3.6 g/dL (2.2-4.2); High Density Lipoprotein 50 mg/dL; Protein, Total 7.7 g/dL (6.4-8.2); Triglycerides 91 mg/dL; Very Low Density Lipoprotein 18 mg/dL (5-40)
== END | disposition home or self-care (01) ==
LOC: LAB 09:29
PROVIDERS: Family Provider Family Medicine; PCP Family Medicine; Referring Provider Internal Medicine Cardiovascular Disease; Visit Provider Internal Medicine Cardiovascular Disease
DX: E78.5 Hyperlipidemia, unspecified (principal)
CPT/HCPCS: 36415; 80061; 80076

== ENCOUNTER → 2019-06-09 07:48 | Outpatient (CLI) | payer MEDICARE, OTHER, SELFPAY ==
[2019-06-05 10:02] VITALS: BMI 34.9
--- NOTE | 2019-06-09 07:50 | CDU_ITS ---
Reason For Study: Bilateral bruit Rt. Velocities/BP Lt. Velocities/BP Prox CCA 93/12.1 cm/sec. Prox CCA 75.4/9.7 cm/sec. Mid CCA 79.9/9.5 cm/sec. Mid CCA 91.3/11.4 cm/sec. Dist CCA 78.6/10.8 cm/sec. Dist CCA 67.9/11.4 cm/sec. Prox ICA 112.6/24.8 cm/sec. Prox ICA 59.3/11.1 cm/sec. Mid ICA 76.4/14.8 cm/sec. Mid ICA 60.7/15.1 cm/sec. Dist ICA 82.1/16.2 cm/sec. Dist ICA 58/15.1 cm/sec. Rt. ICA/CCA = 1.4. Lt. ICA/CCA = 0.8. Prox ECA 112.5/5.6 cm/sec. Prox ECA 132.1/6 cm/sec. Rt. Vert. 58.6/13.5 cm/sec. Lt. Vert. 42.8 cm/sec. Right Extracranial There is intimal thickening but no significant atherosclerotic plaque noted in the right common carotid artery. There is homogeneous, irregular atherosclerotic plaque noted in the right internal carotid artery. There is intimal thickening but no significant atherosclerotic plaque noted in the right external carotid artery. Flow could not be demonstrated in the right vertebral artery. Left Extracranial There is homogeneous, smooth atherosclerotic plaque noted in the left common carotid artery. There is heterogeneous, irregular atherosclerotic plaque noted in the left internal carotid artery. There is no significant atherosclerotic plaque noted in the left external carotid artery. Antegrade flow is noted in the left vertebral artery. Procedure Carotid Duplex 53425. Exam performed in department. Interpretation Summary Mild (<50%) stenosis right extracranial internal carotid. Mild (<50%) stenosis left extracranial internal carotid. Flow within the left verterbral artery is antegrade. Right vertebral artery occluded. Ordering Physician: Awilda Grande Referring Physician: Benjamin Prado Performed By: Shaniqua Arevalo RVT
== END ==
PROVIDERS: Family Provider Family Medicine; PCP Family Medicine; Referring Provider Physician Assistant Medical; Visit Provider Physician Assistant Medical
DX: R09.89 Other specified symptoms and signs involving the circulatory and respiratory systems (principal); I77.9 Disorder of arteries and arterioles, unspecified
CPT/HCPCS: 93880

== ENCOUNTER 2019-08-08 10:50 | Day surgery (SDC) | payer MEDICARE, OTHER, SELFPAY ==
[2019-07-21 07:55] VITALS: BMI 34.9
--- NOTE | 2019-08-07 16:38 | PCM.HP.BLA ---
History and Physical Date of Admission: 08/08/19 Intake Vital Signs 07/21/19 Body Mass Index (BMI) 34.9 Intake Visit Reasons: LEFT KNEE Chief Complaint: Cough Allergies acetaminophen [From Percocet] Allergy (Mild, Verified 06/05/19 10:02) hallunications atorvastatin [From Lipitor] Allergy (Mild, Verified 06/05/19 10:02) unknown lovastatin [From Mevacor] Allergy (Mild, Verified 06/05/19 10:02) unknown oxycodone [From Percocet] Allergy (Mild, Verified 06/05/19 10:02) hallunications pravastatin [From Pravachol] Allergy (Mild, Verified 06/05/19 10:02) unknown morphine Allergy (Verified 06/05/19 10:02) Hives Lcwtdha-Abk-Qvr Reductase Inhibitor Allergy (Verified 06/05/19 10:02) Other hydromorphone [From Dilaudid] Adverse Reaction (Verified 06/05/19 10:02) Itching [facility] Medical History (Updated 06/05/19 @ 10:51 by YOSSI Durand) Essential hypertension (Chronic) Old myocardial infarction (Chronic) Bilateral carotid bruits (Chronic) Atherosclerotic heart disease of [place] coronary artery without angina pectoris (Chronic) Hyperlipidemia (Chronic) Hemorrhoids (Acute) Shoulder pain (Acute) Arthritis (Chronic) Gout (Chronic) Osteoarthritis of knees, bilateral (Chronic) Heart disease (Inactive) Hypertension (Inactive) Knee pain (Inactive) Myocardial infarction (Inactive) Surgical History (Updated 06/05/19 @ 10:51 by YOSSI Durand) Presence of stent in coronary artery (Chronic ~06/2004) Postsurgical percutaneous transluminal coronary angioplasty (PTCA) status (Chronic) History of carpal tunnel surgery (Chronic) History of total left knee replacement (Chronic) History of arthroplasty of right knee (Resolved) History of arthroscopy of right knee (Resolved) Carpal tunnel syndrome (Inactive) S/P coronary artery stent placement (Inactive) S/P right knee arthroscopy (Inactive) S/P total knee arthroplasty (Inactive) Trigger finger (Inactive) Family History (Updated 07/27/17 @ 15:18 by Charity Verdin) Father COPD (chronic obstructive pulmonary disease) Mother Cancer Brother Myocardial infarction CVA (cerebral vascular accident) CAD (coronary artery disease) Diabetes Hyperlipidemia Sister COPD (chronic obstructive pulmonary disease) Ovarian cancer Social History (Updated 07/21/19 @ 11:18 by Chi Gabriel DO) Smoking Status: Former smoker alcohol intake: never substance use type: does not use HPI LEFT KNEE: Details: Parts of this documentation were recorded by a scribe, this documentation accurately reflects the service provided and the decisions made by me, Chi Gabriel DO 07/21/19 0755. AMAYA OSULLIVAN is a 68 year old M here today for a palpable knot that has been increasing his anterior knee pain for nearly a year. He had a left TKA with Dr Henriquez 08/17/17. He has more pain with stairs and in the morning. Denies numbness, tingling or other associated symptoms. he wants it out. Ortho Exam Left Knee Skin/Wound: No ecchymosis, No erythema, No swelling KNEE: palpable 6mm foreign body anterior knee superior to the patella. likel a capsular stich from his TKA. it is tender. there is no sign of infection there is not joint effusion. Supplemental Info Personally reviewed patients bilateral knee xrays from 09/01/18 which showed left knee cemented TKA in good alignment without signs of loosening and no acute findings. His right knee is a press fit TKA in good alignment and good interfaces. Assessment & Plan Problems 1. Foreign body Plan Explained that there is no mention of what the capsule was closed with so unsure if this is suture that is palpable. Explained that there is very little down time after the removal and it will not require any PT. Reviewed the pre-operative plans with the patient. Risks and benefits of the procedure were fully explained, including but not limited to infection, neurovascular injury, continued pain, arthritis, stiffness, need for further surgery, re-injury, DVT, PE, general risks of anesthesia, and loss of limb or life. The patient understands all the risks and does wish to proceed with written consent. Follow up or sooner if pain, swelling, numbness or associated symptoms, or concerns develop. All questions answered. Patient in agreement of plan. Coding Level of Care Code Off vis,est,level 3 Diagnoses Foreign body I have re-examined the patient. There are no clinical changes since date of exam
[2019-08-08 11:07] VITALS: BP 119/73; PULSE 88; RESP 15; TEMP 36.7; O2SAT 96; BMI 34.4
[2019-08-08] MEDS: Lactated Ringers 1,000 ML 100 ML IV ×2 (11:29→16:05)
--- NOTE | 2019-08-08 12:30 | FORE_PTH ---
PATIENT: AMAYA OSULLIVAN LOC: [facility] [place] U#:[id number] AGE/SX: 68/M ROOM: RE08/08/[address]: Dr. Chi Gabriel DO : 1950 BED: DIS: 08/08/2019 SPEC #: [id number] RECD: 08/10/19 09:15 STATUS: ARY TOMAS #: [id number] SARABJIT: 08/08/19 12:[address]: Chi Gabriel DEPT: SURGICAL PATHOLOGY RECD BY: Buck Mcgill ENTERED: 08/10/19 11:19 SP TYPE: FOREIGN B LUCIANA DR: Dr. Benjamin Prado DO Tissues: FOREIGN BODY Procedures: Decalcification bone/plaque Surgery Specimen Level IV HEADER OPERATION: Knee foreign body excision PRE-OP DIAGNOSIS: Foreign body left knee TISSUE SUBMITTED: Ossification of quadriceps tendon MICROSCOPIC DIAGNOSIS Quadriceps tendon, biopsy: Fibrous tissue with associated nonmetallic polarizable foreign body. See comment. AM:suhas 08/16/19 COMMENT Clinical correlation is suggested. Case has been reviewed in consultation with Dr. Ndiaye who concurs with the above diagnosis. IDC:[id number] MICROSCOPIC DESCRIPTION Slides are reviewed. GROSS DESCRIPTION Received in fixative is one container labeled with the patient's name and designated ossification of quadriceps tendon, left knee. The specimen consists of a piece of bone measuring 0.8 x 0.5 x 0.4 cm. The entire specimen is submitted in one cassette after decalcification. / SJ:suhas 08/10/19 TC:5 CPT: 69370, 69664
[2019-08-08] MEDS: Cefazolin 2 GM in 0.9% Normal Saline 100 ML IV (15:43)
[2019-08-08] MEDS: Bupiv/Epi 0.25% 30 ML Vial (16:04)
[2019-08-08 16:12] VITALS: BP 113/72; BP 119/73; PULSE 65; RESP 16; TEMP 37; O2SAT 94
[2019-08-08 16:17] VITALS: BP 119/73; BP 123/70; PULSE 69; RESP 16; O2SAT 94
[2019-08-08 16:22] VITALS: BP 114/85; BP 119/73; PULSE 64; RESP 16; O2SAT 97
--- NOTE | 2019-08-08 16:28 | DCINST_ITS ---
Discharge Diet: No Restrictions Call your doctor if you observe: Shortness of breath, Chest pain Additional Instructions: Ice and elevate next 72 hours. Encourage knee range of motion. Leave dressing on clean and dry for 48 hours. May begin showering 8 hours after surgery but do not submerge underwater in bath. Otherwise activities as tolerated. Keep clean until marge are removed Allergies/Adverse Reactions: Allergies atorvastatin [From Lipitor] Allergy (Mild, Verified 08/08/19 11:00) unknown lovastatin [From Mevacor] Allergy (Mild, Verified 08/08/19 11:00) unknown pravastatin [From Pravachol] Allergy (Mild, Verified 08/08/19 11:00) unknown hydromorphone [From Dilaudid] Allergy (Verified 08/08/19 11:00) Itching morphine Allergy (Verified 08/08/19 11:00) Hives Eptazbn-Zct-Bba Reductase Inhibitor Allergy (Verified 08/08/19 11:00) Other weakness oxycodone [From Percocet] Adverse Reaction (Mild, Verified 08/08/19 11:00) hallunications Medications to take at Discharge Allopurinol [Zyloprim] 300 mg PO DAILY 05/04/17 aspirin 325 mg tablet 325 mg PO QDAY 09/16/17 lisinopril 20 mg tablet 20 mg PO QDAY 10/22/17 meloxicam 15 mg tablet 15 mg PO QDAY 10/22/17 colchicine 0.6 mg tablet 0.6 mg PO DAILY PRN 12/05/18 niacin 1,000 mg tablet,extended release 24 hr 1,000 mg PO BID tab 12/05/18 nitroglycerin 0.4 mg sublingual tablet 0.4 mg SUBLINGUAL Q5M PRN #90 tab 12/05/18 gemfibrozil 600 mg tablet 600 mg PO BIDAC #180 tab 04/12/19 amlodipine 5 mg tablet 5 mg PO DAILY #90 tab 06/05/19 ezetimibe 10 mg tablet 10 mg PO DAILY #30 tab 06/05/19 Acetaminophen [Tylenol Extra Strength] 500 - 1,000 mg PO Q6H PRN PRN 07/31/19 Hydrocodone Bitart/Apap 5-325 [Antelope 5MG-325MG] 1 - 2 tablet PO Q4H PRN PRN 5 Days #20 tablet 12/31/19 The following prescriptions were given: Hydrocodone Bitart/Apap 5-325 [Antelope 5MG-325MG] 1 - 2 tablet PO Q4H PRN PRN 5 Days #20 tablet PRN Reason: Pain Transmission Status: Sent to [facility] Primary Care Physician: Benjamin Prado DO [Primary Care Provider] - Test Results: Test results from this visit will be discussed in further detail at your follow- up appointment, if applicable. Please Follow Up With: Chi Gabriel DO - 2 weeks
[2019-08-08 16:30] VITALS: BP 119/73; BP 132/64; PULSE 57; RESP 16; TEMP 36.6; O2SAT 94
--- NOTE | 2019-08-08 16:31 | OP.PCM_ITS ---
Report of Operation Date of Procedure: 08/08/19 Description of Surgical Findings:: Preoperative diagnosis: Left knee foreign body quadriceps tendon prior total knee arthroplasty Postoperative diagnosis: Ossification 7 x 5 mm quadriceps insertion Procedure: Removal of foreign body Anesthesia: MAC EBL: 5 Complications: None Condition: Stable to PACU Indication for procedure: This is a 68-year-old male who had a total knee replacement in the years past by another surgeon who has failed a small hard foreign body or cyst at the quadriceps insertion which has been causing him significant discomfort and he wished to have it removed risk benefits and alternatives were reviewed including risk of bleeding infection nerve, artery, bone, tissue damage, blood clot need for further surgery and continued pain. Procedure: The patient was met in the preoperative holding area the small foreign body was palpated marked patient was brought back to the operating room will car transfer the upper table supine position anesthesia was started well- padded tourniquet was placed on the left upper thigh patient was prepped and draped in usual sterile fashion timeout was called to the proper patient procedure extremity being contemplated Esmarch was used to exsanguinate the extremity and the tourniquet was inflated to 300 mmHg a 15 blade scalpel was used to make a midline incision using his previous total knee incision only for about an inch and a half at the upper border this was carried out as full- thickness flaps to the quadriceps tendon and immediately beneath the surface of the quadriceps tendon there was a palpable hard ossification which was removed with sharp dissection it measured about 7 x 5 mm and appeared to be ossific in nature it was sent for pathology. The wound was thoroughly irrigated there was no need to close the quadriceps as a very small rent was made subcutaneous tissues were closed with 2-0 Vicryl marge were placed in the skin dressing was applied quarter percent Marcaine with epinephrine was injected into the incisional area performed 4 x 4 ABD web roll and an Miguel A wrap
[2019-08-08 17:14] VITALS: BP 119/73
== END 2019-08-08 17:21 | disposition home or self-care (01) ==
LOC: SDC 10:50 → AC 10:52
PROVIDERS: Family Provider Family Medicine; PCP Family Medicine; Referring Provider Orthopaedic Surgery; Visit Provider Orthopaedic Surgery
PROC: (CPT 27372; principal; 2019-08-08 12:20)
DX: M79.5 Residual foreign body in soft tissue (principal); M67.864 Other specified disorders of tendon, left knee; I25.10 Atherosclerotic heart disease of native coronary artery without angina pectoris; I10 Essential (primary) hypertension; E78.5 Hyperlipidemia, unspecified; M10.9 Gout, unspecified; Z88.8 Allergy status to other drugs, medicaments and biological substances; Z88.5 Allergy status to narcotic agent; I25.2 Old myocardial infarction; Z87.891 Personal history of nicotine dependence; Z95.5 Presence of coronary angioplasty implant and graft; Z96.653 Presence of artificial knee joint, bilateral
CPT/HCPCS: 27372; 88300; 88305; 88311; J7120

== ENCOUNTER → 2019-09-04 10:56 | Outpatient (CLI) | payer MEDICARE, OTHER, SELFPAY ==
[2019-08-21 09:45] VITALS: BMI 34.4
[2019-09-04 13:17] LABS: PSA,Total- Diagnostic 7.79 ng/mL (0.0-4.0)
== END ==
PROVIDERS: PCP Family Medicine; Referring Provider Urology; Visit Provider Urology
DX: N40.1 Benign prostatic hyperplasia with lower urinary tract symptoms (principal)
CPT/HCPCS: 36415; 84153

== ENCOUNTER → 2020-01-22 11:59 | Outpatient (CLI) | payer MEDICARE, OTHER, SELFPAY ==
[2019-08-21 09:45] VITALS: BMI 34.4
--- NOTE | 2020-01-22 12:06 | RAD_ITS ---
STUDY: X-RAY - UNILATERAL RIBS ( LEFT ) REASON FOR EXAM: Male, 69 years old. LEFT MID/ LOWER ANTERIOR RIB PAIN S/P FALL AT THE BEGINNING OF JANUARY TECHNIQUE: 3 view(s) of the ribs. COMPARISON: None. FINDINGS: Normal visualized ribs without a demonstrated fracture. The visualized lung is clear and expanded. RAD/Ribs Unil 2V No CXR IMPRESSION: Normal x-ray examination of the ribs. Electronically Signed: Taurus Davis, at 12:42 EDT , Service support ,
== END ==
PROVIDERS: PCP Family Medicine; Referring Provider Physician Assistant Surgical; Visit Provider Physician Assistant Surgical
DX: S20.212A Contusion of left front wall of thorax, initial encounter (principal)
CPT/HCPCS: 71100

== ENCOUNTER → 2020-01-23 09:14 | Outpatient (CLI) | payer MEDICARE, OTHER, SELFPAY ==
[2019-08-21 09:45] VITALS: BMI 34.4
[2020-01-23 11:04] LABS: AST(SGOT) 20 U/L (15-37); Alanine Aminotransfer ALT/SGPT 23 U/L (16-61); Albumin, Serum 3.9 g/dL (3.2-5.0); Alkaline Phosphatase 113 U/L (45-117); Bilirubin, Direct 0.17 mg/dL (0.00-0.30); Cholesterol 175 mg/dL (200); Globulin 3.7 g/dL (2.2-4.2); High Density Lipoprotein 42 mg/dL; Protein, Total 7.6 g/dL (6.4-8.2); Triglycerides 127 mg/dL; Very Low Density Lipoprotein 25 mg/dL (5-40)
== END ==
PROVIDERS: PCP Family Medicine; Referring Provider Internal Medicine Cardiovascular Disease; Visit Provider Internal Medicine Cardiovascular Disease
DX: E78.5 Hyperlipidemia, unspecified (principal)
CPT/HCPCS: 36415; 80061; 80076

== ENCOUNTER → 2020-09-04 09:13 | Outpatient (CLI) | payer MEDICARE, OTHER, SELFPAY ==
[2020-04-29 09:27] VITALS: BMI 35.3
[2020-09-04 10:28] LABS: Absolute Lymphocyte Count 1.19 X10^3/uL (0.83-4.51); Absolute Neutrophil Count 3.9 X10^3/uL (2.0-7.7); Basophil# 0.03 X10^3/uL; Basophil% 0.5 % (0-1); Eosinophil# 0.33 X10^3/uL; Eosinophils% 5.4 % (0-5); Hematocrit 41.7 % (40-54); Hemoglobin 14.6 g/dL (13.0-16.5); Lymphocyte # 1.19 X10^3/ul (4.0); Lymphocyte % 19.6 % (19-41); Mean Corpuscular Hgb 33.4 pg (27.0-32.0); Mean Corpuscular Volume 95.4 fL (80-94); Mean Platelet Vol. 10.9 fl (6.2-12.0); Monocyte# 0.66 X10^3/uL; Monocyte% 10.9 % (0-10); NRBC Flagged by Analyzer 0 % (0-5); Neutrophil # 3.86 X10^3/uL (2.7-7.7); Neutrophil % 63.4 % (47-70); Platelet Count 156 K/mm3 (150-450); RBC Distribution Width CV 13.1 % (11.6-14.6); RBC Distribution Width SD 45.3 fl (35.1-43.9); Red Blood Count 4.37 M/mm3 (4.6-6.2); White Blood Count 6.1 K/mm3 (4.4-11.0)
[2020-09-04 11:34] LABS: AST(SGOT) 21 U/L (15-37); Alanine Aminotransfer ALT/SGPT 23 U/L (16-61); Alkaline Phosphatase 119 U/L (45-117); Anion Gap 5 (5-15); BUN 27 mg/dL (7-18); BUN/Creat Ratio 18.2 RATIO (10-20); Bilirubin, Direct 0.09 mg/dL (0.00-0.30); Calcium,Total 9.4 mg/dL (8.5-10.1); Chloride 111 mmol/L (98-107); Cholesterol 175 mg/dL (200); Creatinine, Serum 1.48 mg/dL (0.70-1.30); EST Glomerular Filtration Rate 50 mL/min (>60); Est Glom Filt Rate - Afr Amer 60 mL/min (>60); Globulin 3.7 g/dL (2.2-4.2); Glucose 111 mg/dL (74-106); High Density Lipoprotein 49 mg/dL; Potassium 4.1 mmol/L (3.5-5.1); Protein, Total 7.7 g/dL (6.4-8.2); Sodium Level 142 mmol/L (136-145); Triglycerides 119 mg/dL; Uric Acid 5.4 mg/dL (3.5-7.2); Very Low Density Lipoprotein 24 mg/dL (5-40)
[2020-09-04 14:16] LABS: PSA,Total- Diagnostic 6.92 ng/mL (0.0-4.0)
== END ==
PROVIDERS: Internal Medicine Cardiovascular Disease; PCP Family Medicine; Referring Provider Family Medicine; Visit Provider Family Medicine
DX: E78.5 Hyperlipidemia, unspecified (principal); I10 Essential (primary) hypertension; M10.9 Gout, unspecified; Z51.81 Encounter for therapeutic drug level monitoring; R97.20 Elevated prostate specific antigen [PSA]
CPT/HCPCS: 36415; 80048; 80061; 80076; 84153; 84550; 85025

== ENCOUNTER 2020-10-10 17:20 | Outpatient (RCR) | payer MEDICARE, OTHER, SELFPAY ==
[2020-04-29 09:27] VITALS: BMI 35.3
[2020-10-10] MEDS: COVID-19 VACC, MRNA(PFIZER)/PF 30 MCG/0.3 ML SYRINGE IM (10:12)
[2020-10-31] MEDS: COVID-19 VACC, MRNA(PFIZER)/PF 30 MCG/0.3 ML SYRINGE IM (10:04)
== END 2020-10-10 23:59 ==
LOC: IMMUN 17:20
PROVIDERS: PCP Family Medicine; Referring Provider Family Medicine; Visit Provider Family Medicine
DX: Z23 Encounter for immunization (principal)
CPT/HCPCS: 0001A; 0002A

== ENCOUNTER 2020-11-18 16:23 | Observation (INO) | payer MEDICARE, OTHER, SELFPAY ==
[2020-04-29 09:27] VITALS: BMI 35.3
[2020-11-18] VITALS (8 sets, daily range): BP systolic 126–152; BP diastolic 58–72; PULSE 58–65; RESP 17–21; TEMP 35.3–36.6; O2SAT 96–99; BMI 35.7; BMI 35.6
--- NOTE | 2020-11-18 16:27 | EKG12_ITS ---
Test Reason : CP Blood Pressure : / mmHG Vent. Rate : 062 BPM Atrial Rate : 062 BPM P-R Int : 164 ms QRS Dur : 088 ms QT Int : 406 ms P-R-T Axes : 046 003 031 degrees QTc Int : 412 ms Normal sinus rhythm Inferior infarct , age undetermined, cannot be excluded Abnormal ECG Confirmed by ZAIRA DILLARD, RAUL ([id number]), metropolitan editor VALERI HOANG ([id number]) on 11/20/2020 11:20:09 AM Referred By: KINGS/GENESIS Confirmed By:RAUL MENESES MD
[2020-11-18 16:50] LABS: Absolute Neutrophil Count 3.9 X10^3/uL (2.0-7.7); Basophil# 0.03 X10^3/uL; Basophil% 0.5 % (0-1); Eosinophil# 0.33 X10^3/uL; Eosinophils% 5.2 % (0-5); Hematocrit 41.4 % (40-54); Hemoglobin 14.4 g/dL (13.0-16.5); Lymphocyte % 22.2 % (19-41); Mean Corp Hgb Conc 34.8 g/dL (32-36); Mean Corpuscular Hgb 33.1 pg (27.0-32.0); Mean Corpuscular Volume 95.2 fL (80-94); Mean Platelet Vol. 10.1 fl (6.2-12.0); Monocyte# 0.62 X10^3/uL; Monocyte% 9.8 % (0-10); NRBC Flagged by Analyzer 0 % (0-5); Neutrophil # 3.91 X10^3/uL (2.7-7.7); Platelet Count 144 K/mm3 (150-450); RBC Distribution Width CV 13.2 % (11.6-14.6); RBC Distribution Width SD 45.7 fl (35.1-43.9); Red Blood Count 4.35 M/mm3 (4.6-6.2); White Blood Count 6.3 K/mm3 (4.4-11.0)
[2020-11-18 17:14] LABS: Anion Gap 7 (5-15); BUN 26 mg/dL (7-18); BUN/Creat Ratio 19.1 RATIO (10-20); Calcium,Total 9.7 mg/dL (8.5-10.1); Chloride 106 mmol/L (98-107); Creatinine, Serum 1.36 mg/dL (0.70-1.30); EST Glomerular Filtration Rate 55 mL/min (>60); Est Glom Filt Rate - Afr Amer 66 mL/min (>60); Glucose 139 mg/dL (74-106); Potassium 4.1 mmol/L (3.5-5.1); Sodium Level 138 mmol/L (136-145)
--- NOTE | 2020-11-18 17:15 | RAD_ITS ---
STUDY: X-RAY CHEST REASON FOR EXAM: Male, 70 years old. chest pain TECHNIQUE: Single AP portable view of the chest. COMPARISON: 01/22/2020 FINDINGS: The lungs are clear and expanded. Elevated right hemidiaphragm which is unchanged. Normal size heart. Normal mediastinum and yahaira. Normal visualized pulmonary arteries. Normal visualized aortic arch and descending thoracic aorta. Normal visualized thoracic spine. Normal visualized ribs, clavicles, and shoulders. There is no demonstrated abnormality of the visualized soft tissue structures of the upper abdomen. RAD/Chest 1 View (Portable) IMPRESSION: Normal x-ray examination of the chest. Electronically Signed: Aki Jimenez MD at 17:27 EDT Tel , Service support ,
[2020-11-18] MEDS: Nitroglycerin SL (ED/IMG/CATH) 0.4 MG TABLET SL (17:27)
--- NOTE | 2020-11-18 17:56 | ED.DCSUM_ITS ---
- ER Visit Summary Date of Service: 11/18/20 Chief Complaint: Chest pain History of Present Illness: The patient is a 70 M presenting with chest pain. Patient states this started today. It has been waxing and waning. Currently 7 out of 10. He has midsternal and left-sided chest pain. He has associated nausea with no vomiting. He denies shortness of breath or diaphoresis. Denies fever or cough. Denies PE/DVT risk factors. He took aspirin 325 mg today before arrival. He has history of CAD, hypertension, hypercholesterolemia. He is not a smoker. Physical Examination: Vitals are stable. Patient is afebrile. Alert no acute distress. HEENT exam is unremarkable. Neck is supple. Lungs are clear and equal bilaterally. Heart is regular rate and rhythm. Abdomen is soft nontender nondistended. Extremities are unremarkable. Skin is warm and dry. No focal neurologic deficit. Remainder of exam is unremarkable. Emergency Department Course and Treatment: EKG is sinus rhythm rate of 62 with no acute ischemic changes. Chest x-ray read by myself and radiology shows no acute process. CBC, chemistries unremarkable other than glucose 139, BUN 26, creatinine 1.36. Troponin is negative. Patient was given nitro x1. His pain is resolved after nitro. Discussed with the hospitalist for observation. Disposition: Observation Impression: Chest pain This note was generated with [email or web address] dictation software. It may contain incorrect words, spelling, and punctuation that were not noted in review of the chart prior to signing ED Disposition - Plan for ED Patient: Referrals: Benjamin Prado DO [Primary Care Provider] -
--- NOTE | 2020-11-18 17:59 | NURSING ---
DR ANNE KU
--- NOTE | 2020-11-18 18:00 | PCM.HP.STD ---
Problem List (1) Essential hypertension Status: Chronic (2) Presence of stent in coronary artery Status: Chronic Comment: PTCA of Lt CX 1996; PTCA/FITZ to OM and PTCA/BMS 06/12 (3) Atherosclerotic heart disease of [place] coronary artery without angina pectoris Status: Chronic Qualifiers: Comment: PTCA of Lt CX 1996; PTCA/FITZ to OM and PTCA/BMS 06/12 (4) Hyperlipidemia Status: Chronic Qualifiers: History of Present Illness Date of Admission: 11/18/20 Chief Complaint: Chest pain. The patient is a 70 year old M with past medical history as mentioned above presented to the emergency room because of chest pain. His symptoms started this morning when he was sitting, started having left-sided chest pain, described as chest tightness, mild, 3 out of 10 in severity, not radiating, initially was intermittent and in the afternoon, it was more persistent, no associated symptoms and no aggravating or relieving factors. He denied associated shortness of breath, palpitation, dizziness, sweating, nausea or vomiting. He denied syncope or presyncope. He mentioned that pain is gone after he received sublingual nitro in the ED. Currently, he is chest pain-free. His vital signs were stable. Routine blood work was remarkable for BUN of 26, creatinine is 1.36, otherwise normal. EKG revealed normal sinus rhythm without evidence of acute ischemic changes. Troponin was negative. Chest x-ray showed no acute findings. He is being admitted for chest pain for evaluation. Past Medical History Past Medical History (Chronic Problems): Chronic Problems (Last Updated 11/18/20 @ 17:[address] 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 Silas Barahona MD) Essential hypertension (Chronic) I10 Old myocardial infarction (Chronic) I25.2 Bilateral carotid bruits (Chronic) R09.89 Atherosclerotic heart disease of [place] coronary artery without angina pectoris (Chronic) I25.10 PTCA of Lt CX 1996; PTCA/FITZ to OM and PTCA/BMS 06/12 Hyperlipidemia (Chronic) E78.5 Hemorrhoids K64.9 Shoulder pain M25.519 Arthritis M19.90 Gout M10.9 Osteoarthritis of knees, bilateral M17.0 Heart disease I51.9 Knee pain M25.569 Myocardial infarction I21.9 Allergies atorvastatin [From Lipitor] Allergy (Mild, Verified 04/29/20 09:28) unknown lovastatin [From Mevacor] Allergy (Mild, Verified 04/29/20 09:28) unknown pravastatin [From Pravachol] Allergy (Mild, Verified 04/29/20 09:28) unknown hydromorphone [From Dilaudid] Allergy (Verified 04/29/20 09:28) Itching morphine Allergy (Verified 04/29/20 09:28) Hives orange flavor Allergy (Verified 11/18/20 16:25) MOUTH SORES Qsappre-Ujr-Xjn Reductase Inhibitor Allergy (Verified 04/29/20 09:28) Other weakness oxycodone [From Percocet] Adverse Reaction (Mild, Verified 04/29/20 09:28) hallunications Home Medications: Ambulatory Orders Medication Instructions Recorded Allopurinol [Zyloprim] 300 mg PO DAILY 05/04/17 aspirin 325 mg tablet 325 mg PO QDAY 09/16/17 lisinopril 20 mg tablet 20 mg PO QDAY 10/22/17 meloxicam 15 mg tablet 15 mg PO QDAY 10/22/17 colchicine 0.6 mg tablet 0.6 mg PO DAILY PRN 12/05/18 niacin 1,000 mg tablet,extended 1,000 mg PO BID tab 12/05/18 release 24 hr nitroglycerin 0.4 mg sublingual 0.4 mg SUBLINGUAL Q5M PRN #90 tab 12/05/18 tablet Acetaminophen [Tylenol Extra 500 - 1,000 mg PO Q6H PRN PRN 07/31/19 Strength] gemfibrozil 600 mg tablet 600 mg PO BIDAC #180 tab 03/14/20 amlodipine 10 mg tablet 10 mg PO DAILY #90 tab 07/29/20 ezetimibe 10 mg tablet 10 mg PO DAILY #90 tab 07/29/20 Surgical History: Surgical History (Last Reviewed 04/29/20 @ 09:29 by Awilda Heard) Presence of stent in coronary artery (Chronic) Onset Date: ~06/2004 Z95.5 PTCA of Lt CX 1996; PTCA/FITZ to OM and PTCA/BMS 06/12 Postsurgical percutaneous transluminal coronary angioplasty (PTCA) status (Chronic) Z98.61 PTCA of Lt CX 1996; PTCA/FITZ to OM and PTCA/BMS 06/12 History of carpal tunnel surgery Z92.89 History of total left knee replacement Z96.652 History of arthroplasty of right knee Z96.651 08/17/17 History of arthroscopy of right knee Z98.890 Carpal tunnel syndrome G56.00 S/P coronary artery stent placement Z95.5 2004 S/P right knee arthroscopy Z98.890 01/2016 S/P total knee arthroplasty Z96.659 left 05/11/17 Trigger finger M65.30 Psychiatric History: No pertinent psych hx Lives: Spouse/ Significant Other Smoking Status: Former smoker Alcohol: None Drugs: None - *Family History Maternal Family History: Family History (Last Reviewed 04/29/20 @ 09:29 by Awilda Heard) Father COPD (chronic obstructive pulmonary disease) Mother Cancer Brother Myocardial infarction CVA (cerebral vascular accident) CAD (coronary artery disease) Diabetes Hyperlipidemia Sister COPD (chronic obstructive pulmonary disease) Ovarian cancer Review of Systems Constitutional: Denies: Anorexia, Chills, Fever, Night Sweats Eyes: Denies: Blurred vision, Double vision, Drainage, Redness HEENT: Denies: Difficulty Hearing, Dysphasia, Ear Pain, Eye Pain, Nasal Congestion, Sore Throat Cardiovascular: Reports: Chest Pain, Chest Tightness. Denies: Edema, Heaviness, Light Headedness, Palpitations, Paroxysmal Noc. Dyspnea, Syncope Respiratory: Denies: Cough, Pleuritic Pain, Shortness of Breath, Sputum production, Wheezing Gastrointestinal: Denies: Abdominal Pain, Constipation, Diarrhea, Nausea, Vomiting Genitourinary: Denies: Dysuria, Frequency, Hematuria Musculoskeletal: Denies: Arm Pain, Back Pain, Foot Pain Skin: Denies: Dryness, Rash Neurological: Denies: Balance problems, Double vision, Change in Speech, Slurred speech, Confusion, Headaches, Incoordination, Numbness Psychiatric: Denies: Anxiety, Depression Endocrine: Denies: Change in Body Habitus, Polydipsia, Polyuria VTE Information - Inpt Only VTE Present on Admission: No VTE Mechan Device Prophylaxis: None VTE Pharm Prophylaxis ordered?: Yes - Physical Exam Vitals/I&O's: Vital Signs Temp Pulse Resp BP Pulse Ox 95.5 F L 60 17 138/62 H 98 11/18/20 16:25 11/18/20 17:27 11/18/20 16:25 11/18/20 17:27 11/18/20 16:27 Oxygen Delivery Method Room Air Weight: 228 lb 2.855 oz Body Mass Index (BMI) 35.7 General: Alert, Oriented x3, Cooperative, No apparent distress HEENT: Atraumatic, PERRLA, EOMI, Normocephalic Oral: Moist Mucosa, No Gingival or Mucosal Lesions/ Ulcerations Neck: Supple, No JVD, Negative Carotid Bruits, Trachea Midline, Thyroid Normal Size and Texture Lungs: Clear to auscultation, No rhonchi, No wheeze, No rales, Diminished Cardiovascular: Regular rate, Regular Rhythm, Normal S1, Normal S2, PMI Normal Abdomen: Bowel Sounds Present, Soft, Non Tender, Non-Distended, No Hepato-splenomegaly Extremities: No clubbing, No cyanosis, No edema Skin: No rashes, No breakdown Lymphatic: No Cervical, Supraclavicular, or Inguinal Adenopathy Neurological: Cranial nerves II-XII grossly intact, Motor Exam 5/5 strength throughout Psych/Mental Status: Normal Affect, Appropriate, Alert and oriented to time, place, person, mood and affect Laboratory Results 11/18/20 16:35: WBC 6.3, RBC 4.35 L, Hgb 14.4, Hct 41.4, MCV 95.2 H, MCH 33.1 H, MCHC 34.8, RDW Std Deviation 45.7 H, RDW Coeff of Sloan 13.2, Plt Count 144 L, MPV 10.1, Immature Gran % (Auto) 0.300, Neut % (Auto) 62.0, Lymph % (Auto) 22.2, Leslie % (Auto) 9.8, Eos % (Auto) 5.2 H, Baso % (Auto) 0.5, Absolute Neuts (auto) 3.9, Absolute Lymphs (auto) 1.40, Nucleated RBC % 0 11/18/20 16:35: Sodium 138, Potassium 4.1, Chloride 106, Carbon Dioxide 25.0, Anion Gap 7, BUN 26 H, Creatinine 1.36 H, Estim Creat Clear Calc 45.90, Est GFR (MDRD) Af Amer 66, Est GFR (MDRD) Non-Af 55 L, BUN/Creatinine Ratio 19.1, Glucose 139 H, Calcium 9.7, Troponin I < 0.015 Clinical Impression(s) from Imaging Studies Chest X-Ray 11/18/20 17:15 IMPRESSION: Normal x-ray examination of the chest. Electronically Signed: Aki Jimenez MD at 17:27 EDT Tel , Service support , Assessment/Plan This is a 70 years old male patient presented to the emergency room because of chest pain and he is being admitted for evaluation and treatment. #1 chest pain: Initial EKG was unremarkable. Troponin is negative. Chest x-ray showed no acute findings. Patient had a history of CAD status post stents back in 2003. Plan: Admit to PCU for observation, cardiac monitoring, serial cardiac enzymes, sublingual nitro as needed, Tylenol PM, Zofran as needed, nuclear stress test tomorrow morning if cardiac enzymes are negative, gentle IV fluids for hydration, repeat CBC and BMP tomorrow morning. #2 CAD status post stents: EKG reviewed as above, troponin is negative. Plan as above, continue aspirin, lisinopril, ezetimibe and gemfibrozil. #3 Dehydration: Baseline creat has been fluctuating anywhere between 1 to 1.4 mg/dL. GFR has been always normal. Plan: Gentle IV fluids for hydration, input output chart, repeat BMP tomorrow morning. #4 hypertension: Blood pressure stable, continue Norvasc and lisinopril. #5 hyperlipidemia: Continue ezetimibe and gemfibrozil. #6 gout: Stable, continue allopurinol, hold colchicine for now. #7 DVT prophylaxis: Subcu Lovenox. This note was generated with [employer] dictation software. It may contain incorrect words, spelling, and punctuation that were not noted in checking the note before signing. OBSV E&M: 55646 Initial observation care L2
[2020-11-18] MEDS: 0.9% Normal Saline 1,000 ML 75 ML IV (20:10)
[2020-11-18] MEDS: Calcium Carbonate 500 MG Tablet 1000 MG PO (22:25)
--- NOTE | 2020-11-19 01:46 | EKG12_ITS ---
Test Reason : CP ADMISSION Blood Pressure : / mmHG Vent. Rate : 063 BPM Atrial Rate : 063 BPM P-R Int : 166 ms QRS Dur : 090 ms QT Int : 406 ms P-R-T Axes : 036 -04 018 degrees QTc Int : 415 ms Sinus rhythm with marked sinus arrhythmia Inferior infarct , age undetermined Abnormal ECG When compared with ECG of 18-NOV-2020 16:31, MANUAL COMPARISON REQUIRED, DATA IS UNCONFIRMED Confirmed by THAO DILLARD, KAELYN ([id number]), publications editor VALERI HOANG ([id number]) on 11/20/2020 1:13:12 PM Referred By: ANNE Confirmed By:KAELYN OSUNA MD
[2020-11-19 03:45] VITALS: BP 152/64; PULSE 58; RESP 18; TEMP 36.5; O2SAT 96
[2020-11-19 04:51] VITALS: PULSE 54
--- NOTE | 2020-11-19 05:55 | EKG12_ITS ---
Test Reason : AM EKG Blood Pressure : / mmHG Vent. Rate : 070 BPM Atrial Rate : 070 BPM P-R Int : 162 ms QRS Dur : 086 ms QT Int : 408 ms P-R-T Axes : 024 -07 012 degrees QTc Int : 440 ms Sinus rhythm with Premature atrial complexes Inferior infarct , age undetermined Abnormal ECG Confirmed by ZAIRA DILLARD, RAUL ([id number]), associate editor VALERI HOANG ([id number]) on 11/21/2020 11:39:35 AM Referred By: ANNE Confirmed By:RAUL MENESES MD
[2020-11-19 06:10] VITALS: BP 137/75; PULSE 63; RESP 18; TEMP 36.5; O2SAT 94
[2020-11-19] MEDS: Lisinopril 20 MG Tablet PO (06:13)
[2020-11-19] MEDS: Aspirin 325 MG Tablet PO (06:14)
[2020-11-19 07:00] VITALS: PULSE 67
[2020-11-19 07:07] LABS: Absolute Lymphocyte Count 1.26 X10^3/uL (0.83-4.51); Absolute Neutrophil Count 3.2 X10^3/uL (2.0-7.7); Basophil# 0.03 X10^3/uL; Basophil% 0.6 % (0-1); Eosinophil# 0.35 X10^3/uL; Eosinophils% 6.5 % (0-5); Hematocrit 36.9 % (40-54); Hemoglobin 12.8 g/dL (13.0-16.5); Lymphocyte # 1.26 X10^3/ul (4.0); Lymphocyte % 23.2 % (19-41); Mean Corp Hgb Conc 34.7 g/dL (32-36); Mean Corpuscular Hgb 33.5 pg (27.0-32.0); Mean Corpuscular Volume 96.6 fL (80-94); Mean Platelet Vol. 10.7 fl (6.2-12.0); Monocyte# 0.61 X10^3/uL; Monocyte% 11.3 % (0-10); NRBC Flagged by Analyzer 0 % (0-5); Neutrophil # 3.16 X10^3/uL (2.7-7.7); Neutrophil % 58.2 % (47-70); Platelet Count 134 K/mm3 (150-450); RBC Distribution Width CV 13.3 % (11.6-14.6); RBC Distribution Width SD 46.5 fl (35.1-43.9); Red Blood Count 3.82 M/mm3 (4.6-6.2); White Blood Count 5.4 K/mm3 (4.4-11.0)
[2020-11-19 07:29] LABS: Anion Gap 5 (5-15); BUN 22 mg/dL (7-18); BUN/Creat Ratio 22.2 RATIO (10-20); Calcium,Total 8.9 mg/dL (8.5-10.1); Chloride 109 mmol/L (98-107); Creatinine, Serum 0.99 mg/dL (0.70-1.30); EST Glomerular Filtration Rate 79 mL/min (>60); Est Glom Filt Rate - Afr Amer 96 mL/min (>60); Estimated Creatinine Clearance 63.06 ml/min; Glucose 112 mg/dL (74-106); Potassium 3.7 mmol/L (3.5-5.1); Sodium Level 139 mmol/L (136-145)
[2020-11-19 07:32] VITALS: O2SAT 93
--- NOTE | 2020-11-19 10:09 | STRESSREP ---
Stress Test Report Date: Procedure: Pharmacologic stress nuclear imaging study Indications: Pain; CAD; PCI Consent: Per the patient Procedure: The patient underwent pharmacologic (Regadenoson 0.4mg ) evaluation with a peak heart rate of 93 beats per minute (62%predicted maximal heart rate) and a peak blood pressure of 162/70 mmHg. The baseline ECG demonstrated sinus bradycardia. The peak pharmacologic ECG demonstrated no obvious ECG changes. There were no cardiac dysrhythmias pretest, during pharmacologic infusion, or recovery. There was no complaint of chest discomfort during pharmacologic infusion or recovery. The examination was discontinued secondary to completion of protocol. Impression: 1. Pharmacologic (Regadenoson) evaluation 2. Peak pharmacologic ECG with no obvious ECG changes. 3. There were no cardiac dysrhythmias pretest, during pharmacologic infusion, or recovery. 4. Nuclear images pending Myocardial perfusion imaging study: Technique: The patient was injected with 14.9 millicuries of technetium 99m Cardiolite and subsequently rest SPECT Cardiolite nuclear imaging was obtained in the horizontal long, vertical long, and short axis views. The patient underwent pharmacologic (Regadenoson) evaluation with a peak heart rate of 93 beats per minute (62% percent predicted maximal heart rate) and a peak blood pressure of 162/70 mmHg. The patient was injected with 44.1 millicuries of technetium 99m Cardiolite and subsequently stress SPECT Cardiolite nuclear imaging was obtained in the horizontal long, vertical long, and short axis views. A gated Cardiolite study at peak stress was obtained. Interpretation: Rest and stress SPECT Cardiolite nuclear imaging status post realignment, normalization, and attenuation correction demonstrate a small area of subtle diminished tracer uptake near the apical segments without significant change between rest and stress. There is end systolic thickening and brightening. The gated Cardiolite study demonstrates myocardial thickening and inward wall motion. The reported LVEF is a 61%. Impression: 1. Rest and stress SPECT Cardiolite nuclear imaging demonstrate a small area of subtle diminished tracer uptake near the apical segments without significant change between rest and stress appearing compatible with physiologic apical thinning with no myocardial perfusion changes considered diagnostic for associated stress-induced myocardial ischemia. 2. The gated Cardiolite study reports an LVEF of 61%. This note was generated with [employer] software. It may contain incorrect words, spelling, and punctuation that were not noted in checking the note before signing.
[2020-11-19 10:50] VITALS: BP 146/76; PULSE 58; RESP 18; TEMP 36.7; O2SAT 96
[2020-11-19] MEDS: Allopurinol 300 MG Tablet PO (10:51)
[2020-11-19] MEDS: amLODIPine 10 MG Tablet PO (10:51)
[2020-11-19] MEDS: Ezetimibe 10 MG Tablet PO (10:51)
[2020-11-19] MEDS: Gemfibrozil 600 MG Tablet PO (10:51)
--- NOTE | 2020-11-19 11:48 | DCINST_ITS ---
- Discharge Diagnoses Current Active Problems: Current Active and Chronic Problems (Last Updated 11/18/20 @ 17:[address] Silas Barahona MD) Essential hypertension (Chronic) Presence of stent in coronary artery (Chronic ~06/2004) PTCA of Lt CX 1996; PTCA/FITZ to OM and PTCA/BMS 06/12 Atherosclerotic heart disease of [place] coronary artery without angina pectoris (Chronic) PTCA of Lt CX 1996; PTCA/FITZ to OM and PTCA/BMS 06/12 Hyperlipidemia (Chronic) You will use the following diet at home:: Cardiac Discharge Activity: Return to Normal Activity Allergies/Adverse Reactions: Allergies hydromorphone [From Dilaudid] Allergy (Verified 04/29/20 09:28) Itching morphine Allergy (Verified 04/29/20 09:28) Hives orange flavor Allergy (Verified 11/18/20 16:25) MOUTH SORES Dvuyokl-Cji-Gay Reductase Inhibitor Allergy (Verified 11/18/20 19:02) weakness weakness atorvastatin [From Lipitor] Adverse Reaction (Mild, Verified 11/18/20 19:02) weakness lovastatin [From Mevacor] Adverse Reaction (Mild, Verified 11/18/20 19:02) weakness oxycodone [From Percocet] Adverse Reaction (Mild, Verified 11/18/20 19:02) hallucinations pravastatin [From Pravachol] Adverse Reaction (Mild, Verified 11/18/20 19:02) weakness Medications to take at Discharge Allopurinol [Zyloprim] 300 mg PO DAILY 05/04/17 aspirin 325 mg tablet 325 mg PO QDAY 09/16/17 lisinopril 20 mg tablet 20 mg PO QDAY 10/22/17 meloxicam 15 mg tablet 15 mg PO QDAY 10/22/17 colchicine 0.6 mg tablet 0.6 mg PO DAILY PRN 12/05/18 niacin 1,000 mg tablet,extended release 24 hr 1,000 mg PO BID tab 12/05/18 nitroglycerin 0.4 mg sublingual tablet 0.4 mg SUBLINGUAL Q5M PRN #90 tab 12/05/18 Acetaminophen [Tylenol] 500 - 1,000 mg PO Q6H PRN PRN 07/31/19 gemfibrozil 600 mg tablet 600 mg PO BIDAC #180 tab 03/14/20 ezetimibe 10 mg tablet 10 mg PO DAILY #90 tab 07/29/20 Amlodipine Besylate [Norvasc] 10 mg PO DAILY 11/18/20 Primary Care Physician: Benjamin Prado DO [Primary Care Provider] - Please follow up with your Primary Care Physician in: 1 Week Test Results: Test results from this visit will be discussed in further detail at your follow- up appointment, if applicable. Please Follow Up With: Baljinder Benítez MD When: As scheduled Proposed Discharge Date: 11/19/20
--- NOTE | 2020-11-19 11:55 | DS.PCM_ITS ---
<Diana Cortez SENIOR ACCOUNTANT ANALYST - Last Filed: 11/19/20 11:59> Discharge Date and Diagnosis Date of Admission: 11/18/20 Date of Discharge: 11/19/20 - Primary Discharge Diagnosis Acute Problems: 1. Chest pain, ACS ruled out 2. CAD with history of stents 3. Dehydration, mild 4. Hypertension 5. Hyperlipidemia 6. Gout - Secondary Discharge Diagnosis Chronic Problems: Chronic Problems (Last Updated 11/18/20 @ 17:[address] 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 Electronically Signed: Aki Jimenez MD at 17:27 EDT Tel , Service support , Operations: None Procedures: Stress test Summary of Care Provided: The patient is a 70 year old M admitted 11/18/20 due to chest pain. 1. Chest pain, ACS ruled out-troponin negative. EKG without acute changes. Patient underwent nuclear stress test which was negative for ischemia. LVEF 61%. Follow-up with PCP in 1 week. 2. CAD with history of stents- follows with Dr. Benítez. Continue outpatient follow-up as scheduled. Continue aspirin, lisinopril, gemfibrozil. 3. Dehydration, mild-resolved with IV fluids. Patient states he drinks coffee throughout the day, advised on reduction in caffeine intake with increased water intake. 4. Hypertension-stable, continue amlodipine, lisinopril. 5. Hyperlipidemia-on gemfibrozil, niacin. 6. Gout-on allopurinol, colchicine as needed. Patient seen and examined prior to discharge. Physical assessment as noted below. Patient is stable for discharge with follow up recommendations as noted above. This patient was seen by TIANNA Bautista under the supervision of Dr. Olivo. - Physical Exam Vitals/I&O's: Vital Signs Temp Pulse Resp BP Pulse Ox 98.0 F 58 L 18 146/76 H 96 11/19/20 10:50 11/19/20 10:50 11/19/20 10:50 11/19/20 10:50 11/19/20 10:50 Oxygen Delivery Method Room Air Weight: 227 lb 11.8 oz Body Mass Index (BMI) 35.6 Intake and Output for Last 24 Hours 11/17/20 11/18/20 11/19/20 23:59 23:59 23:59 Intake Total 200 / 200 1050 / 1050 Output Total 650 / 650 Balance 200 / 200 400 / 400 General: Alert, Oriented x3, Cooperative HEENT: Atraumatic, PERRLA, EOMI, Normocephalic Neck: Supple, No JVD, Negative Carotid Bruits Lungs: Clear to auscultation, Normal air movement Cardiovascular: Regular rate, No murmurs Abdomen: Bowel Sounds Present, Soft, Non Tender, Non-Distended Extremities: No clubbing, No cyanosis, No edema, Capillary Refill Less than 3 Seconds Skin: No rashes, No breakdown Musculoskeletal: No Tenderness to Palpation of Joints or Extremities Neurological: Cranial nerves II-XII grossly intact, Neuro grossly intact Psych/Mental Status: Normal Affect, Appropriate Laboratory Results 11/18/20 16:35: WBC 6.3, RBC 4.35 L, Hgb 14.4, Hct 41.4, MCV 95.2 H, MCH 33.1 H, MCHC 34.8, RDW Std Deviation 45.7 H, RDW Coeff of [place] 13.2, Plt Count 144 L, MPV 10.1, Immature Gran % (Auto) 0.300, Neut % (Auto) 62.0, Lymph % (Auto) 22.2, [place] % (Auto) 9.8, Eos % (Auto) 5.2 H, Baso % (Auto) 0.5, Absolute Neuts (auto) 3.9, Absolute Lymphs (auto) 1.40, Nucleated RBC % 0 04/12/21 16:35: Sodium 138, Potassium 4.1, Chloride 106, Carbon Dioxide 25.0, Anion Gap 7, BUN 26 H, Creatinine 1.36 H, Estim Creat Clear Calc 45.90, Est GFR (MDRD) Af Amer 66, Est GFR (MDRD) Non-Af 55 L, BUN/Creatinine Ratio 19.1, Glucose 139 H, Calcium 9.7, Troponin I < 0.015 11/18/20 19:25: Troponin I < 0.015 11/18/20 22:19: Troponin I < 0.015 11/19/20 06:00: WBC 5.4, RBC 3.82 L, Hgb 12.8 L, Hct 36.9 L, MCV 96.6 H, MCH 33.5 H, MCHC 34.7, RDW Std Deviation 46.5 H, RDW Coeff of [place] 13.3, Plt Count 134 L, MPV 10.7, Immature Gran % (Auto) 0.200, Neut % (Auto) 58.2, Lymph % (Auto) 23.2, [place] % (Auto) 11.3 H, Eos % (Auto) 6.5 H, Baso % (Auto) 0.6, Absolute Neuts (auto) 3.2, Absolute Lymphs (auto) 1.26, Nucleated RBC % 0 11/19/20 06:00: Sodium 139, Potassium 3.7, Chloride 109 H, Carbon Dioxide 25.0, Anion Gap 5, BUN 22 H, Creatinine 0.99, Estim Creat Clear Calc 63.06, Est GFR (MDRD) Af Amer 96, Est GFR (MDRD) Non-Af 79, BUN/Creatinine Ratio 22.2 H, Glucose 112 H, Calcium 8.9 11/19/20 06:00: Hemoglobin A1c Pending Current Medications Acetaminophen (Acetaminophen 325 Mg Tablet) 650 mg PO Q6H PRN PRN PRN Reason: Pain Score 1-10/Temp > 100.7 F Allopurinol (Allopurinol 300 Mg Tablet) 300 mg PO DAILY [facility] Last Admin: 11/19/20 10:51 Dose: 300 mg Documented by: Amlodipine Besylate (Amlodipine 10 Mg Tablet) 10 mg PO DAILY [facility] Last Admin: 11/19/20 10:51 Dose: 10 mg Documented by: Aspirin (Aspirin 325 Mg Tablet) 325 mg PO DAILY [facility] Last Admin: 11/19/20 06:14 Dose: 325 mg Documented by: Calcium Carbonate (Calcium Carbonate 500 Mg Tablet) 1,000 mg PO Q6H PRN PRN PRN Reason: INDIGESTION Last Admin: 11/18/20 22:25 Dose: 1,000 mg Documented by: Ezetimibe (Ezetimibe 10 Mg Tablet) 10 mg PO DAILY [facility] Last Admin: 11/19/20 10:51 Dose: 10 mg Documented by: Enoxaparin Sodium (Enoxaparin 30 Mg/0.3 Ml Syringe) 30 mg SC DAILY [facility] Last Admin: 11/19/20 10:52 Dose: Not Given Documented by: Gemfibrozil (Gemfibrozil 600 Mg Tablet) 600 mg PO BIDAC [facility] Last Admin: 11/19/20 10:51 Dose: 600 mg Documented by: Lisinopril (Lisinopril 20 Mg Tablet) 20 mg PO DAILY [facility] Last Admin: 11/19/20 06:13 Dose: 20 mg Documented by: Nitroglycerin (Nitroglycerin (Inpatient Use) 0.4 Mg Tab.Subl) 0.4 mg SL Q5M PRN PRN Reason: CARDIAC/CHEST PAIN Ondansetron HCl (Ondansetron 4 Mg/2 Ml Vial) 4 mg IV Q8H PRN PRN PRN Reason: NAUSEA/VOMITING Senna/Docusate Sodium (Senna/Docusate Sodium 1 Tablet) 2 tablet PO BID PRN PRN PRN Reason: Constipation Sodium Chloride (0.9% Saline Lock 10 Ml Syringe) 10 - 40 ml IV UD PRN PRN Reason: SALINE FLUSH Zolpidem Tartrate (Zolpidem Tartrate 5 Mg Tablet) 5 mg PO QHS PRN PRN PRN Reason: INSOMNIA Discharge Diet: Low fat/ Low Cholesterol Discharge Activity: Return to Normal Activity Home Medications: Medications to take at Discharge Allopurinol [Zyloprim] 300 mg PO DAILY 05/04/17 aspirin 325 mg tablet 325 mg PO QDAY 09/16/17 lisinopril 20 mg tablet 20 mg PO QDAY 10/22/17 meloxicam 15 mg tablet 15 mg PO QDAY 10/22/17 colchicine 0.6 mg tablet 0.6 mg PO DAILY PRN 12/05/18 niacin 1,000 mg tablet,extended release 24 hr 1,000 mg PO BID tab 12/05/18 nitroglycerin 0.4 mg sublingual tablet 0.4 mg SUBLINGUAL Q5M PRN #90 tab 12/05/18 Acetaminophen [Tylenol] 500 - 1,000 mg PO Q6H PRN PRN 07/31/19 gemfibrozil 600 mg tablet 600 mg PO BIDAC #180 tab 03/14/20 ezetimibe 10 mg tablet 10 mg PO DAILY #90 tab 07/29/20 Amlodipine Besylate [Norvasc] 10 mg PO DAILY 11/18/20 Primary Care Physician: Benjamin Prado DO [Primary Care Provider] - Please follow up with your Primary Care Physician in: 1 Week Please Follow Up With: Baljinder Benítez MD When: As scheduled Disposition: Home Minutes spent on discharge:: 35 Patient Condition:: Stable Medical Necessity - Tobacco Use Smoking Status: Former smoker Meaningful Use Info Meaningful Use Diagnoses (Choose all that apply): None applicable <Kyle Olivo - Last Filed: 11/19/20 15:44> Discharge Date and Diagnosis - Secondary Discharge Diagnosis Chronic Problems: Chronic Problems (Last Updated 11/18/20 @ 17:[address] 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 Data reviewed. I agree with the above note by the nurse practitioner. The patient is a 70 year old M presents with left-sided chest pain., EKG, troponins and stress test were negative for any acute myocardial infarction. Patient symptoms have since resolved. Patient denies any injury, heavy lifting that may have exacerbated this. Patient informed the etiology is unclear seems atypical for GI and does not, at this time, appear to be musculoskeletal. Given the negative stress test no additional work-up necessary. Patient to follow-up with cardiology as outpatient. [] - Physical Exam Vitals/I&O's: Vital Signs Temp Pulse Resp BP Pulse Ox 36.7 C 58 L 18 146/76 H 96 11/19/20 10:50 11/19/20 10:50 11/19/20 10:50 11/19/20 10:50 11/19/20 10:50 Oxygen Delivery Method Room Air Weight: 103.3 kg Body Mass Index (BMI) 35.6 Intake and Output for Last 24 Hours 11/17/20 11/18/20 11/19/20 23:59 23:59 23:59 Intake Total 200 / 200 1290 / 1290 Output Total 650 / 650 Balance 200 / 200 640 / 640 General: Alert, Cooperative HEENT: Atraumatic, Normocephalic Lungs: Clear to auscultation, Normal air movement, No rhonchi, No wheeze Cardiovascular: Regular rate, No murmurs Abdomen: Bowel Sounds Present, Soft, Non Tender, Non-Distended Extremities: No edema, No Calf Tenderness Laboratory Results 11/18/20 16:35: WBC 6.3, RBC 4.35 L, Hgb 14.4, Hct 41.4, MCV 95.2 H, MCH 33.1 H, MCHC 34.8, RDW Std Deviation 45.7 H, RDW Coeff of [place] 13.2, Plt Count 144 L, MPV 10.1, Immature Gran % (Auto) 0.300, Neut % (Auto) 62.0, Lymph % (Auto) 22.2, [place] % (Auto) 9.8, Eos % (Auto) 5.2 H, Baso % (Auto) 0.5, Absolute Neuts (auto) 3.9, Absolute Lymphs (auto) 1.40, Nucleated RBC % 0 11/18/20 16:35: Sodium 138, Potassium 4.1, Chloride 106, Carbon Dioxide 25.0, Anion Gap 7, BUN 26 H, Creatinine 1.36 H, Estim Creat Clear Calc 45.90, Est GFR (MDRD) Af Amer 66, Est GFR (MDRD) Non-Af 55 L, BUN/Creatinine Ratio 19.1, Glucose 139 H, Calcium 9.7, Troponin I < 0.015 11/18/20 19:25: Troponin I < 0.015 11/18/20 22:19: Troponin I < 0.015 11/19/20 06:00: WBC 5.4, RBC 3.82 L, Hgb 12.8 L, Hct 36.9 L, MCV 96.6 H, MCH 33.5 H, MCHC 34.7, RDW Std Deviation 46.5 H, RDW Coeff of [place] 13.3, Plt Count 134 L, MPV 10.7, Immature Gran % (Auto) 0.200, Neut % (Auto) 58.2, Lymph % (Auto) 23.2, [place] % (Auto) 11.3 H, Eos % (Auto) 6.5 H, Baso % (Auto) 0.6, Absolute Neuts (auto) 3.2, Absolute Lymphs (auto) 1.26, Nucleated RBC % 0 11/19/20 06:00: Sodium 139, Potassium 3.7, Chloride 109 H, Carbon Dioxide 25.0, Anion Gap 5, BUN 22 H, Creatinine 0.99, Estim Creat Clear Calc 63.06, Est GFR (MDRD) Af Amer 96, Est GFR (MDRD) Non-Af 79, BUN/Creatinine Ratio 22.2 H, Glucose 112 H, Calcium 8.9 11/19/20 06:00: Hemoglobin A1c 5.4 Discharge Diet: Low fat/ Low Cholesterol Discharge Activity: Return to Normal Activity Disposition: Home Minutes spent on discharge:: 35 Patient Condition:: Stable Medical Necessity - Tobacco Use Smoking Status: Former smoker Meaningful Use Info Meaningful Use Diagnoses (Choose all that apply): None applicable OBSV E&M: 05567 Observation care discharge
[2020-11-19 12:46] LABS: Hemoglobin A1c 5.4 % (3.8-5.6)
== END 2020-11-19 11:48 | disposition home or self-care (01) ==
LOC: ED 17:17 → PCU 18:28
PROVIDERS: Nurse Practitioner Family; Admitting Provider Hospitalist; Emergency Provider Emergency Medicine; PCP Family Medicine
DX: R07.89 Other chest pain (principal); I25.10 Atherosclerotic heart disease of native coronary artery without angina pectoris; I10 Essential (primary) hypertension; E78.5 Hyperlipidemia, unspecified; I25.2 Old myocardial infarction; M10.9 Gout, unspecified; M17.0 Bilateral primary osteoarthritis of knee; E86.0 Dehydration; Z79.899 Other long term (current) drug therapy; Z95.5 Presence of coronary angioplasty implant and graft; Z79.82 Long term (current) use of aspirin; Z87.891 Personal history of nicotine dependence
CPT/HCPCS: 36415; 71045; 78452; 80048; 83036; 84484; 85025; 93005; 93017; 96360; 96361; 99218; 99285; 99406; A9500; J7030; A4216; G0378; J2785

== ENCOUNTER → 2021-04-15 08:51 | Outpatient (CLI) | payer MEDICARE, OTHER, SELFPAY ==
[2021-04-15 10:03] LABS: AST(SGOT) 17 U/L (15-37); Alanine Aminotransfer ALT/SGPT 24 U/L (16-61); Albumin, Serum 3.7 g/dL (3.2-5.0); Alkaline Phosphatase 96 U/L (45-117); Bilirubin, Direct 0.11 mg/dL (0.00-0.30); Cholesterol 162 mg/dL (200); Globulin 3.4 g/dL (2.2-4.2); High Density Lipoprotein 40 mg/dL; Protein, Total 7.1 g/dL (6.4-8.2); Triglycerides 117 mg/dL; Very Low Density Lipoprotein 23 mg/dL (5-40)
== END ==
PROVIDERS: PCP Family Medicine; Referring Provider Internal Medicine Cardiovascular Disease; Visit Provider Internal Medicine Cardiovascular Disease
DX: E78.5 Hyperlipidemia, unspecified (principal); E78.00 Pure hypercholesterolemia, unspecified
CPT/HCPCS: 36415; 80061; 80076

== ENCOUNTER 2021-10-29 09:00 | Outpatient (CLI) | payer MEDICARE, OTHER, SELFPAY ==
[2021-10-29 10:10] LABS: AST(SGOT) 26 U/L (15-37); Alanine Aminotransfer ALT/SGPT 34 U/L (16-61); Albumin, Serum 3.7 g/dL (3.2-5.0); Alkaline Phosphatase 116 U/L (45-117); Bilirubin, Direct 0.13 mg/dL (0.00-0.30); Cholesterol 167 mg/dL (200); Globulin 3.3 g/dL (2.2-4.2); High Density Lipoprotein 44 mg/dL; PSA,Total- Diagnostic 9.14 ng/mL (0.0-4.0); Triglycerides 123 mg/dL; Very Low Density Lipoprotein 25 mg/dL (5-40)
== END 2021-10-29 23:59 | disposition home or self-care (01) ==
LOC: LAB 09:02
PROVIDERS: Internal Medicine Cardiovascular Disease; PCP Family Medicine; Referring Provider Urology; Visit Provider Urology
DX: N40.1 Benign prostatic hyperplasia with lower urinary tract symptoms (principal); E78.00 Pure hypercholesterolemia, unspecified; E78.5 Hyperlipidemia, unspecified
CPT/HCPCS: 36415; 80061; 80076; 84153

== ENCOUNTER → 2022-05-06 | Outpatient (CLI) | payer MEDICARE, OTHER, SELFPAY ==
[2022-05-06 08:40] LABS: AST(SGOT) 23 U/L (15-37); Alanine Aminotransfer ALT/SGPT 29 U/L (16-61); Albumin, Serum 3.6 g/dL (3.2-5.0); Alkaline Phosphatase 102 U/L (45-117); Bilirubin, Direct 0.13 mg/dL (0.00-0.30); Cholesterol 128 mg/dL (200); Globulin 3.3 g/dL (2.2-4.2); High Density Lipoprotein 39 mg/dL; Protein, Total 6.9 g/dL (6.4-8.2); Triglycerides 84 mg/dL; Very Low Density Lipoprotein 17 mg/dL (5-40)
== END | disposition home or self-care (01) ==
LOC: LAB 08:03
PROVIDERS: PCP Family Medicine; Visit Provider Internal Medicine Cardiovascular Disease
DX: E78.00 Pure hypercholesterolemia, unspecified (principal)
CPT/HCPCS: 36415; 80061; 80076

== ENCOUNTER → 2022-11-05 | Outpatient (CLI) | payer MEDICARE, OTHER, SELFPAY ==
[2022-11-05 08:31] LABS: AST(SGOT) 15 U/L (15-37); Alanine Aminotransfer ALT/SGPT 19 U/L (16-61); Albumin, Serum 3.8 g/dL (3.2-5.0); Alkaline Phosphatase 117 U/L (45-117); Bilirubin, Direct 0.11 mg/dL (0.00-0.30); Cholesterol 172 mg/dL (200); Globulin 3.5 g/dL (2.2-4.2); High Density Lipoprotein 42 mg/dL; PSA,Total- Diagnostic 7.68 ng/mL (0.0-4.0); Protein, Total 7.3 g/dL (6.4-8.2); Triglycerides 89 mg/dL; Very Low Density Lipoprotein 18 mg/dL (5-40)
== END | disposition home or self-care (01) ==
LOC: LAB 07:18
PROVIDERS: PCP Family Medicine; Referring Provider Internal Medicine Cardiovascular Disease; Visit Provider Internal Medicine Cardiovascular Disease
DX: N40.1 Benign prostatic hyperplasia with lower urinary tract symptoms (principal); E78.00 Pure hypercholesterolemia, unspecified
CPT/HCPCS: 36415; 80061; 80076; 84153

== ENCOUNTER → 2023-01-01 | Outpatient (CLI) | payer MEDICARE, OTHER, SELFPAY ==
--- NOTE | 2023-01-01 08:39 | CDU_ITS ---
Reason For Study: BILATERAL CAROTID BRUITS Rt. Velocities/BP Lt. Velocities/BP Prox CCA 57.5/9.4 cm/sec. Prox CCA 73.6/14.6 cm/sec. Mid CCA 65.1/6.5 cm/sec. Mid CCA 92.0/14.6 cm/sec. Dist CCA 62.3/11.2 cm/sec. Dist CCA 56.4/12.2 cm/sec. Prox ICA 50.9/10.3 cm/sec. Prox ICA 65.8/13.0 cm/sec. Mid ICA 76.1/18.5 cm/sec. Mid ICA 54.8/8.6 cm/sec. Dist ICA 80.8/18.7 cm/sec. Dist ICA 66.1/14.2 cm/sec. Rt. ICA/CCA = 80.8/65.1=1.2. Lt. ICA/CCA = 66.1/92.0=0.7. Prox ECA 81.2/9.8 cm/sec. Prox ECA 113.7/10.6 cm/sec. Rt. Vert. 53.0/7.6 cm/sec. Lt. Vert. 47.4/6.6 cm/sec. Right Extracranial There is intimal thickening but no significant atherosclerotic plaque noted in the right common carotid artery. There is homogeneous, smooth atherosclerotic plaque noted in the right internal carotid artery. The distal right internal carotid artery is not well visualized. There is intimal thickening but no significant atherosclerotic plaque noted in the right external carotid artery. Antegrade flow is noted in the right vertebral artery. Left Extracranial There is homogeneous, smooth atherosclerotic plaque noted in the left common carotid artery. There is heterogeneous, irregular atherosclerotic plaque noted in the left internal carotid artery. The distal left internal carotid artery is not well visualized. There is no significant atherosclerotic plaque noted in the left external carotid artery. Antegrade flow is noted in the left vertebral artery. Procedure Carotid Duplex 62244. This is a Carotid Duplex examination using B-mode, color flow and specral Doppler. Exam performed in department. VL/Carotid Duplex Ultrasound Interpretation Summary Mild (<50%) stenosis right extracranial internal carotid. Mild (<50%) stenosis left extracranial internal carotid. Patent and antegrade vertebrals bilaterally. Ordering Physician: Awilda Grande Referring Physician: Benjamin Prado Performed By: Dorothy Sampson RDCS, RVT
== END | disposition home or self-care (01) ==
LOC: CVS 08:36
PROVIDERS: PCP Family Medicine; Referring Provider Physician Assistant Medical; Visit Provider Physician Assistant Medical
DX: R09.89 Other specified symptoms and signs involving the circulatory and respiratory systems (principal)
CPT/HCPCS: 93880

== ENCOUNTER → 2023-05-18 | Outpatient (CLI) | payer MEDICARE, OTHER, SELFPAY ==
[2023-05-18 09:02] LABS: AST(SGOT) 12 U/L (15-37); Alanine Aminotransfer ALT/SGPT 21 U/L (16-61); Albumin, Serum 3.7 g/dL (3.2-5.0); Alkaline Phosphatase 105 U/L (45-117); Bilirubin, Direct 0.08 mg/dL (0.00-0.30); Cholesterol 167 mg/dL (200); Globulin 3.4 g/dL (2.2-4.2); High Density Lipoprotein 40 mg/dL; Protein, Total 7.1 g/dL (6.4-8.2); Triglycerides 156 mg/dL; Very Low Density Lipoprotein 31 mg/dL (5-40)
== END | disposition home or self-care (01) ==
LOC: LAB 07:25
PROVIDERS: PCP Family Medicine; Referring Provider Physician Assistant Medical; Visit Provider Physician Assistant Medical
DX: E78.00 Pure hypercholesterolemia, unspecified (principal)
CPT/HCPCS: 36415; 80061; 80076

== ENCOUNTER → 2023-11-29 | Outpatient (CLI) | payer MEDICARE, OTHER, SELFPAY ==
[2023-11-29 09:21] LABS: AST(SGOT) 19 U/L (15-37); Alanine Aminotransfer ALT/SGPT 16 U/L (16-61); Albumin, Serum 3.7 g/dL (3.2-5.0); Alkaline Phosphatase 97 U/L (45-117); Cholesterol 165 mg/dL (200); Globulin 3.4 g/dL (2.2-4.2); High Density Lipoprotein 41 mg/dL; Protein, Total 7.1 g/dL (6.4-8.2); Triglycerides 117 mg/dL; Very Low Density Lipoprotein 23 mg/dL (5-40)
== END | disposition home or self-care (01) ==
LOC: LAB 08:10
PROVIDERS: Physician Assistant Medical; PCP Family Medicine; Referring Provider Urology; Visit Provider Urology
DX: R97.20 Elevated prostate specific antigen [PSA] (principal); E78.00 Pure hypercholesterolemia, unspecified
CPT/HCPCS: 36415; 80061; 80076; 84153

== ENCOUNTER → 2024-06-13 | Outpatient (CLI) | payer MEDICARE, OTHER, SELFPAY ==
[2024-06-13 09:03] LABS: AST(SGOT) 16 U/L (15-37); Alanine Aminotransfer ALT/SGPT 18 U/L (16-61); Alkaline Phosphatase 109 U/L (45-117); Bilirubin, Direct 0.15 mg/dL (0.00-0.30); Cholesterol 181 mg/dL (200); Globulin 3.4 g/dL (2.2-4.2); High Density Lipoprotein 48 mg/dL; Protein, Total 7.4 g/dL (6.4-8.2); Triglycerides 111 mg/dL; Very Low Density Lipoprotein 22 mg/dL (5-40)
== END | disposition home or self-care (01) ==
LOC: LAB 07:54
PROVIDERS: PCP Family Medicine; Referring Provider Physician Assistant Medical; Visit Provider Physician Assistant Medical
DX: E78.00 Pure hypercholesterolemia, unspecified (principal)
CPT/HCPCS: 36415; 80061; 80076

== ENCOUNTER → 2024-07-13 | Outpatient (CLI) | payer MEDICARE, OTHER, SELFPAY ==
[2024-07-13 17:54] LABS: Absolute Lymphocyte Count 1.17 X10^3/uL (0.83-4.51); Absolute Neutrophil Count 4.8 X10^3/uL (2.0-7.7); Basophil# 0.04 X10^3/uL; Basophil% 0.6 % (0-1); Eosinophil# 0.45 X10^3/uL; Eosinophils% 6.4 % (0-5); Hematocrit 39.7 % (40-54); Hemoglobin 13.7 g/dL (13.0-16.5); Lymphocyte # 1.17 X10^3/ul (0.83-4.51); Lymphocyte % 16.6 % (19-41); Mean Corp Hgb Conc 34.5 g/dL (32-36); Mean Corpuscular Volume 95.7 fL (80-94); Mean Platelet Vol. 10.6 fl (6.2-12.0); Monocyte# 0.61 X10^3/uL; Monocyte% 8.7 % (0-10); NRBC Flagged by Analyzer 0 % (0-5); Neutrophil # 4.76 X10^3/uL (2.7-7.7); Neutrophil % 67.6 % (47-70); Platelet Count 163 K/mm3 (150-450); RBC Distribution Width CV 12.9 % (11.6-14.6); RBC Distribution Width SD 44.8 fl (35.1-43.9); Red Blood Count 4.15 M/mm3 (4.6-6.2)
[2024-07-13 18:08] LABS: Anion Gap 6 (5-15); BUN 23 mg/dL (7-18); BUN/Creat Ratio 17.2 RATIO (10-20); Calcium,Total 9.7 mg/dL (8.5-10.1); Chloride 110 mmol/L (98-107); Creatinine, Serum 1.34 mg/dL (0.70-1.30); EST Glomerular Filtration Rate 55 mL/min (>60); Est Glom Filt Rate - Afr Amer 67 mL/min (>60); Glucose 107 mg/dL (74-106); Sodium Level 140 mmol/L (136-145); Uric Acid 5.6 mg/dL (3.5-7.2)
[2024-07-13 20:56] LABS: Hemoglobin A1c 5.4 % (3.8-5.6)
== END | disposition home or self-care (01) ==
PROVIDERS: PCP Family Medicine; Referring Provider Family Medicine; Visit Provider Family Medicine
DX: I10 Essential (primary) hypertension (principal); M10.9 Gout, unspecified; R73.01 Impaired fasting glucose
CPT/HCPCS: 36415; 80048; 83036; 84550; 85025

== ENCOUNTER → 2024-12-12 | Outpatient (CLI) | payer MEDICARE, OTHER, SELFPAY ==
[2024-12-12 09:02] LABS: AST(SGOT) 20 U/L (<=37); Alanine Aminotransfer ALT/SGPT 15 U/L (<=46); Albumin, Serum 4.5 g/dL (3.4-4.8); Alkaline Phosphatase 115 U/L (40-129); Bilirubin, Direct 0.17 mg/dL (0.00-0.30); Cholesterol 173 mg/dL (<=200); Globulin 2.7 g/dL (2.2-4.2); High Density Lipoprotein 40 mg/dL; Low Density Lipoprotein Calc. 112 mg/dL; PSA,Total - Annual Screen 9.12 ng/mL (0.02-4.00); Protein, Total 7.2 g/dL (5.9-8.4); Total Bilirubin 0.42 mg/dL (0.00-1.30); Triglycerides 106 mg/dL; Very Low Density Lipoprotein 21 mg/dL (5-40); cholesterol:hdl ratio screen 4.36
== END | disposition home or self-care (01) ==
LOC: LAB 07:08
PROVIDERS: PCP Family Medicine; Referring Provider Physician Assistant Medical; Visit Provider Physician Assistant Medical
DX: R97.20 Elevated prostate specific antigen [PSA] (principal); E78.00 Pure hypercholesterolemia, unspecified
CPT/HCPCS: 36415; 80061; 80076; 84153; G0103

== ENCOUNTER → 2025-06-20 | Outpatient (CLI) | payer MEDICARE, OTHER, SELFPAY ==
[2025-06-20 10:19] LABS: Hematocrit 39.8 % (40-54); Hemoglobin 13.9 g/dL (13.0-16.5); Immature Granulocytes Count 0.020 X10^3/uL (0.0-0.0); Mean Corp Hgb Conc 34.9 g/dL (32-36); Mean Corpuscular Volume 97.1 fL (80-94); Mean Platelet Vol. 10.4 fl (6.2-12.0); NRBC Flagged by Analyzer 0 % (0-5); Platelet Count 152 K/mm3 (150-450); RBC Distribution Width CV 13.2 % (11.6-14.6); RBC Distribution Width SD 46.8 fl (35.1-43.9); Red Blood Count 4.10 M/mm3 (4.6-6.2); White Blood Count 5.5 K/mm3 (4.4-11.0)
[2025-06-20 10:50] LABS: AST(SGOT) 19 U/L (<=37); Alanine Aminotransfer ALT/SGPT 13 U/L (<=46); Albumin, Serum 4.5 g/dL (3.4-4.8); Alkaline Phosphatase 99 U/L (40-129); Anion Gap 12 (5-15); BUN 26 mg/dL (4-19); BUN/Creat Ratio 19.4 RATIO (10-20); Bilirubin, Direct 0.15 mg/dL (0.00-0.30); Calcium,Total 9.9 mg/dL (7.6-11.0); Carbon Dioxide 23.4 mmol/L (21.0-32.0); Chloride 108 mmol/L (98-108); Cholesterol 176 mg/dL (<=200); Globulin 2.8 g/dL (2.2-4.2); Glucose 117 mg/dL (70-99); Low Density Lipoprotein Calc. 115 mg/dL; Potassium 4.1 mmol/L (3.3-5.1); Triglycerides 106 mg/dL; Uric Acid 5.3 mg/dL (3.5-7.2); Very Low Density Lipoprotein 21 mg/dL (5-40); cholesterol:hdl ratio screen 4.19
== END | disposition home or self-care (01) ==
LOC: MTLAB 08:29
PROVIDERS: Physician Assistant Medical; PCP Family Medicine; Referring Provider Family Medicine; Visit Provider Family Medicine
DX: I25.10 Atherosclerotic heart disease of native coronary artery without angina pectoris (principal); I10 Essential (primary) hypertension; M10.9 Gout, unspecified; E78.5 Hyperlipidemia, unspecified; E78.00 Pure hypercholesterolemia, unspecified
CPT/HCPCS: 36415; 80048; 80061; 80076; 84550; 85025